=== PATIENT | male | born 1990 | race Caucasian/White ===

== ENCOUNTER 2017-02-06 03:08 | Emergency (ER) | payer OTHER ==
[2017-02-06 03:15] VITALS: TEMP 97.4
[2017-02-06] MEDS ORDERED: ONDANSETRON 4 MG/2 ML VIAL IVP STA (03:48)
[2017-02-06] MEDS ORDERED: HYDROmorphone 1 MG/ML 1 ML SYRINGE IVP STA (03:48)
[2017-02-06] MEDS ORDERED: SODIUM CHLORIDE 0.9% 1,000 ML IV STA (03:48)
[2017-02-06] MEDS: SODIUM CHLORIDE 0.9% 1,000 ML IV STA ×2 (03:59→08:39)
[2017-02-06 04:06] LABS: Basophils # (A) 0.1 k/uL (0-0.2); Basophils % (A) 1 %; CH 30.1; CHCM 34.9; Eosinophils # (A) 0.2 k/uL (0-0.7); Eosinophils % (A) 3 %; HCT 44.4 % (39.0-53.0); HDW 2.75; HGB 15.6 gm/dL (13.0-17.5); Luc # (Auto) 0.25; Luc % (Auto) 4; Lymphocytes # (A) 1.9 k/uL (1.0-4.8); Lymphocytes % (A) 31 %; MCH 30.4 pg (25.0-35.0); MCHC 35.1 g/dL (31.0-37.0); MCV 86.6 fL (80.0-100.0); Mean Platelet Volume 8.4; Monocytes # (A) 0.4 k/uL (0-1.0); Monocytes % (A) 7 %; Neutrophils # (A) 3.3 k/uL (1.3-7.7); Neutrophils % (A) 54 %; RBC 5.13 m/uL (4.30-5.90); RDW 13.4 % (11.5-15.5); WBC 6.1 k/uL (3.8-10.6); WBC (Perox) 5.77
[2017-02-06 04:17] LABS: ALT 61 U/L (21-72); AST 29 U/L (17-59); Alkaline Phosphatase 65 U/L (38-126); Amylase 74 U/L (30-110); Anion Gap 12 mmol/L; Blood Urea Nitrogen 13 mg/dL (9-20); Calcium 9.6 mg/dL (8.4-10.2); Carbon Dioxide 28 mmol/L (22-30); Chloride 102 mmol/L (98-107); Glucose 110 mg/dL (74-99); Non-African American GFR(MDRD) >60 (>60 ml/min/1.73 sqM); Potassium 4.4 mmol/L (3.5-5.1); Sodium 142 mmol/L (137-145); Total Bilirubin 0.7 mg/dL (0.2-1.3); Total Protein 8.2 g/dL (6.3-8.2)
[2017-02-06 04:19] LABS: Appearance,Urine Clear (Clear); Bilirubin,Urine Negative (Negative); Glucose,Urine (UA) Negative (Negative); Ketones,Urine Negative (Negative); Leukocyte Esterase,Urine Negative (Negative); Mucus,Urine Few /hpf; Nitrite,Urine Negative (Negative); PH, Urine 5.5 (5.0-8.0); Particle Count 4074; Protein,Urine Trace (Negative); RBC,Urine >182 /hpf (0-5); Specific Gravity,Urine 1.018 (1.001-1.035); UA Billing (MACRO vs. MICRO) MICRO; Urobilinogen,Urine <2.0 mg/dL (<2.0); WBC,Urine 3 /hpf (0-5)
--- NOTE | 2017-02-06 04:28 | XR ---
EXAM: XR Abdomen, 2 View. CLINICAL HISTORY: Reason: abdominal pain TECHNIQUE: Frontal supine view of the abdomen/pelvis. COMPARISON: CT abdomen pelvis dated 08/04/2015 FINDINGS: Gastrointestinal tract: Unremarkable. No dilation. Bones/joints: Unremarkable. IMPRESSION: Normal abdominal x-ray.
[2017-02-06] MEDS ORDERED: HYDROmorphone 1 MG/ML 1 ML SYRINGE IVP PRN (06:21)
--- NOTE | 2017-02-06 06:31 | ED ---
Abdominal Pain HPI - General Chief Complaint: Abdominal Pain Stated Complaint: Flank pain/Possible kidney stone Time Seen by Provider: 02/06/17 03:18 Source: patient Mode of arrival: ambulatory Limitations: no limitations - History of Present Illness Initial Comments: And has a history of kidney stones, is complaining about the right-sided flank pain for the last 24 hours he denies any fever no chills he had a nausea no vomiting and denies any trauma to the back at all. Denies any headaches no neck stiffness no abdominal pain except the right flank pain no frequency urgency dysuria no signs of TIA or CVA - Related Data Previous Rx's Medication Instructions Recorded HYDROmorphone [Dilaudid] 2 mg PO Q4H PRN #15 tab 02/06/17 Ibuprofen [Motrin] 800 mg PO TID #45 tab 02/06/17 Tamsulosin [Flomax] 0.4 mg PO DAILY #15 cap 02/06/17 Allergies Allergy/AdvReac Type Severity Reaction Status Date / Time No Known Allergies Allergy Verified 02/06/17 08:04 Review of Systems ROS Statement: Those systems with pertinent positive or pertinent negative responses have been documented in the HPI. ROS Other: All systems not noted in ROS Statement are negative. Past Medical History Additional Past Medical History / Comment(s): kidney stones History of Any Multi-Drug Resistant Organisms: None Reported Past Surgical History: No Surgical Hx Reported Past Psychological History: No Psychological Hx Reported Smoking Status: Current every day smoker Past Alcohol Use History: None Reported Past Drug Use History: None Reported General Exam - General Exam Comments Initial Comments: General: The patient is awake and alert, in no distress at this point Skin: Skin is warm and dry and no rashes or lesions are noted. Eye: Pupils are equal, round and reactive to light, extra-ocular movements are intact; there is normal conjunctiva bilaterally. Ears, nose, mouth and throat: There are moist mucous membranes and no oral lesions. Neck: The neck is supple, there is no tenderness or JVD. Cardiovascular: There is a regular rate and rhythm. No murmur, rub or gallop is appreciated. Respiratory: To auscultation bilateral, no wheezing no rhonchi no distress respiratory early noticed Gastrointestinal: Abdomen is nontender the right upper quadrant over the right lower quadrant area noticed some tenderness in the right flank area Back: There is no tenderness to palpation in the midline. There is no obvious deformity. Musculoskeletal: Normal ROM, no tenderness, There is no pedal edema. There is no calf tenderness or swelling. No cords were appreciated. Neurological: CN II-XII intact, Cranial nerves III through XII are intact. There are no obvious motor or sensory deficits. Coordination appears grossly intact. Speech is normal. Psychiatric: Cooperative, appropriate mood & affect, normal judgment. Limitations: no limitations Course Vital Signs 02/06/17 02/06/17 02/06/17 03:12 07:16 08:42 Temperature 97.4 F L Pulse Rate 94 79 85 Respiratory 18 14 15 Rate Blood Pressure 138/79 135/72 136/60 O2 Sat by Pulse 97 100 95 Oximetry Patient is reassessed at 625, his CBC is normal creatinine is normal, compressive metabolic panel is normal UA shows large amount of blood in there and his pain is returning though he got to 1 mg of Dilaudid considering pain is still there I will order a CT abdomen to rule out any hydronephrosis or hydroureter , He was assessed several times he was given now Dilaudid IV that would help his pain 10 pain will return him he had a couple of liters of fluids, is labs were reviewed and discussed with him his CBC, creatinine, compressive metabolic panel all within normal range CT renal colic showed 1 mm calculus at the right UVJ with sit causes minimal hydroureter nephrosis, considering the size of the stone was likely audible past he be sent home on Dilaudid 2 mg 1 by mouth every 8 when necessary with some [id number] Motrin 4-600 mg by mouth 3 times a day when necessary Flomax 0.4 mg 1 tablet by mouth daily and he be referred to Dr. Cortez for follow-up Medical Decision Making - Lab Data Result diagrams: 02/06/17 03:29 02/06/17 03:29 Lab Results 02/06/17 02/06/17 02/06/17 Range/Units 03:29 03:29 03:29 WBC 6.1 (3.8-10.6) k/uL RBC 5.13 (4.30-5.90) m/uL Hgb 15.6 (13.0-17.5) gm/dL Hct 44.4 (39.0-53.0) % MCV 86.6 (80.0-100.0) fL MCH 30.4 (25.0-35.0) pg MCHC 35.1 (31.0-37.0) g/dL RDW 13.4 (11.5-15.5) % Plt Count 231 (150-450) k/uL Neutrophils % 54 % Lymphocytes % 31 % Monocytes % 7 % Eosinophils % 3 % Basophils % 1 % Neutrophils # 3.3 (1.3-7.7) k/uL Lymphocytes # 1.9 (1.0-4.8) k/uL Monocytes # 0.4 (0-1.0) k/uL Eosinophils # 0.2 (0-0.7) k/uL Basophils # 0.1 (0-0.2) k/uL Sodium 142 (137-145) mmol/L Potassium 4.4 (3.5-5.1) mmol/L Chloride 102 (98-107) mmol/L Carbon Dioxide 28 (22-30) mmol/L Anion Gap 12 mmol/L BUN 13 (9-20) mg/dL Creatinine 0.90 (0.66-1.25) mg/dL Est GFR (MDRD) Af Amer >60 (>60 ml/min/1.73 sqM) Est GFR (MDRD) Non-Af >60 (>60 ml/min/1.73 sqM) Glucose 110 H (74-99) mg/dL Calcium 9.6 (8.4-10.2) mg/dL Total Bilirubin 0.7 (0.2-1.3) mg/dL AST 29 (17-59) U/L ALT 61 (21-72) U/L Alkaline Phosphatase 65 (38-126) U/L Total Protein 8.2 (6.3-8.2) g/dL Albumin 4.8 (3.5-5.0) g/dL Amylase 74 (30-110) U/L Lipase 103 (23-300) U/L Urine Color Yellow Urine Appearance Clear (Clear) Urine pH 5.5 (5.0-8.0) Ur Specific [place] 1.018 (1.001-1.035) Urine Protein Trace H (Negative) Urine Glucose (UA) Negative (Negative) Urine Ketones Negative (Negative) Urine Blood Moderate H (Negative) Urine Nitrite Negative (Negative) Urine Bilirubin Negative (Negative) Urine Urobilinogen <2.0 (<2.0) mg/dL Ur Leukocyte Esterase Negative (Negative) Urine RBC >182 H (0-5) /hpf Urine WBC 3 (0-5) /hpf Urine Mucus Few H (None) /hpf Disposition Clinical Impression: Right flank pain, Hematuria, Ureterolithiasis Disposition: HOME SELF-CARE Instructions: Ureteral Stones (ED) Prescriptions: HYDROmorphone [Dilaudid] 2 mg PO Q4H PRN #15 tab PRN Reason: Pain Ibuprofen [Motrin] 800 mg PO TID #45 tab Tamsulosin [Flomax] 0.4 mg PO DAILY #15 cap Referrals: None,Stated [Primary Care Provider] - 1-2 days
--- NOTE | 2017-02-06 06:55 | CT ---
EXAM: CT Abdomen and Pelvis Without Intravenous Contrast. CLINICAL HISTORY: Pain TECHNIQUE: Axial computed tomography images of the abdomen and pelvis without intravenous contrast. CTDI is 0.25, to 1.7 mGy and DLP is 11/19/02 mGy-cm This CT exam was performed using one or more of the following dose reduction techniques: automated exposure control, adjustment of the mA and/or kV according to patient size, and/or use of iterative reconstruction technique. COMPARISON: CT abdomen and pelvis dated 08/04/2015 FINDINGS: Lower thorax: No acute findings. ABDOMEN: Liver: Unremarkable. Gallbladder and bile ducts: Unremarkable. Pancreas: Unremarkable. Spleen: Unremarkable. Adrenals: Unremarkable. Kidneys and ureters: 1 mm calculus seen at the right UVJ (3-153), which causes minimal hydroureteronephrosis. Stomach and bowel: Unremarkable. Appendix: No findings to suggest acute appendicitis. PELVIS: Bladder: Unremarkable. Reproductive: Unremarkable as visualized. ABDOMEN and PELVIS: Intraperitoneal space: Unremarkable. Bones/joints: No acute fracture. No dislocation. Soft tissues: Small fat-containing umbilical hernia. Vasculature: Unremarkable. Lymph nodes: Unremarkable. IMPRESSION: 1 mm calculus seen at the right UVJ (3-153), which causes minimal hydroureteronephrosis.
[2017-02-06] MEDS ORDERED: SODIUM CHLORIDE 0.9% 1,000 ML IV ONE (08:38)
[2017-02-06] MEDS ORDERED: KETOROLAC 30 MG/ML 1 ML VIAL IVP STA (08:38)
[2017-02-06 09:12] VITALS: BP 130/82; PULSE 79; RESP 16
== END 2017-02-06 09:17 | disposition home or self-care (01) ==
LOC: EC 03:08
DX: N20.1 Calculus of ureter (principal); F17.200 Nicotine dependence, unspecified, uncomplicated
CPT/HCPCS: 36415; 80053; 82150; 83690; 85025; 81001; 74000; 74176; 99284; 96374; 96375 ×2; 96376; 96361; J2405; J1885; J1170

== ENCOUNTER 2017-02-28 22:42 | Emergency (ER) | payer OTHER ==
[2017-02-28] MEDS ORDERED: SODIUM CHLORIDE 0.9% 1,000 ML IV ONE (22:59)
[2017-02-28] MEDS ORDERED: KETOROLAC 30 MG/ML 1 ML VIAL IVP STA (23:03)
[2017-02-28] MEDS ORDERED: HYDROmorphone 1 MG/ML 1 ML SYRINGE IVP STA (23:03)
[2017-02-28] MEDS ORDERED: ONDANSETRON 4 MG/2 ML VIAL IVP STA (23:03)
--- NOTE | 2017-02-28 23:03 | ED ---
Abdominal Pain HPI - General Chief Complaint: Abdominal Pain Stated Complaint: kidney stone Time Seen by Provider: 02/28/17 22:59 Source: patient, RN notes reviewed Mode of arrival: ambulatory Limitations: no limitations - History of Present Illness Initial Comments: Patient is a 26-year-old male presents to the emergency room for evaluation of left-sided flank pain. Patient states the pain began today. Patient states he has a history of kidney stones. Patient states this feels exactly like a kidney stone. Patient states he took Flomax and hydromorphone today with no relief of symptoms. Patient states the pain is getting worse. Patient is a very nauseated but denies any vomiting. Patient also states he is having trouble urinating. Patient denies any blood in the urine. Patient denies chest pain or shortness of breath. Patient denies headache or dizziness. Patient states he is having 10 out of 10 constant pain. Patient states movement does not make pain any worse. - Related Data Home Medications Medication Instructions Recorded Confirmed HYDROmorphone [Dilaudid] 2 mg PO Q4H PRN 02/28/17 02/28/17 Tamsulosin HCl [Flomax] 0.4 mg PO DAILY 02/28/17 02/28/17 Previous Rx's Medication Instructions Recorded HYDROcodone/APAP 5-325MG [[place] 1 tab PO Q6HR PRN #12 tab 03/01/17 5-325] Ondansetron Odt [Zofran Odt] 4 mg PO Q8HR PRN #12 tab 03/01/17 Allergies Allergy/AdvReac Type Severity Reaction Status Date / Time No Known Allergies Allergy Verified 02/28/17 23:03 Review of Systems ROS Statement: Those systems with pertinent positive or pertinent negative responses have been documented in the HPI. ROS Other: All systems not noted in ROS Statement are negative. Past Medical History Additional Past Medical History / Comment(s): kidney stones History of Any Multi-Drug Resistant Organisms: None Reported Past Surgical History: No Surgical Hx Reported Past Psychological History: No Psychological Hx Reported Smoking Status: Current every day smoker Past Alcohol Use History: None Reported Past Drug Use History: None Reported General Exam - General Exam Comments Initial Comments: Sitting in exam room, uncomfortable secondary to pain but no acute distress. Limitations: no limitations General appearance: alert, in no apparent distress Head exam: Present: atraumatic, normocephalic, normal inspection Eye exam: Present: normal appearance ENT exam: Present: normal exam Neck exam: Present: normal inspection Respiratory exam: Present: normal lung sounds bilaterally. Absent: respiratory distress Cardiovascular Exam: Present: regular rate, normal rhythm, normal heart sounds GI/Abdominal exam: Present: soft, normal bowel sounds. Absent: distended, tenderness, guarding, rebound, rigid Extremities exam: Present: normal inspection Back exam: Present: normal inspection, CVA tenderness (L). Absent: CVA tenderness (R) Neurological exam: Present: alert, oriented X3, CN II-XII intact, normal gait Psychiatric exam: Present: normal affect, normal mood Skin exam: Present: warm, dry, intact, normal color. Absent: rash Course Vital Signs 02/28/17 22:56 Temperature 98.2 F Pulse Rate 80 Respiratory 20 Rate Blood Pressure 151/88 O2 Sat by Pulse 98 Oximetry Medical Decision Making - Medical Decision Making Patient is a 18-year-old male presents emergency room for evaluation of left- sided flank pain. Patient does have a history of kidney stones. Patient states this feels similar to kidney stone. Urinalysis significant for trace hematuria. KUB x-ray shows no sniffing findings. Patient is most likely passing a stone. Will send patient home with pain medications and anti-nausea medications and advised to follow-up with a urologist. Patient states he's feeling much better after pain medications and fluids given and would like to be discharged home. Patient states he understands everything that was discussed with him. Return parameters discussed. Case discussed with Dr. Bianchi. - Lab Data Result diagrams: 02/28/17 23:20 02/28/17 23:20 Lab Results 02/28/17 02/28/17 02/28/17 Range/Units 23:20 23:20 23:20 WBC 7.8 (3.8-10.6) k/uL RBC 5.32 (4.30-5.90) m/uL Hgb 16.0 (13.0-17.5) gm/dL Hct 45.6 (39.0-53.0) % MCV 85.8 (80.0-100.0) fL MCH 30.1 (25.0-35.0) pg MCHC 35.0 (31.0-37.0) g/dL RDW 13.0 (11.5-15.5) % Plt Count 232 (150-450) k/uL Neutrophils % 70 % Lymphocytes % 18 % Monocytes % 6 % Eosinophils % 3 % Basophils % 1 % Neutrophils # 5.5 (1.3-7.7) k/uL Lymphocytes # 1.4 (1.0-4.8) k/uL Monocytes # 0.5 (0-1.0) k/uL Eosinophils # 0.2 (0-0.7) k/uL Basophils # 0.1 (0-0.2) k/uL Sodium 139 (137-145) mmol/L Potassium 4.2 (3.5-5.1) mmol/L Chloride 100 (98-107) mmol/L Carbon Dioxide 26 (22-30) mmol/L Anion Gap 13 mmol/L BUN 16 (9-20) mg/dL Creatinine 1.04 (0.66-1.25) mg/dL Est GFR (MDRD) Af Amer >60 (>60 ml/min/1.73 sqM) Est GFR (MDRD) Non-Af >60 (>60 ml/min/1.73 sqM) Glucose 126 H (74-99) mg/dL Calcium 9.9 (8.4-10.2) mg/dL Total Bilirubin 0.7 (0.2-1.3) mg/dL AST 25 (17-59) U/L ALT 49 (21-72) U/L Alkaline Phosphatase 71 (38-126) U/L Total Protein 8.6 H (6.3-8.2) g/dL Albumin 4.8 (3.5-5.0) g/dL Urine Color Yellow Urine Appearance Clear (Clear) Urine pH 5.5 (5.0-8.0) Ur Specific [place] 1.025 (1.001-1.035) Urine Protein Trace H (Negative) Urine Glucose (UA) Negative (Negative) Urine Ketones Negative (Negative) Urine Blood Trace H (Negative) Urine Nitrite Negative (Negative) Urine Bilirubin Negative (Negative) Urine Urobilinogen <2.0 (<2.0) mg/dL Ur Leukocyte Esterase Negative (Negative) Urine RBC 1 (0-5) /hpf Urine WBC 1 (0-5) /hpf Ur Squamous Epith Cells <1 (0-4) /hpf Urine Mucus Few H (None) /hpf - Radiology Data Radiology results: report reviewed, image reviewed Disposition Clinical Impression: Acute flank pain Disposition: HOME SELF-CARE Condition: Good Instructions: Kidney Stones (ED), Flank Pain (ED), How to Strain Your Urine (ED ) Additional Instructions: Drink plenty of water. Take medications as needed. Please follow-up with a urologist. If any new symptom arises or symptoms worsen, return to ER as soon as possible. Prescriptions: HYDROcodone/APAP 5-325MG [[place] 5-325] 1 tab PO Q6HR PRN #12 tab PRN Reason: Pain Ondansetron Odt [Zofran Odt] 4 mg PO Q8HR PRN #12 tab PRN Reason: Nausea Referrals: Nilesh Stewart MD [STAFF PHYSICIAN] - 1-2 days Time of Disposition: 00:25
[2017-02-28 23:40] LABS: Appearance,Urine Clear (Clear); Bilirubin,Urine Negative (Negative); Glucose,Urine (UA) Negative (Negative); Ketones,Urine Negative (Negative); Leukocyte Esterase,Urine Negative (Negative); Mucus,Urine Few /hpf; Nitrite,Urine Negative (Negative); PH, Urine 5.5 (5.0-8.0); Particle Count 4251; Protein,Urine Trace (Negative); RBC,Urine 1 /hpf (0-5); Specific Gravity,Urine 1.025 (1.001-1.035); Squamous Epithelial Cell,Urine <1 /hpf (0-4); UA Billing (MACRO vs. MICRO) MICRO; Urobilinogen,Urine <2.0 mg/dL (<2.0); WBC,Urine 1 /hpf (0-5)
[2017-02-28 23:46] LABS: ALT 49 U/L (21-72); AST 25 U/L (17-59); Alkaline Phosphatase 71 U/L (38-126); Anion Gap 13 mmol/L; Blood Urea Nitrogen 16 mg/dL (9-20); Calcium 9.9 mg/dL (8.4-10.2); Carbon Dioxide 26 mmol/L (22-30); Chloride 100 mmol/L (98-107); Glucose 126 mg/dL (74-99); Non-African American GFR(MDRD) >60 (>60 ml/min/1.73 sqM); Potassium 4.2 mmol/L (3.5-5.1); Sodium 139 mmol/L (137-145); Total Bilirubin 0.7 mg/dL (0.2-1.3); Total Protein 8.6 g/dL (6.3-8.2)
[2017-03-01 00:04] LABS: Basophils # (A) 0.1 k/uL (0-0.2); Basophils % (A) 1 %; CH 30.7; CHCM 35.9; Eosinophils # (A) 0.2 k/uL (0-0.7); Eosinophils % (A) 3 %; HCT 45.6 % (39.0-53.0); HDW 2.81; Luc # (Auto) 0.21; Luc % (Auto) 3; Lymphocytes # (A) 1.4 k/uL (1.0-4.8); Lymphocytes % (A) 18 %; MCH 30.1 pg (25.0-35.0); MCV 85.8 fL (80.0-100.0); Mean Platelet Volume 7.4; Monocytes # (A) 0.5 k/uL (0-1.0); Monocytes % (A) 6 %; Neutrophils # (A) 5.5 k/uL (1.3-7.7); Neutrophils % (A) 70 %; RBC 5.32 m/uL (4.30-5.90); WBC 7.8 k/uL (3.8-10.6); WBC (Perox) 7.49
--- NOTE | 2017-03-01 00:20 | XR ---
EXAM: XR Abdomen Complete, 2 or More Views. CLINICAL HISTORY: Reason: Pain TECHNIQUE: Frontal view of the abdomen/pelvis with upright view of the abdomen. COMPARISON: Radiograph and CT of 02/06/17. FINDINGS: Free air: None. Gastrointestinal tract: Unremarkable. No dilation. Bones: No acute fracture. IMPRESSION: Unremarkable abdomen and pelvis.
[2017-03-01 00:45] VITALS: BP 131/83; PULSE 89; RESP 18; TEMP 97.6
== END 2017-03-01 00:45 | disposition home or self-care (01) ==
LOC: EC 22:42
DX: R10.9 Unspecified abdominal pain (principal); F17.200 Nicotine dependence, unspecified, uncomplicated; Z87.442 Personal history of urinary calculi; Z79.899 Other long term (current) drug therapy
CPT/HCPCS: 99284; 96374; 96375 ×2; 96361; 36415; 80053; 85025; 81001; 74000; J2405; J1885; J1170

== ENCOUNTER → 2017-08-01 | Outpatient (CLI) | payer OTHER ==
[2017-08-01 10:09] LABS: Blood Urea Nitrogen 11 mg/dL (9-20); Cholesterol 155 mg/dL (<200); Glucose 100 mg/dL (74-99); HDL Cholesterol 37 mg/dL (40-60); Lithium 0.3 mmol/L; Non-African American GFR(MDRD) >60 (>60 ml/min/1.73 sqM)
== END | disposition home or self-care (01) ==
LOC: LABWHC1 09:11
PROVIDERS: ATTEND Psychiatry & Neurology Psychiatry
DX: Z51.81 Encounter for therapeutic drug level monitoring (principal); Z79.899 Other long term (current) drug therapy
CPT/HCPCS: 36415; 80061; 80178; 82565; 82947; 83036; 84439; 84443; 84520

== ENCOUNTER 2018-04-30 13:15 | Emergency (ER) | payer OTHER ==
[2018-04-30 13:31] VITALS: RESP 18
[2018-04-30 14:08] LABS: Basophils % (A) 0 %; Eosinophils # (A) 0.4 k/uL (0-0.7); Eosinophils % (A) 5 %; Lymphocytes # (A) 1.4 k/uL (1.0-4.8); Lymphocytes % (A) 17 %; MCH 30.7 pg (25.0-35.0); MCHC 35.8 g/dL (31.0-37.0); MCV 85.8 fL (80.0-100.0); Mean Platelet Volume 7.8; Monocytes # (A) 0.4 k/uL (0-1.0); Monocytes % (A) 5 %; Neutrophils % (A) 72 %; Platelet Count 178 k/uL (150-450); RDW 13.6 % (11.5-15.5); WBC 8.3 k/uL (3.8-10.6)
--- NOTE | 2018-04-30 14:16 | XR ---
EXAMINATION TYPE: XR foot complete RT DATE OF EXAM: 04/30/2018 CLINICAL HISTORY: Right foot pain with no known injury TECHNIQUE: Frontal, lateral, and oblique images of the right foot are obtained. COMPARISON: None FINDINGS: There is no acute fracture/dislocation evident in the right foot. The joint spaces in the right foot appear within normal limits. There is nonspecific soft tissue swelling of the dorsal and medial midfoot. With more focal soft tissue swelling medial to the right first metatarsal phalangeal joint. IMPRESSION: Right midfoot and forefoot mild soft tissue swelling with no acute fracture or dislocatio n in the right foot.
[2018-04-30 14:19] LABS: Anion Gap 12 mmol/L; Blood Urea Nitrogen 15 mg/dL (9-20); C Reactive Protein 25.1 mg/L (<10.0); Calcium 9.8 mg/dL (8.4-10.2); Carbon Dioxide 24 mmol/L (22-30); Chloride 106 mmol/L (98-107); Glucose 108 mg/dL (74-99); Sodium 142 mmol/L (137-145); Uric Acid 6.9 mg/dL (3.5-8.5)
[2018-04-30] MEDS ORDERED: DEXAMETHASONE SOD PHOSPHATE 10 MG/ML 1 ML VIAL IM STA (14:45)
[2018-04-30] MEDS ORDERED: HYDROcodone/APAP 5-325MG 1 EACH TAB PO STA (14:46)
--- NOTE | 2018-04-30 14:57 | ED ---
General Adult HPI - General Chief complaint: Extremity Injury, Lower Stated complaint: rt foot pain Time Seen by Provider: 04/30/18 13:28 Source: patient, RN notes reviewed Mode of arrival: wheelchair Limitations: no limitations - History of Present Illness Initial comments: 27-year-old male presents to the emergency department for a chief complaint of right great toe pain 2 days. Patient denies injury. Patient states it is painful to touch and walk on. Patient denies history of gout. Patient denies any other joints or areas of redness. Patient has not tried anything for pain. Patient has no other complaints at this time including shortness of breath, chest pain, abdominal pain, nausea or vomiting, headache, or visual changes. - Related Data Home Medications Medication Instructions Recorded Confirmed HYDROmorphone [Dilaudid] 2 mg PO Q4H PRN 02/28/17 02/28/17 Tamsulosin HCl [Flomax] 0.4 mg PO DAILY 02/28/17 02/28/17 Previous Rx's Medication Instructions Recorded HYDROcodone/APAP 5-325MG [[place] 1 tab PO Q6HR PRN #12 tab 03/01/17 5-325] Ondansetron Odt [Zofran Odt] 4 mg PO Q8HR PRN #12 tab 03/01/17 Cephalexin [Keflex] 500 mg PO Q12H 10 Days cap 04/30/18 Indomethacin [Indocin] 50 mg PO Q8H 5 Days capsule 04/30/18 Allergies Allergy/AdvReac Type Severity Reaction Status Date / Time No Known Allergies Allergy Verified 04/30/18 13:29 Review of Systems ROS Statement: Those systems with pertinent positive or pertinent negative responses have been documented in the HPI. ROS Other: All systems not noted in ROS Statement are negative. Past Medical History Additional Past Medical History / Comment(s): kidney stones History of Any Multi-Drug Resistant Organisms: None Reported Past Surgical History: No Surgical Hx Reported Past Psychological History: Bipolar, Depression Smoking Status: Current every day smoker Past Alcohol Use History: None Reported Past Drug Use History: None Reported General Exam Limitations: no limitations General appearance: alert, in no apparent distress Head exam: Present: atraumatic, normocephalic, normal inspection Eye exam: Present: normal appearance ENT exam: Present: normal exam, mucous membranes moist Neck exam: Present: normal inspection. Absent: tenderness, meningismus, lymphadenopathy Respiratory exam: Present: normal lung sounds bilaterally. Absent: respiratory distress, wheezes, rales, rhonchi, stridor Cardiovascular Exam: Present: regular rate, normal rhythm, normal heart sounds. Absent: systolic murmur, diastolic murmur, rubs, gallop, clicks Extremities exam: Present: tenderness (tenderness to right great toe especially MTP joint), normal capillary refill (Refill less than 2 seconds and pedal pulse 2+ in the left lower extremity), joint swelling (Patient does have swelling in the MTP joint of the right great toe. Mild swelling in the foot. No tenderness in the rest of the foot.), other (Sensation intact in the right lower extremity). Absent: full ROM (limited flexion and extension of left great toe.), calf tenderness (tenderness in the right lower extremity. No redness swelling or warmth in the calf. Negative Isaak.) Course Vital Signs 04/30/18 13:29 Temperature 98.0 F Pulse Rate 95 Respiratory 18 Rate Blood Pressure 134/85 O2 Sat by Pulse 99 Oximetry Medical Decision Making - Medical Decision Making 27-year-old male presents to the emergency determine for a chief complaint of right great toe pain 2 days. Patient denies injury. Patient denies history of gout but states he thinks that's what it is. On exam patient has a slightly erythematous right great toe. Tenderness to the MTP joint. Mild swelling throughout the foot. No tenderness in the calf or swelling in the calf. Negative Homans sign. X-ray of the foot shows right mid foot and forefoot mild soft tissue swelling with no acute fracture or dislocation. CBC and CMP within normal limits. CRP slightly elevated. Patient clinically appears to have gout. Dr. Little agrees with this. Patient was given Decadron and [place] in the emergency department. He was given colchicine in the emergency department as well. Patient will be given indomethacin at home as well as Keflex to cover any bacterial cause. He will follow up with primary care in 1-2 days. He will return to the emergency department if he has any worsening symptoms or develops fevers. - Lab Data Result diagrams: 04/30/18 13:50 04/30/18 13:50 Lab Results 04/30/18 04/30/18 Range/Units 13:50 13:50 WBC 8.3 (3.8-10.6) k/uL RBC 4.90 (4.30-5.90) m/uL Hgb 15.0 (13.0-17.5) gm/dL Hct 42.0 (39.0-53.0) % MCV 85.8 (80.0-100.0) fL MCH 30.7 (25.0-35.0) pg MCHC 35.8 (31.0-37.0) g/dL RDW 13.6 (11.5-15.5) % Plt Count 178 (150-450) k/uL Neutrophils % 72 % Lymphocytes % 17 % Monocytes % 5 % Eosinophils % 5 % Basophils % 0 % Neutrophils # 6.0 (1.3-7.7) k/uL Lymphocytes # 1.4 (1.0-4.8) k/uL Monocytes # 0.4 (0-1.0) k/uL Eosinophils # 0.4 (0-0.7) k/uL Basophils # 0.0 (0-0.2) k/uL Sodium 142 (137-145) mmol/L Potassium 4.0 (3.5-5.1) mmol/L Chloride 106 (98-107) mmol/L Carbon Dioxide 24 (22-30) mmol/L Anion Gap 12 mmol/L BUN 15 (9-20) mg/dL Creatinine 0.70 (0.66-1.25) mg/dL Est GFR (CKD-EPI)AfAm >90 (>60 ml/min/1.73 sqM) Est GFR (CKD-EPI)NonAf >90 (>60 ml/min/1.73 sqM) Glucose 108 H (74-99) mg/dL Uric Acid 6.9 (3.5-8.5) mg/dL Calcium 9.8 (8.4-10.2) mg/dL C-Reactive Protein 25.1 H (<10.0) mg/L Disposition Clinical Impression: Gout Disposition: HOME SELF-CARE Condition: Good Instructions: Low Purine Diet (ED), Gout (ED) Additional Instructions: Please take colchicine and keflex as directed. Please follow-up with primary care provider in one to 2 days. Please return to the emergency department if you have any worsening symptoms. Prescriptions: Cephalexin [Keflex] 500 mg PO Q12H 10 Days cap Indomethacin [Indocin] 50 mg PO Q8H 5 Days capsule Is patient prescribed a controlled substance at d/c from ED?: No Referrals: [facility] [Primary Care Provider] - 1-2 days Ricky Farfan MD [STAFF PHYSICIAN] - 1-2 days Time of Disposition: 14:48
[2018-04-30] MEDS ORDERED: COLCHICINE 0.6 MG EACH PO STA (14:58)
[2018-04-30 15:18] VITALS: BP 122/70; PULSE 86; TEMP 98
== END 2018-04-30 15:17 | disposition home or self-care (01) ==
LOC: EC 13:15
DX: M10.9 Gout, unspecified (principal); R79.82 Elevated C-reactive protein (CRP); F17.200 Nicotine dependence, unspecified, uncomplicated; Z79.899 Other long term (current) drug therapy
CPT/HCPCS: 36415; 80048; 84550; 85025; 86140; 87040; 73630; 99283; 96372; J1100

== ENCOUNTER → 2018-05-13 | Outpatient (CLI) | payer OTHER ==
[2018-05-13 12:05] LABS: Blood Urea Nitrogen 15 mg/dL (9-20); Lithium 0.5 mmol/L
[2018-05-13 12:22] LABS: T4, Free (Free Thyroxine) 0.77 ng/dL (0.78-2.19)
== END | disposition home or self-care (01) ==
LOC: LABWHC1 11:09
PROVIDERS: ATTEND Nurse Practitioner
DX: Z51.81 Encounter for therapeutic drug level monitoring (principal); Z79.899 Other long term (current) drug therapy
CPT/HCPCS: 36415; 80178; 82565; 84439; 84443; 84520

== ENCOUNTER 2019-01-29 12:04 | Emergency (ER) | payer OTHER ==
[2019-01-29] MEDS ORDERED: IBUPROFEN 600 MG TAB PO STA (13:03)
--- NOTE | 2019-01-29 13:06 | ED ---
Fever HPI - General Chief Complaint: Fever Stated Complaint: ELOINA Time Seen by Provider: 01/29/19 12:42 Source: patient, RN notes reviewed Mode of arrival: ambulatory Limitations: no limitations - History of Present Illness Initial Comments: This is a 28-year-old male presents emergency Department with chief complaint of cough, congestion, body last 4-5 days. Patient states initially started with a migraine headache for 3 days and diffuse pain. Patient had some intermittent ice, nausea and abdominal discomfort. Patient states she also coughs so hard that his chest has hurt at times. Patient also complained of intermittent blurry vision. Patient denies any [id number] medications at this time. Patient does not feel well. He states he, as felt weak, run down. Patient does not take any daily medications. Patient has normal drug ALLERGIES. - Related Data Previous Rx's Medication Instructions Recorded Azithromycin [Zithromax Z-pack] 0 mg PO DIRECTED #1 pack 01/29/19 predniSONE 50 mg PO DAILY #5 tab 01/29/19 Allergies Allergy/AdvReac Type Severity Reaction Status Date / Time No Known Allergies Allergy Verified 01/29/19 14:21 Review of Systems ROS Statement: Those systems with pertinent positive or pertinent negative responses have been documented in the HPI. ROS Other: All systems not noted in ROS Statement are negative. Past Medical History Additional Past Medical History / Comment(s): kidney stones History of Any Multi-Drug Resistant Organisms: None Reported Past Surgical History: No Surgical Hx Reported Past Psychological History: Bipolar, Depression Smoking Status: Current every day smoker Past Alcohol Use History: None Reported Past Drug Use History: Marijuana General Exam Limitations: no limitations General appearance: alert, in no apparent distress Head exam: Present: atraumatic, normocephalic, normal inspection Eye exam: Present: normal appearance, PERRL, EOMI. Absent: scleral icterus, conjunctival injection, periorbital swelling ENT exam: Present: normal exam, normal oropharynx, mucous membranes moist, TM's normal bilaterally, normal external ear exam Neck exam: Present: normal inspection, full ROM. Absent: tenderness, meningismus, lymphadenopathy Respiratory exam: Present: normal lung sounds bilaterally. Absent: respiratory distress, wheezes, rales, rhonchi, stridor Cardiovascular Exam: Present: normal rhythm, tachycardia, normal heart sounds. Absent: systolic murmur, diastolic murmur, rubs, gallop, clicks Neurological exam: Present: alert Skin exam: Present: warm, dry, intact, normal color. Absent: rash Course Vital Signs 01/29/19 12:14 Temperature 98.4 F Pulse Rate 117 H Respiratory 18 Rate Blood Pressure 126/85 O2 Sat by Pulse 96 Oximetry Medical Decision Making - Medical Decision Making 28-year-old male presented from it with complaints of URI symptoms, not feeling well, coughing fits. Patient symptoms more consistent with acute bronchitis, influenza negative, chest x-ray no evidence of pneumonia. Patient will be discharged advised take [id number] cough and cold medications and follow- up with PCP. Patient agrees with plan. - Lab Data Lab Results 01/29/19 01/29/19 Range/Units 13:31 13:35 POC Glucose (mg/dL) 114 H (75-99) mg/dL POC Glu Programmer ID Jimena López Influenza Type A RNA Not Detected (Not Detectd) Influenza Type B (PCR) Not Detected (Not Detectd) Disposition Clinical Impression: Bronchitis Disposition: HOME SELF-CARE Condition: Stable Instructions (If sedation given, give patient instructions): Acute Bronchitis (ED) Additional Instructions: Please return to the Emergency Department if symptoms worsen or any other concerns. Prescriptions: predniSONE 50 mg PO DAILY #5 tab Azithromycin [Zithromax Z-pack] 0 mg PO DIRECTED #1 pack Is patient prescribed a controlled substance at d/c from ED?: No Referrals: None,Stated [Primary Care Provider] - 1-2 days Time of Disposition: 14:34
--- NOTE | 2019-01-29 13:18 | XR ---
EXAMINATION TYPE: XR chest 2V DATE OF EXAM: 01/29/2019 COMPARISON: NONE HISTORY: Flulike symptoms. Cough and pain per order. TECHNIQUE: Frontal and lateral views of the chest are obtained. FINDINGS: Somewhat low lung volumes are present. There is no focal air space opacity, pleural effusi on, or pneumothorax seen. The cardiac silhouette size is enlarged. The osseous structures are inta ct. IMPRESSION: Cardiomegaly without acute pulmonary process.
[2019-01-29 13:39] LABS: Glucose,Whole Blood 114 mg/dL (75-99)
[2019-01-29 15:00] VITALS: BP 131/72; PULSE 101; RESP 20; TEMP 97.6
== END 2019-01-29 14:55 | disposition home or self-care (01) ==
LOC: EC 12:04
DX: J40 Bronchitis, not specified as acute or chronic (principal); H53.8 Other visual disturbances; F17.200 Nicotine dependence, unspecified, uncomplicated; Z88.8 Allergy status to other drugs, medicaments and biological substances
CPT/HCPCS: 36415; 71046; 87502; 99283

== ENCOUNTER 2019-02-27 16:39 | Emergency (ER) | payer OTHER ==
[2019-02-27] MEDS ORDERED: SODIUM CHLORIDE 0.9% 1,000 ML IV STA (16:46)
[2019-02-27] MEDS ORDERED: LORazepam 1 MG TAB PO STA (17:39)
[2019-02-27 17:44] LABS: Basophils # (A) 0.1 k/uL (0-0.2); Basophils % (A) 1 %; Eosinophils # (A) 0.4 k/uL (0-0.7); Eosinophils % (A) 4 %; HCT 43.6 % (39.0-53.0); HGB 14.3 gm/dL (13.0-17.5); Lymphocytes # (A) 2.2 k/uL (1.0-4.8); Lymphocytes % (A) 22 %; MCH 28.6 pg (25.0-35.0); MCHC 32.8 g/dL (31.0-37.0); MCV 87.4 fL (80.0-100.0); Mean Platelet Volume 7.4; Monocytes # (A) 0.5 k/uL (0-1.0); Monocytes % (A) 5 %; Neutrophils # (A) 6.7 k/uL (1.3-7.7); Neutrophils % (A) 68 %; Platelet Count 237 k/uL (150-450); RDW 13.8 % (11.5-15.5); WBC 9.9 k/uL (3.8-10.6)
[2019-02-27 17:58] LABS: ALT 87 U/L (21-72); AST 40 U/L (17-59); Albumin 4.6 g/dL (3.5-5.0); Alkaline Phosphatase 68 U/L (38-126); Anion Gap 6 mmol/L; Blood Urea Nitrogen 13 mg/dL (9-20); Calcium 9.9 mg/dL (8.4-10.2); Carbon Dioxide 26 mmol/L (22-30); Chloride 107 mmol/L (98-107); Glucose 93 mg/dL (74-99); Magnesium 1.8 mg/dL (1.6-2.3); Potassium 4.3 mmol/L (3.5-5.1); Sodium 139 mmol/L (137-145); Total Bilirubin 0.7 mg/dL (0.2-1.3); Total Protein 7.6 g/dL (6.3-8.2)
[2019-02-27 18:02] LABS: D-Dimer 0.25 mg/L FEU (<0.60); Partial Thromboplastin Time 24.1 sec (22.0-30.0); Prothrombin Time 10.4 sec (9.0-12.0)
--- NOTE | 2019-02-27 18:49 | XR ---
EXAMINATION TYPE: XR chest 2V DATE OF EXAM: 02/27/2019 COMPARISON: 01/29/2019 HISTORY: Chest pain TECHNIQUE: Frontal and lateral views of the chest are obtained. FINDINGS: Heart and mediastinum are normal. Lungs are clear. Diaphragm is normal. Bony thorax appear s normal. IMPRESSION: Normal chest. No change.
[2019-02-27] MEDS ORDERED: KETOROLAC 60 MG/2 ML VIAL IM STA (18:50)
--- NOTE | 2019-02-27 18:57 | ED ---
General Adult HPI - General Chief complaint: Chest Pain Stated complaint: Rib pain Time Seen by Provider: 02/27/19 16:46 Source: patient, RN notes reviewed, old records reviewed Mode of arrival: ambulatory Limitations: no limitations - History of Present Illness Initial comments: 28-year-old male patient with past medical history of bronchitis approximately 3 weeks ago presents to ED with approximately 3 weeks of right-sided rib pain. Patient reports that this pain is worse with movement, tender to palpation. Patient also reports that he does have a mild pleuritic component to this pain. Patient denies any chest pain in anterior sternum or anterior chest wall. Patient denies any chest pain at rest. Patient has any shortness of breath. Patient denies any headache in vision. Patient has abdominal pain, radiation of pain, diaphoresis, nausea vomiting or diarrhea. Systemic: Pt denies fatigue, myalgia, fever/chills, rash. Pt denies weakness, night sweats, weight loss. Neuro: Pt denies headache, visual disturbances, syncope or pre-syncope. HEENT: Pt denies ocular discharge or irritation, otalgia, rhinorrhea, pharyngitis or notable lymphadenopathy. Cardiopulmonary: Pt denies SOB, heart palpitations, dyspnea on exertion. Abdominal/GI: Pt denies abdominal pain, n/v/d. : Pt denies dysuria, burning w/ urination, frequency/urgency. Denies new onset urinary or bowel incontinence. MSK: Pt denies myalgia, loss of strength or function in extremities. Neuro: Pt denies new onset weakness, paresthesias. - Related Data Home Medications Medication Instructions Recorded Confirmed Ibuprofen [Motrin Ib] 400 mg PO Q6H PRN 02/27/19 02/27/19 Previous Rx's Medication Instructions Recorded Ibuprofen [Motrin] 600 mg PO Q6HR PRN #40 day 02/27/19 Allergies Allergy/AdvReac Type Severity Reaction Status Date / Time No Known Allergies Allergy Verified 02/27/19 17:14 Review of Systems ROS Statement: Those systems with pertinent positive or pertinent negative responses have been documented in the HPI. ROS Other: All systems not noted in ROS Statement are negative. Past Medical History Additional Past Medical History / Comment(s): kidney stones History of Any Multi-Drug Resistant Organisms: None Reported Past Surgical History: No Surgical Hx Reported Past Psychological History: Bipolar, Depression Smoking Status: Current every day smoker Past Alcohol Use History: None Reported Past Drug Use History: Marijuana General Exam - General Exam Comments Initial Comments: Constitutional: NAD, AOX3, Pt has pleasant affect. HEENT: NC/AT, trachea midline, neck supple, no lymphadenopathy. Posterior pharynx non erythematous, without exudates. External ears appear normal, without discharge. Mucous membranes moist. Eyes PERRLA, EOM intact. There is no scleral icterus. No pallor noted. Cardiopulmonary: RRR, no murmurs, rubs or gallops, no JVD noted. Lungs CTAB in anterior and posterior zaman. No peripheral edema. Abdominal exam: Abdomen soft and non-distended. Abdomen non-tender to palpation in all 4 quadrants. Bowel sounds active in LLQ. No hepatosplenomegaly. No ecchymosis Neuro: CN II-XII grossly intact. No nuchal rigidity. MSK: Right costal region at anterior axillary line mildly tender to palpation. No erythema, no ecchymoses, no edema. He states that this is the pain that he is experiencing. No posterior calf tenderness bilaterally, homans sign negative bilaterally. Posterior tibialis and radial pulse +2 bilaterally. Sensation intact in upper and lower extremities. Full active ROM in upper and lower extremities, 5/5 stregnth. Limitations: no limitations Course Vital Signs 02/27/19 02/27/19 02/27/19 16:40 18:44 18:48 Temperature 97.4 F L Pulse Rate 115 H 98 Respiratory 20 18 18 Rate Blood Pressure 128/75 137/72 O2 Sat by Pulse 97 Oximetry Medical Decision Making - Medical Decision Making 28-year-old male patient with past medical history of bronchitis approximately 3 weeks ago presents to ED with approximately 3 weeks of right-sided rib pain. Patient reports that this pain is worse with movement, tender to palpation. Patient also reports that he does have a mild pleuritic component to this pain. Patient denies any chest pain in anterior sternum or anterior chest wall. Patient denies any chest pain at rest. Patient has any shortness of breath. Patient denies any headache in vision. Patient has abdominal pain, radiation of pain, diaphoresis, nausea vomiting or diarrhea. Pt VSS, afebrile. Physical exam: Right costal region at anterior axillary line mildly tender to palpation. No erythema, no ecchymoses, no edema. He states that this is the pain that he is experiencing. Labs investigations revealed non-impressive CBC, CMP. Patient coagulation studies within normal limits. D-dimer negative. Troponin negative. EKG not concerning for acute ischemia. CXR did not display acute process. Repeat history taking states that he is very anxious. Administered toradol and ativan. Patient to return on abdomen. Patient is likely experiencing pleurisy secondary to recent bronchitis. Patient to be discharged with ibuprofen. Patient to follow up with primary care provider in 1-2 days. Patient returned ER physician worsens in anyway. Case discussed with Dr. Arriola. - Lab Data Result diagrams: 02/27/19 17:30 02/27/19 17:30 Lab Results 02/27/19 02/27/19 02/27/19 Range/Units 17:30 17:30 17:30 WBC 9.9 (3.8-10.6) k/uL RBC 5.00 (4.30-5.90) m/uL Hgb 14.3 (13.0-17.5) gm/dL Hct 43.6 (39.0-53.0) % MCV 87.4 (80.0-100.0) fL MCH 28.6 (25.0-35.0) pg MCHC 32.8 (31.0-37.0) g/dL RDW 13.8 (11.5-15.5) % Plt Count 237 (150-450) k/uL Neutrophils % 68 % Lymphocytes % 22 % Monocytes % 5 % Eosinophils % 4 % Basophils % 1 % Neutrophils # 6.7 (1.3-7.7) k/uL Lymphocytes # 2.2 (1.0-4.8) k/uL Monocytes # 0.5 (0-1.0) k/uL Eosinophils # 0.4 (0-0.7) k/uL Basophils # 0.1 (0-0.2) k/uL PT 10.4 (9.0-12.0) sec INR 1.0 (<1.2) APTT 24.1 (22.0-30.0) sec D-Dimer 0.25 (<0.60) mg/L FEU Sodium 139 (137-145) mmol/L Potassium 4.3 (3.5-5.1) mmol/L Chloride 107 (98-107) mmol/L Carbon Dioxide 26 (22-30) mmol/L Anion Gap 6 mmol/L BUN 13 (9-20) mg/dL Creatinine 0.90 (0.66-1.25) mg/dL Est GFR (CKD-EPI)AfAm >90 (>60 ml/min/1.73 sqM) Est GFR (CKD-EPI)NonAf >90 (>60 ml/min/1.73 sqM) Glucose 93 (74-99) mg/dL Calcium 9.9 (8.4-10.2) mg/dL Magnesium 1.8 (1.6-2.3) mg/dL Total Bilirubin 0.7 (0.2-1.3) mg/dL AST 40 (17-59) U/L ALT 87 H (21-72) U/L Alkaline Phosphatase 68 (38-126) U/L Troponin I (0.000-0.034) ng/mL Total Protein 7.6 (6.3-8.2) g/dL Albumin 4.6 (3.5-5.0) g/dL 02/27/19 Range/Units 17:30 WBC (3.8-10.6) k/uL RBC (4.30-5.90) m/uL Hgb (13.0-17.5) gm/dL Hct (39.0-53.0) % MCV (80.0-100.0) fL MCH (25.0-35.0) pg MCHC (31.0-37.0) g/dL RDW (11.5-15.5) % Plt Count (150-450) k/uL Neutrophils % % Lymphocytes % % Monocytes % % Eosinophils % % Basophils % % Neutrophils # (1.3-7.7) k/uL Lymphocytes # (1.0-4.8) k/uL Monocytes # (0-1.0) k/uL Eosinophils # (0-0.7) k/uL Basophils # (0-0.2) k/uL PT (9.0-12.0) sec INR (<1.2) APTT (22.0-30.0) sec D-Dimer (<0.60) mg/L FEU Sodium (137-145) mmol/L Potassium (3.5-5.1) mmol/L Chloride (98-107) mmol/L Carbon Dioxide (22-30) mmol/L Anion Gap mmol/L BUN (9-20) mg/dL Creatinine (0.66-1.25) mg/dL Est GFR (CKD-EPI)AfAm (>60 ml/min/1.73 sqM) Est GFR (CKD-EPI)NonAf (>60 ml/min/1.73 sqM) Glucose (74-99) mg/dL Calcium (8.4-10.2) mg/dL Magnesium (1.6-2.3) mg/dL Total Bilirubin (0.2-1.3) mg/dL AST (17-59) U/L ALT (21-72) U/L Alkaline Phosphatase (38-126) U/L Troponin I <0.012 (0.000-0.034) ng/mL Total Protein (6.3-8.2) g/dL Albumin (3.5-5.0) g/dL - EKG Data -: EKG Interpreted by Me EKG Comments: Ventricular rate 107,. NV interval 180, QRS 98, QT/QTC 328/437. Sinus tachycardia, no concern for acute ischemia. Disposition Clinical Impression: Pleurisy, Atypical chest pain Disposition: HOME SELF-CARE Condition: Stable Instructions (If sedation given, give patient instructions): Pleurisy (ED) Additional Instructions: Patient to adhere to previously discussed treatment plan and will take medication(s) as directed. Patient to follow up with PCP in 1-2 days. Patient to return to ED if symptoms do not improve. Please take ibuprofen as directed. Please follow up with PCP in 1-2 days. Please return to ER if condition worsens in anyway. Prescriptions: Ibuprofen [Motrin] 600 mg PO Q6HR PRN #40 day PRN Reason: Pain Is patient prescribed a controlled substance at d/c from ED?: No Referrals: [facility] [Primary Care Provider] - 1-2 days
[2019-02-27 19:50] VITALS: BP 138/76; PULSE 92; RESP 16; TEMP 97.8
== END 2019-02-27 19:40 | disposition home or self-care (01) ==
LOC: EC 16:39
DX: R09.1 Pleurisy (principal); F17.200 Nicotine dependence, unspecified, uncomplicated
CPT/HCPCS: 36415; 93005; 85379; 80053; 83735; 84484; 85025; 85610; 85730; 71046; 99284; 96360; 96372; J1885

== ENCOUNTER 2019-03-23 08:48 | Emergency (ER) | payer OTHER ==
[2019-03-23] MEDS ORDERED: KETOROLAC 60 MG/2 ML VIAL IM STA (09:17)
--- NOTE | 2019-03-23 09:34 | XR ---
EXAMINATION TYPE: XR chest 2V DATE OF EXAM: 03/23/2019 COMPARISON: 02/27/2019 HISTORY: 28-year-old male right-sided pain TECHNIQUE: PA and lateral views FINDINGS: Heart normal size. Aorta and pulmonary vasculature within normal limits. Mild peribronchial cuffing. No consolidation or pleural effusion. IMPRESSION: Mild peribronchial cuffing could reflect bronchitis or asthma. No infiltrate or pleural effusion.
--- NOTE | 2019-03-23 09:40 | ED ---
General Adult HPI - General Chief complaint: Chest Pain Stated complaint: Pleurisy Time Seen by Provider: 03/23/19 09:05 Source: patient, RN notes reviewed Mode of arrival: ambulatory Limitations: no limitations - History of Present Illness Initial comments: Patient's a 28-year-old male presented to the emergency room today with chief complaint of increased right-sided rib pain. Patient does admit that he seen here in the emergency room approximately 3 weeks ago diagnosed with pleurisy. He states he was on ibuprofen please finish this prescription. He does admit that he had some increased cough congestion this past week. He states that the cough congestion has improved but last night began having increased pain to the right side of ribs after coughing. Patient does admit that the pain is worse with certain movements. Patient denies any shortness of breath but states pain is worse when he takes deep inspiration. The patient denies any other complaints at this time. Patient denies any recent fever, chills, shortness of breath, chest pain, back pain, abdominal pain, nausea or vomiting, numbness or tingling, headaches or visual changes, or any other complaints - Related Data Previous Rx's Medication Instructions Recorded Ibuprofen [Motrin] 600 mg PO Q6HR PRN #40 day 03/23/19 predniSONE 50 mg PO DAILY #5 tab 03/23/19 Allergies Allergy/AdvReac Type Severity Reaction Status Date / Time No Known Allergies Allergy Verified 03/23/19 09:08 Review of Systems ROS Statement: Those systems with pertinent positive or pertinent negative responses have been documented in the HPI. ROS Other: All systems not noted in ROS Statement are negative. Past Medical History Additional Past Medical History / Comment(s): kidney stones History of Any Multi-Drug Resistant Organisms: None Reported Past Surgical History: No Surgical Hx Reported Past Psychological History: Bipolar, Depression Smoking Status: Current every day smoker Past Alcohol Use History: None Reported Past Drug Use History: Marijuana General Exam - General Exam Comments Initial Comments: General: The patient is awake and alert, in no distress, and does not appear acutely ill. Eye: There is normal conjunctiva bilaterally. No signs of icterus. Ears, nose, mouth and throat: There are moist mucous membranes and no oral lesions. Neck: The neck is supple, there is no tenderness or JVD. Cardiovascular: There is a regular rate and rhythm. No murmur, rub or gallop is appreciated. Pain reproduced to the right lateral ribs. Respiratory: Lungs are clear to auscultation, respirations are non-labored, breath sounds are equal. No wheezes, stridor, rales, or rhonchi. Musculoskeletal: Normal ROM, no tenderness. Neurological: A&O x 3. CN II-XII intact, There are no obvious motor or sensory deficits. Coordination appears grossly intact. Speech is normal. Skin: Skin is warm and dry and no rashes or lesions are noted. Psychiatric: Cooperative, appropriate mood & affect, normal judgment. Limitations: no limitations Course Vital Signs 03/23/19 08:52 Temperature 97.4 F L Pulse Rate 101 H Respiratory 22 Rate Blood Pressure 128/85 O2 Sat by Pulse 97 Oximetry Medical Decision Making - Medical Decision Making Patient reexamined at this time shows no signs of distress. Was given Toradol here in the emergency room doesn't to some improvement of his pain. Patient's chest x-rays negative for any acute abnormalities. Patient's labs been reviewed. Patient labs were unremarkable. D-dimer negative. Results were discussed with patient. Patient discharged on continued on anti-inflammatories and given a course of steroids for his symptoms. Advised to RETURN here to emergency room if any symptoms increase or worsen. - Lab Data Result diagrams: 03/23/19 09:40 03/23/19 09:40 Lab Results 03/23/19 03/23/19 03/23/19 Range/Units 09:40 09:40 09:40 WBC 5.9 (3.8-10.6) k/uL RBC 5.06 (4.30-5.90) m/uL Hgb 15.0 (13.0-17.5) gm/dL Hct 44.0 (39.0-53.0) % MCV 86.9 (80.0-100.0) fL MCH 29.6 (25.0-35.0) pg MCHC 34.1 (31.0-37.0) g/dL RDW 13.6 (11.5-15.5) % Plt Count 239 (150-450) k/uL Neutrophils % 53 % Lymphocytes % 32 % Monocytes % 5 % Eosinophils % 7 % Basophils % 1 % Neutrophils # 3.2 (1.3-7.7) k/uL Lymphocytes # 1.9 (1.0-4.8) k/uL Monocytes # 0.3 (0-1.0) k/uL Eosinophils # 0.4 (0-0.7) k/uL Basophils # 0.0 (0-0.2) k/uL D-Dimer 0.18 (<0.60) mg/L FEU Sodium 140 (137-145) mmol/L Potassium 4.4 (3.5-5.1) mmol/L Chloride 106 (98-107) mmol/L Carbon Dioxide 26 (22-30) mmol/L Anion Gap 8 mmol/L BUN 18 (9-20) mg/dL Creatinine 0.83 (0.66-1.25) mg/dL Est GFR (CKD-EPI)AfAm >90 (>60 ml/min/1.73 sqM) Est GFR (CKD-EPI)NonAf >90 (>60 ml/min/1.73 sqM) Glucose 112 H (74-99) mg/dL Calcium 9.5 (8.4-10.2) mg/dL Disposition Clinical Impression: Pleurisy Disposition: HOME SELF-CARE Condition: Good Instructions (If sedation given, give patient instructions): Costochondritis (ED) Additional Instructions: Please use medication as discussed. Please follow-up with family doctor in the next 2 days of symptoms have not improved. Please return to emergency room if the symptoms increase or worsen or for any other concerns. Prescriptions: Ibuprofen [Motrin] 600 mg PO Q6HR PRN #40 day PRN Reason: Pain predniSONE 50 mg PO DAILY #5 tab Is patient prescribed a controlled substance at d/c from ED?: No Referrals: [facility] [Primary Care Provider] - 1-2 days Time of Disposition: 10:56
[2019-03-23] MEDS ORDERED: SODIUM CHLORIDE 0.9% IRRIG 1,000 ML BTL IRRIGATION ONE (09:45)
[2019-03-23 10:26] LABS: Basophils % (A) 1 %; Eosinophils # (A) 0.4 k/uL (0-0.7); Eosinophils % (A) 7 %; Lymphocytes # (A) 1.9 k/uL (1.0-4.8); Lymphocytes % (A) 32 %; MCH 29.6 pg (25.0-35.0); MCHC 34.1 g/dL (31.0-37.0); MCV 86.9 fL (80.0-100.0); Mean Platelet Volume 8.2; Monocytes # (A) 0.3 k/uL (0-1.0); Monocytes % (A) 5 %; Neutrophils # (A) 3.2 k/uL (1.3-7.7); Neutrophils % (A) 53 %; Platelet Count 239 k/uL (150-450); RBC 5.06 m/uL (4.30-5.90); RDW 13.6 % (11.5-15.5); WBC 5.9 k/uL (3.8-10.6)
[2019-03-23 10:39] LABS: Anion Gap 8 mmol/L; Blood Urea Nitrogen 18 mg/dL (9-20); Calcium 9.5 mg/dL (8.4-10.2); Carbon Dioxide 26 mmol/L (22-30); Chloride 106 mmol/L (98-107); Glucose 112 mg/dL (74-99); Potassium 4.4 mmol/L (3.5-5.1); Sodium 140 mmol/L (137-145)
[2019-03-23 11:21] VITALS: BP 142/95; PULSE 68; RESP 16; TEMP 98.2
== END 2019-03-23 11:21 | disposition home or self-care (01) ==
LOC: EC 08:48
DX: R09.1 Pleurisy (principal); R07.81 Pleurodynia; R05 Cough; F17.200 Nicotine dependence, unspecified, uncomplicated; Z87.442 Personal history of urinary calculi
CPT/HCPCS: 36415; 93005; 85379; 80048; 85025; 71046; 99284; 96372; J1885

== ENCOUNTER 2019-06-16 18:19 | Emergency (ER) | payer OTHER ==
[2019-06-16 18:29] VITALS: TEMP 97.9
[2019-06-16] MEDS ORDERED: SODIUM CHLORIDE 0.9% 1,000 ML IV STA (19:41)
[2019-06-16 19:58] LABS: Basophils # (A) 0.1 k/uL (0-0.2); Basophils % (A) 1 %; Eosinophils # (A) 0.3 k/uL (0-0.7); Eosinophils % (A) 2 %; HCT 44.8 % (39.0-53.0); Lymphocytes # (A) 2.2 k/uL (1.0-4.8); Lymphocytes % (A) 19 %; MCH 29.2 pg (25.0-35.0); MCHC 33.4 g/dL (31.0-37.0); MCV 87.4 fL (80.0-100.0); Mean Platelet Volume 7.8; Monocytes # (A) 0.7 k/uL (0-1.0); Monocytes % (A) 6 %; Neutrophils # (A) 8.6 k/uL (1.3-7.7); Neutrophils % (A) 71 %; Platelet Count 246 k/uL (150-450); RBC 5.13 m/uL (4.30-5.90); RDW 15.2 % (11.5-15.5); WBC 12.1 k/uL (3.8-10.6)
[2019-06-16 20:08] LABS: Albumin 4.6 g/dL (3.5-5.0); Calcium 9.8 mg/dL (8.4-10.2); Potassium 3.9 mmol/L (3.5-5.1); Total Protein 7.6 g/dL (6.3-8.2)
[2019-06-16 20:17] LABS: Glucose,Whole Blood 100 mg/dL (75-99)
--- NOTE | 2019-06-16 20:23 | XR ---
EXAMINATION: XR chest 2V DATE AND TIME: 06/16/2019 8:11 PM CLINICAL INDICATION: [facility]; cough TECHNIQUE: Departmental protocol COMPARISON: 03/23/2019 FINDINGS: The overlying soft tissues are prominent. There is nonspecific added opacity superimposed over the tip of the scapula, measuring approximately 2.5 cm, superimposed over the right lower lung zone laterally. This finding is not definitely seen on the lateral view. The lungs are otherwise clear and well expanded. The pleural spaces are negative. The cardiac silhouette is not enlarged. The remainder of the mediastinal silhouette is unremarkable. The skeletal structures and soft tissues are negative for acute findings. IMPRESSION: No definite acute radiographic process. However, repeat frontal radiograph with the upper extremities high up over the patient's head recommended in order to remove the scapulae from the [id number].
[2019-06-16 20:51] LABS: Appearance,Urine Cloudy (Clear); Bilirubin,Urine Negative (Negative); Blood,Urine Negative (Negative); Color,Urine Yellow; Glucose,Urine (UA) Negative (Negative); Hyaline Casts,Urine 101 /lpf (0-2); Ketones,Urine 1+ (Negative); Leukocyte Esterase,Urine Trace (Negative); Mucus,Urine Many /hpf; Nitrite,Urine Negative (Negative); PH, Urine 6.5 (5.0-8.0); Protein,Urine 2+ (Negative); RBC,Urine 15 /hpf (0-5); Specific Gravity,Urine 1.034 (1.001-1.035); WBC,Urine 13 /hpf (0-5)
--- NOTE | 2019-06-16 20:53 | ED ---
General Adult HPI - General Chief complaint: Dizziness Stated complaint: Heat exhaustion Time Seen by Provider: 06/16/19 18:41 Source: patient Mode of arrival: ambulatory Limitations: no limitations - History of Present Illness Initial comments: The patient is a 28-year-old male with no past medical history who presents to the emergency room with reported dizziness. The patient states that he left Friday to go hiking. He has been carrying a 50 pound bag on his back. He states that today be began feeling dehydrated and weak. He was able to get to the river where he drank some water. He began having tunnel vision and thought he was going to pass out. States he felt very shaky. The patient's mother reports that he is normally not this physically active and may have "overdone it". The patient admits to slight shortness of breath. Denies any chest pain. He admits to tingling in his bilateral hands. Denies any unilateral numbness or weakness. No known trauma. Denies any headaches or visual changes. No abdominal pain nausea or vomiting. No report of diarrhea, constipation or hematochezia. Denies any changes in his urination to include dysuria, hematuria or difficulty voiding. There are no other alleviating, precipitating or m odifying factors - Related Data Home Medications Medication Instructions Recorded Confirmed No Known Home Medications 06/16/19 06/16/19 Allergies Allergy/AdvReac Type Severity Reaction Status Date / Time No Known Allergies Allergy Verified 06/16/19 18:49 Review of Systems ROS Statement: Those systems with pertinent positive or pertinent negative responses have been documented in the HPI. ROS Other: All systems not noted in ROS Statement are negative. Past Medical History Additional Past Medical History / Comment(s): kidney stones History of Any Multi-Drug Resistant Organisms: None Reported Past Surgical History: No Surgical Hx Reported Past Psychological History: Bipolar, Depression Smoking Status: Current every day smoker Past Alcohol Use History: None Reported Past Drug Use History: Marijuana General Exam Limitations: no limitations General appearance: alert, in no apparent distress Head exam: Present: atraumatic, normocephalic, normal inspection Eye exam: Present: normal appearance, PERRL, EOMI. Absent: scleral icterus, conjunctival injection, periorbital swelling ENT exam: Present: normal exam, mucous membranes moist Neck exam: Present: normal inspection. Absent: tenderness, meningismus, lymphadenopathy Respiratory exam: Present: normal lung sounds bilaterally. Absent: respiratory distress, wheezes, rales, rhonchi, stridor Cardiovascular Exam: Present: normal rhythm, tachycardia, normal heart sounds. Absent: systolic murmur, diastolic murmur, rubs, gallop, clicks GI/Abdominal exam: Present: soft, normal bowel sounds. Absent: distended, tenderness, guarding, rebound, rigid Extremities exam: Present: normal inspection, full ROM, normal capillary refill. Absent: tenderness, pedal edema, joint swelling, calf tenderness Back exam: Present: normal inspection Neurological exam: Present: alert, oriented X3, CN II-XII intact Psychiatric exam: Present: normal affect, normal mood Skin exam: Present: warm, dry, intact, normal color. Absent: rash Course Vital Signs 06/16/19 06/16/19 06/16/19 18:26 19:12 20:10 Temperature 97.9 F Pulse Rate 109 H Respiratory 18 18 16 Rate Blood Pressure 165/122 132/83 125/81 O2 Sat by Pulse 96 97 97 Oximetry 06/16/19 21:10 Temperature Pulse Rate 87 Respiratory 17 Rate Blood Pressure 122/79 O2 Sat by Pulse 97 Oximetry EKG Findings - EKG Comments: EKG Findings:: EKG demonstrates a normal sinus rhythm with a ventricular rate of 91. TN interval 184. QRS 104. QTC 442. There are no acute ST segment elevations or depressions concerning for ischemic changes Medical Decision Making - Medical Decision Making Upon arrival, the patient was placed in room 27. He was hooked up to continuous pulse ox and cardiac monitoring. A 12-lead EKG was performed on the patient which demonstrated a sinus rhythm. Peripheral IV was established. The patient was given 2 L boluses of 0.9% normal saline. I did conduct laboratory studies. The patient was sent over for a chest x-ray due to his reported presyncopal sensation. Upon review of the results, the patient is reevaluated and states he feels much improved. I did discuss diagnosis, differential and treatment options. The patient is tolerating by mouth intake at this time. The patient will be discharged home and needs to follow-up with his primary care physician within 2-4 days. I did instruct him that he will have to have his kidney function and urine rechecked. I did inform him that he did have some red blood cells and white blood cells in his urine. The patient denies any concern for sexually transmitted infections. He denies any dysuria, hematuria or difficulty voiding. Return parameters were discussed. The patient was ambulated without difficulty. He was then discharged in stable condition - Differential Diagnosis presyncope, heat exhaustion, acute dehydration - Lab Data Result diagrams: 06/16/19 19:50 06/16/19 19:50 Lab Results 06/16/19 06/16/19 06/16/19 Range/Units 19:50 19:50 19:50 WBC 12.1 H (3.8-10.6) k/uL RBC 5.13 (4.30-5.90) m/uL Hgb 15.0 (13.0-17.5) gm/dL Hct 44.8 (39.0-53.0) % MCV 87.4 (80.0-100.0) fL MCH 29.2 (25.0-35.0) pg MCHC 33.4 (31.0-37.0) g/dL RDW 15.2 (11.5-15.5) % Plt Count 246 (150-450) k/uL Neutrophils % 71 % Lymphocytes % 19 % Monocytes % 6 % Eosinophils % 2 % Basophils % 1 % Neutrophils # 8.6 H (1.3-7.7) k/uL Lymphocytes # 2.2 (1.0-4.8) k/uL Monocytes # 0.7 (0-1.0) k/uL Eosinophils # 0.3 (0-0.7) k/uL Basophils # 0.1 (0-0.2) k/uL Sodium 144 (137-145) mmol/L Potassium 3.9 (3.5-5.1) mmol/L Chloride 108 H (98-107) mmol/L Carbon Dioxide 25 (22-30) mmol/L Anion Gap 11 mmol/L BUN 19 (9-20) mg/dL Creatinine 1.30 H (0.66-1.25) mg/dL Est GFR (CKD-EPI)AfAm 85 (>60 ml/min/1.73 sqM) Est GFR (CKD-EPI)NonAf 73 (>60 ml/min/1.73 sqM) Glucose 89 (74-99) mg/dL POC Glucose (mg/dL) (75-99) mg/dL POC Glu Firer Low Pressure ID Plasma Lactic Acid Santhosh 1.0 (0.7-2.0) mmol/L Calcium 9.8 (8.4-10.2) mg/dL Total Bilirubin 1.0 (0.2-1.3) mg/dL AST 36 (17-59) U/L ALT 38 (21-72) U/L Alkaline Phosphatase 75 (38-126) U/L Creatine Kinase 464 H (55-170) U/L Total Protein 7.6 (6.3-8.2) g/dL Albumin 4.6 (3.5-5.0) g/dL TSH 2.380 (0.465-4.680) mIU/L Urine Color Urine Appearance (Clear) Urine pH (5.0-8.0) Ur Specific [place] (1.001-1.035) Urine Protein (Negative) Urine Glucose (UA) (Negative) Urine Ketones (Negative) Urine Blood (Negative) Urine Nitrite (Negative) Urine Bilirubin (Negative) Urine Urobilinogen (<2.0) mg/dL Ur Leukocyte Esterase (Negative) Urine RBC (0-5) /hpf Urine WBC (0-5) /hpf Hyaline Casts (0-2) /lpf Urine Mucus (None) /hpf 06/16/19 06/16/19 Range/Units 20:14 20:33 WBC (3.8-10.6) k/uL RBC (4.30-5.90) m/uL Hgb (13.0-17.5) gm/dL Hct (39.0-53.0) % MCV (80.0-100.0) fL MCH (25.0-35.0) pg MCHC (31.0-37.0) g/dL RDW (11.5-15.5) % Plt Count (150-450) k/uL Neutrophils % % Lymphocytes % % Monocytes % % Eosinophils % % Basophils % % Neutrophils # (1.3-7.7) k/uL Lymphocytes # (1.0-4.8) k/uL Monocytes # (0-1.0) k/uL Eosinophils # (0-0.7) k/uL Basophils # (0-0.2) k/uL Sodium (137-145) mmol/L Potassium (3.5-5.1) mmol/L Chloride (98-107) mmol/L Carbon Dioxide (22-30) mmol/L Anion Gap mmol/L BUN (9-20) mg/dL Creatinine (0.66-1.25) mg/dL Est GFR (CKD-EPI)AfAm (>60 ml/min/1.73 sqM) Est GFR (CKD-EPI)NonAf (>60 ml/min/1.73 sqM) Glucose (74-99) mg/dL POC Glucose (mg/dL) 100 H (75-99) mg/dL POC Glu Firer Low Pressure Genny Tapia Plasma Lactic Acid Santhosh (0.7-2.0) mmol/L Calcium (8.4-10.2) mg/dL Total Bilirubin (0.2-1.3) mg/dL AST (17-59) U/L ALT (21-72) U/L Alkaline Phosphatase (38-126) U/L Creatine Kinase (55-170) U/L Total Protein (6.3-8.2) g/dL Albumin (3.5-5.0) g/dL TSH (0.465-4.680) mIU/L Urine Color Yellow Urine Appearance Cloudy (Clear) Urine pH 6.5 (5.0-8.0) Ur Specific [place] 1.034 (1.001-1.035) Urine Protein 2+ H (Negative) Urine Glucose (UA) Negative (Negative) Urine Ketones 1+ H (Negative) Urine Blood Negative (Negative) Urine Nitrite Negative (Negative) Urine Bilirubin Negative (Negative) Urine Urobilinogen 3.0 (<2.0) mg/dL Ur Leukocyte Esterase Trace H (Negative) Urine RBC 15 H (0-5) /hpf Urine WBC 13 H (0-5) /hpf Hyaline Casts 101 H (0-2) /lpf Urine Mucus Many H (None) /hpf Disposition Clinical Impression: Dehydration, Heat exhaustion, Pre-syncope Disposition: HOME SELF-CARE Condition: Stable Instructions (If sedation given, give patient instructions): Dehydration (ED) Additional Instructions: Please follow-up with your doctor within 2-4 days. You need to have your kidney function and urinalysis rechecked. Return to the emergency room and should you have any new or worsening symptoms Is patient prescribed a controlled substance at d/c from ED?: No Referrals: [facility] [Primary Care Provider] - 1-2 days Time of Disposition: 21:31
[2019-06-16 21:37] VITALS: BP 122/79; PULSE 87; RESP 17
== END 2019-06-16 21:46 | disposition home or self-care (01) ==
LOC: EC 18:19
DX: E86.0 Dehydration (principal); T67.5XXA Heat exhaustion, unspecified, initial encounter; R55 Syncope and collapse; F17.200 Nicotine dependence, unspecified, uncomplicated
CPT/HCPCS: 36415; 71046; 80053; 81001; 82550; 83605; 84443; 85025; 93005; 96360; 99284

== ENCOUNTER 2020-02-05 19:20 | Emergency (ER) | payer OTHER ==
[2020-02-05 19:28] VITALS: RESP 16; TEMP 97
--- NOTE | 2020-02-05 20:08 | CT ---
EXAMINATION TYPE: CT brain cspine wo con DATE OF EXAM: 02/05/2020 COMPARISON: None HISTORY: Syncope and fall. Head and neck pain. CT DLP: 1833.8 mGycm Automated exposure control for dose reduction was used. Ventricles and sulci appear normal. There is no mass effect nor midline shift. There is no sign of in tracranial hemorrhage. The calvarium is intact. There is mild straightening of the cervical spine. Disc spaces are normal. Posterior elements are int act. Facet joints are intact. The skull base is intact. IMPRESSION: Negative CT scan of the brain. Negative CT scan cervical spine.
--- NOTE | 2020-02-05 20:14 | ED ---
General Adult HPI - General Chief complaint: Fall Stated complaint: Fall Time Seen by Provider: 02/05/20 19:24 Source: patient, EMS, RN notes reviewed Mode of arrival: EMS - History of Present Illness Initial comments: 29-year-old male with a past medical history of kidney stones, pleurisy presents to the emergency department for a chief complaint of syncopal episode. Patient states that he tried be "1 Chip Challenge" where you eat a very spicy chip. Patient states he started to get heartburn and diarrhea. Patient states that he was having a bowel movement and he started to get lightheaded and his vision went black. States he went to stand up to call for help and passed out. Patient did hit the left back side of his head. He denies any neck pain. Patient states he is feeling back to his baseline however he does have slight headache. No blood thinners on board.Patient has no other complaints at this time including shortness of breath, chest pain, abdominal pain, nausea or vomiting, headache, or visual changes. - Related Data Home Medications Medication Instructions Recorded Confirmed No Known Home Medications 06/16/19 06/16/19 Allergies Allergy/AdvReac Type Severity Reaction Status Date / Time No Known Allergies Allergy Verified 06/16/19 18:49 Review of Systems ROS Statement: Those systems with pertinent positive or pertinent negative responses have been documented in the HPI. ROS Other: All systems not noted in ROS Statement are negative. Past Medical History Additional Past Medical History / Comment(s): kidney stones, pleurisy History of Any Multi-Drug Resistant Organisms: None Reported Past Surgical History: No Surgical Hx Reported Past Psychological History: Bipolar, Depression Smoking Status: Current every day smoker Past Alcohol Use History: Occasional Past Drug Use History: Marijuana General Exam General appearance: alert, in no apparent distress Head exam: Present: atraumatic, normocephalic, normal inspection Eye exam: Present: normal appearance, PERRL, EOMI. Absent: scleral icterus, conjunctival injection, periorbital swelling, periorbital tenderness, other (Negative raccoon sign) ENT exam: Present: normal exam, mucous membranes moist, TM's normal bilaterally (No hemotympanum). Absent: other (Negative Prado sign) Neck exam: Present: normal inspection, full ROM. Absent: tenderness (No cervical spine tenderness), meningismus, lymphadenopathy Respiratory exam: Present: normal lung sounds bilaterally. Absent: respiratory distress, wheezes, rales, rhonchi, stridor Cardiovascular Exam: Present: regular rate, normal rhythm, normal heart sounds. Absent: bradycardia, tachycardia, irregular rhythm GI/Abdominal exam: Present: soft, normal bowel sounds. Absent: distended, tenderness, guarding, rebound, rigid Neurological exam: Present: alert, oriented X3, CN II-XII intact, other (GCS 15) Course Vital Signs 02/05/20 19:22 Temperature 97 F L Pulse Rate 101 H Respiratory 16 Rate Blood Pressure 136/81 O2 Sat by Pulse 96 Oximetry EKG Findings - EKG Comments: EKG Findings:: Normal sinus rhythm, ventricular rate 99, VA interval 172, QTC 428 Medical Decision Making - Medical Decision Making Patient initially presented in c-collar. This was cleared using Nexus criteria. Patient does have a small hematoma on the left posterior scalp. No other physical exam findings evident. Patient is well-appearing. EKG shows a normal sinus rhythm, unremarkable. CT of the brain and C-spine are negative. Patient reevaluated. Feeling well at this time. He likely had a vasovagal episode. He will return if he has any worsening symptoms. Disposition Clinical Impression: Head injury, Vasovagal syncope Disposition: HOME SELF-CARE Condition: Good Instructions (If sedation given, give patient instructions): Syncope (ED), Head Injury (ED) Additional Instructions: Please follow-up with primary care in 1-2 days. Return to the emergency department if you have any worsening symptoms. Is patient prescribed a controlled substance at d/c from ED?: No Referrals: [facility] [Primary Care Provider] - 1-2 days Time of Disposition: 20:16
[2020-02-05 20:29] VITALS: BP 116/91; PULSE 93
== END 2020-02-05 20:33 | disposition home or self-care (01) ==
LOC: EC 19:20
DX: S00.03XA Contusion of scalp, initial encounter (principal); R55 Syncope and collapse; F17.200 Nicotine dependence, unspecified, uncomplicated; W01.10XA Fall on same level from slipping, tripping and stumbling with subsequent striking against unspecified object, initial encounter; Y93.89 Activity, other specified; Y92.002 Bathroom of unspecified non-institutional (private) residence as the place of occurrence of the external cause
CPT/HCPCS: 70450; 72125; 93005; 99284

== ENCOUNTER 2020-04-15 19:37 | Emergency (ER) | payer OTHER ==
[2020-04-15] MEDS ORDERED: KETOROLAC 30 MG/ML 1 ML VIAL IVP STA (20:14)
[2020-04-15] MEDS ORDERED: SODIUM CHLORIDE 0.9% 1,000 ML IV STA (20:14)
--- NOTE | 2020-04-15 20:18 | ED ---
Abdominal Pain HPI - General Source: patient Mode of arrival: ambulatory Limitations: no limitations <Rosa Maria Sosa - Last Filed: 04/16/20 00:32> <Porsche Monet - Last Filed: 04/19/20 11:53> - General Chief Complaint: Abdominal Pain Stated Complaint: Abdominal pain Time Seen by Provider: 04/15/20 19:58 - History of Present Illness Initial Comments: Patient is a 29-year-old male presenting to the emergency Department with complaints of abdominal pain has been increasing over one week. Patient states he tried to take Pepcid a couple days without relief. Patient states he does have history kidney stones. Patient states the pain is epigastric as well as on his left side. Describes it as pressure with intermittent bouts of sharpness. He denies any fever, chills. He states he has been having nausea and vomiting for the past few days in the morning. He states he had regular bowel movement this morning. He states he was having a hard time urinating today, no hematuria. He denies history of abdominal surgeries. He denies any chest pain. He has no further complaints. (Rosa Maria Sosa) - Related Data Home Medications Medication Instructions Recorded Confirmed Diclofenac Sodium [Voltaren] 75 mg PO ONCE 04/17/20 04/17/20 Polyethylene Glycol 3350 [Miralax] 17 gm PO DAILY PRN 04/17/20 04/17/20 Simethicone [Gas-X] 125 mg PO ACHS PRN 04/17/20 04/17/20 Allergies Allergy/AdvReac Type Severity Reaction Status Date / Time No Known Allergies Allergy Verified 04/17/20 11:35 Review of Systems ROS Other: All systems not noted in ROS Statement are negative. <Rosa Maria Sosa - Last Filed: 04/16/20 00:32> ROS Other: All systems not noted in ROS Statement are negative. <Porsche Monet - Last Filed: 04/19/20 11:53> ROS Statement: Those systems with pertinent positive or pertinent negative responses have been documented in the HPI. Past Medical History Additional Past Medical History / Comment(s): kidney stones, pleurisy History of Any Multi-Drug Resistant Organisms: None Reported Past Surgical History: No Surgical Hx Reported Past Psychological History: Bipolar, Depression Smoking Status: Current every day smoker Past Alcohol Use History: Occasional Past Drug Use History: Marijuana <Rosa Maria Sosa - Last Filed: 04/16/20 00:32> General Exam Limitations: no limitations <Maranda Sosanifer Stanley - Last Filed: 04/16/20 00:32> - General Exam Comments Initial Comments: GENERAL: Well-appearing, well-nourished and in no acute distress, but appears uncomfortable. HEAD: Atraumatic, normocephalic. EYES: Pupils equal round and reactive to light, extraocular movements intact, sclera anicteric, conjunctiva are normal. ENT: TMs normal, nares patent, oropharynx clear without exudates. Moist mucous membranes. NECK: Normal range of motion, supple without lymphadenopathy or JVD. LUNGS: Breath sounds clear to auscultation bilaterally and equal. No wheezes rales or rhonchi. HEART: Regular rate and rhythm without murmurs, rubs or gallops. ABDOMEN: Tender to palpation epigastric, left upper and left lower quadrant. Soft, normoactive bowel sounds. No rebound. No masses appreciated. : Deferred EXTREMITIES: Normal range of motion, no pitting or edema. No clubbing or cyanosis. NEUROLOGICAL: Cranial nerves II through XII grossly intact. Normal speech, normal gait. PSYCH: Normal mood, normal affect. SKIN: Warm, Dry, normal turgor, no rashes or lesions noted. (Rosa Maria Sosa) Course Vital Signs 04/15/20 04/15/20 19:50 22:40 Temperature 97.9 F 97.7 F Pulse Rate 100 81 Respiratory 20 16 Rate Blood Pressure 134/68 121/80 O2 Sat by Pulse 98 95 Oximetry Medical Decision Making - Lab Data Result diagrams: 04/15/20 20:41 04/15/20 20:41 <Rosa Maria Sosa - Last Filed: 04/16/20 00:32> - Lab Data Result diagrams: 04/15/20 20:41 04/15/20 20:41 <Porsche Monet - Last Filed: 04/19/20 11:53> - Medical Decision Making Patient 29-year-old male presenting with abdominal pain has been intermittent and increasing over the past week. Positive nausea and vomiting. Vitals are stable, afebrile. Lab work is unremarkable, lactic acid is normal. Lipase is normal. Urine shows no signs of infection. Computed tomography scan of the abdomen shows no acute abnormalities. Patient was given Toradol and fluids. He reports improvement in his symptoms. I discussed with patient his symptoms may be due to constipation and gas. I recommended MiraLAX as well as Gas-X for his symptoms. Patient is agreement with this plan of care. I will give patient GI consult. Return parameters were discussed with the patient and he verbalized understanding. Case discussed with Dr. Monet. (Rosa Maria Sosa) I was available for consultation in the emergency department. The history and physical exam were done by the midlevel provider. I was consulted for this patients care. I reviewed the case with the midlevel provider and based on their presentation of the patient, I agree with the assessment, medical decision making and plan of care as documented. Chart was dictated using [employer] dictation software. Attempts were made to correct any dictation errors however some typographical errors may persist. Patient was seen during a national state of emergency due to the Covid-19 pandemic. (Porsche Monet) - Lab Data Lab Results 04/15/20 04/15/20 04/15/20 Range/Units 20:41 20:41 20:41 WBC 10.2 (3.8-10.6) k/uL RBC 5.00 (4.30-5.90) m/uL Hgb 15.2 (13.0-17.5) gm/dL Hct 43.6 (39.0-53.0) % MCV 87.1 (80.0-100.0) fL MCH 30.3 (25.0-35.0) pg MCHC 34.8 (31.0-37.0) g/dL RDW 13.3 (11.5-15.5) % Plt Count 249 (150-450) k/uL Neutrophils % 63 % Lymphocytes % 26 % Monocytes % 5 % Eosinophils % 4 % Basophils % 1 % Neutrophils # 6.4 (1.3-7.7) k/uL Lymphocytes # 2.6 (1.0-4.8) k/uL Monocytes # 0.5 (0-1.0) k/uL Eosinophils # 0.5 (0-0.7) k/uL Basophils # 0.1 (0-0.2) k/uL PT 10.3 (9.0-12.0) sec INR 1.0 (<1.2) APTT 24.0 (22.0-30.0) sec Sodium 137 (137-145) mmol/L Potassium 4.4 (3.5-5.1) mmol/L Chloride 104 (98-107) mmol/L Carbon Dioxide 25 (22-30) mmol/L Anion Gap 8 mmol/L BUN 17 (9-20) mg/dL Creatinine 0.82 (0.66-1.25) mg/dL Est GFR (CKD-EPI)AfAm >90 (>60 ml/min/1.73 sqM) Est GFR (CKD-EPI)NonAf >90 (>60 ml/min/1.73 sqM) Glucose 112 H (74-99) mg/dL Plasma Lactic Acid Santhosh (0.7-2.0) mmol/L Calcium 9.6 (8.4-10.2) mg/dL Total Bilirubin 0.5 (0.2-1.3) mg/dL AST 37 (17-59) U/L ALT 50 H (4-49) U/L Alkaline Phosphatase 68 (38-126) U/L Total Protein 7.6 (6.3-8.2) g/dL Albumin 4.5 (3.5-5.0) g/dL Amylase 73 (30-110) U/L Lipase 135 (23-300) U/L Urine Color Urine Appearance (Clear) Urine pH (5.0-8.0) Ur Specific [place] (1.001-1.035) Urine Protein (Negative) Urine Glucose (UA) (Negative) Urine Ketones (Negative) Urine Blood (Negative) Urine Nitrite (Negative) Urine Bilirubin (Negative) Urine Urobilinogen (<2.0) mg/dL Ur Leukocyte Esterase (Negative) 04/15/20 04/15/20 Range/Units 20:41 21:15 WBC (3.8-10.6) k/uL RBC (4.30-5.90) m/uL Hgb (13.0-17.5) gm/dL Hct (39.0-53.0) % MCV (80.0-100.0) fL MCH (25.0-35.0) pg MCHC (31.0-37.0) g/dL RDW (11.5-15.5) % Plt Count (150-450) k/uL Neutrophils % % Lymphocytes % % Monocytes % % Eosinophils % % Basophils % % Neutrophils # (1.3-7.7) k/uL Lymphocytes # (1.0-4.8) k/uL Monocytes # (0-1.0) k/uL Eosinophils # (0-0.7) k/uL Basophils # (0-0.2) k/uL PT (9.0-12.0) sec INR (<1.2) APTT (22.0-30.0) sec Sodium (137-145) mmol/L Potassium (3.5-5.1) mmol/L Chloride (98-107) mmol/L Carbon Dioxide (22-30) mmol/L Anion Gap mmol/L BUN (9-20) mg/dL Creatinine (0.66-1.25) mg/dL Est GFR (CKD-EPI)AfAm (>60 ml/min/1.73 sqM) Est GFR (CKD-EPI)NonAf (>60 ml/min/1.73 sqM) Glucose (74-99) mg/dL Plasma Lactic Acid Santhosh 1.2 (0.7-2.0) mmol/L Calcium (8.4-10.2) mg/dL Total Bilirubin (0.2-1.3) mg/dL AST (17-59) U/L ALT (4-49) U/L Alkaline Phosphatase (38-126) U/L Total Protein (6.3-8.2) g/dL Albumin (3.5-5.0) g/dL Amylase (30-110) U/L Lipase (23-300) U/L Urine Color Yellow Urine Appearance Clear (Clear) Urine pH 6.5 (5.0-8.0) Ur Specific [place] 1.043 H (1.001-1.035) Urine Protein Negative (Negative) Urine Glucose (UA) Negative (Negative) Urine Ketones Negative (Negative) Urine Blood Negative (Negative) Urine Nitrite Negative (Negative) Urine Bilirubin Negative (Negative) Urine Urobilinogen 2.0 (<2.0) mg/dL Ur Leukocyte Esterase Negative (Negative) Disposition Is patient prescribed a controlled substance at d/c from ED?: No <Rosa Maria Sosa - Last Filed: 05/31/20 00:32> <Porsche Monet - Last Filed: 04/19/20 11:53> Clinical Impression: Abdominal pain, Constipation Disposition: HOME SELF-CARE Condition: Stable Instructions (If sedation given, give patient instructions): Abdominal Pain (ED) Additional Instructions: Please return to the Emergency Department if symptoms worsen or any other concerns. Trial of Miralex for constipation as well as Gas-X Follow up with GI as discussed. Referrals: [facility] [Primary Care Provider] - 1-2 days Burt Dennis MD [STAFF PHYSICIAN] - 1-2 days
[2020-04-15 21:02] LABS: Basophils # (A) 0.1 k/uL (0-0.2); Basophils % (A) 1 %; Eosinophils # (A) 0.5 k/uL (0-0.7); Eosinophils % (A) 4 %; HCT 43.6 % (39.0-53.0); HGB 15.2 gm/dL (13.0-17.5); Lymphocytes # (A) 2.6 k/uL (1.0-4.8); Lymphocytes % (A) 26 %; MCH 30.3 pg (25.0-35.0); MCHC 34.8 g/dL (31.0-37.0); MCV 87.1 fL (80.0-100.0); Mean Platelet Volume 8.3; Monocytes # (A) 0.5 k/uL (0-1.0); Monocytes % (A) 5 %; Neutrophils # (A) 6.4 k/uL (1.3-7.7); Neutrophils % (A) 63 %; Platelet Count 249 k/uL (150-450); RDW 13.3 % (11.5-15.5); WBC 10.2 k/uL (3.8-10.6)
[2020-04-15 21:09] LABS: Prothrombin Time 10.3 sec (9.0-12.0)
[2020-04-15 21:14] LABS: ALT 50 U/L (4-49); AST 37 U/L (17-59); African American GFR (CKD) >90 (>60 ml/min/1.73 sqM); Albumin 4.5 g/dL (3.5-5.0); Alkaline Phosphatase 68 U/L (38-126); Amylase 73 U/L (30-110); Anion Gap 8 mmol/L; Blood Urea Nitrogen 17 mg/dL (9-20); Calcium 9.6 mg/dL (8.4-10.2); Carbon Dioxide 25 mmol/L (22-30); Chloride 104 mmol/L (98-107); Glucose 112 mg/dL (74-99); Non-African American GFR(CKD) >90 (>60 ml/min/1.73 sqM); Potassium 4.4 mmol/L (3.5-5.1); Sodium 137 mmol/L (137-145); Total Bilirubin 0.5 mg/dL (0.2-1.3); Total Protein 7.6 g/dL (6.3-8.2)
--- NOTE | 2020-04-15 21:31 | CT ---
EXAMINATION TYPE: CT abdomen pelvis w con DATE OF EXAM: 04/15/2020 COMPARISON: 02/06/2017 HISTORY: Left upper quadrant pain. CT DLP: 2060.1 mGycm Automated exposure control for dose reduction was used. CONTRAST: Performed with IV Contrast, patient injected with 100 mL of Isovue 300. Lung bases are clear. There is no pleural effusion. Heart size is normal. Liver spleen pancreas gallbladder appear normal. Bile ducts are not dilated. Stomach appears normal. There is no adrenal mass. Kidneys show satisfactory contrast opacification. There is no hydronephrosi s. Delayed images appear to show normal symmetric renal excretion. Ureters are not dilated. There is no retroperitoneal adenopathy. Appendix appears normal. Bladder distends smoothly. There is no inguin al hernia. There is no free fluid in the pelvis. There is no sign of pelvic mass. There is no mesenteric edema. There is no ascites or free air. There is no sign of a bowel obstruction. There is small umbilical hernia that contains fat. Lumbar vertebra have fairly normal spacing and alignment. Bony pelvis is intact. There is no compress ion fracture. Hip joint spaces are fairly normal. IMPRESSION: Negative CT scan of the abdomen and pelvis. Normal appendix. There is clearing of the minimal right s daniel hydronephrosis compared to old exam. I do not see a cause for left upper quadrant pain.
[2020-04-15 21:57] LABS: Appearance,Urine Clear (Clear); Bilirubin,Urine Negative (Negative); Blood,Urine Negative (Negative); Color,Urine Yellow; Glucose,Urine (UA) Negative (Negative); Ketones,Urine Negative (Negative); Leukocyte Esterase,Urine Negative (Negative); Nitrite,Urine Negative (Negative); PH, Urine 6.5 (5.0-8.0); Protein,Urine Negative (Negative); Specific Gravity,Urine 1.043 (1.001-1.035)
[2020-04-15 22:41] VITALS: BP 121/80; PULSE 81; RESP 16; TEMP 97.7
== END 2020-04-15 22:40 | disposition home or self-care (01) ==
LOC: EC 19:37
DX: K59.00 Constipation, unspecified (principal); R11.2 Nausea with vomiting, unspecified; F17.200 Nicotine dependence, unspecified, uncomplicated; Z79.899 Other long term (current) drug therapy; Z87.442 Personal history of urinary calculi
CPT/HCPCS: 36415; 80053; 82150; 83605; 83690; 85025; 85610; 85730; 81003; 74177; 99284; 96374; 96361; J1885; Q9967

== ENCOUNTER 2020-04-17 07:46 | Emergency (ER) | payer OTHER ==
[2020-04-17 07:58] VITALS: TEMP 98
[2020-04-17] MEDS ORDERED: ASPIRIN 81 MG PO STA (07:59)
[2020-04-17] MEDS ORDERED: LORazepam 1 MG TAB PO STA (08:00)
[2020-04-17] MEDS ORDERED: SODIUM CHLORIDE 0.9% 1,000 ML IV ONE (08:00)
[2020-04-17 08:12] LABS: Basophils # (A) 0.1 k/uL (0-0.2); Basophils % (A) 1 %; Eosinophils # (A) 0.4 k/uL (0-0.7); Eosinophils % (A) 5 %; HCT 45.7 % (39.0-53.0); HGB 15.2 gm/dL (13.0-17.5); Lymphocytes # (A) 1.7 k/uL (1.0-4.8); Lymphocytes % (A) 24 %; MCH 28.7 pg (25.0-35.0); MCHC 33.2 g/dL (31.0-37.0); MCV 86.5 fL (80.0-100.0); Mean Platelet Volume 8.2; Monocytes # (A) 0.4 k/uL (0-1.0); Monocytes % (A) 6 %; Neutrophils # (A) 4.5 k/uL (1.3-7.7); Neutrophils % (A) 63 %; Platelet Count 225 k/uL (150-450); RBC 5.29 m/uL (4.30-5.90); WBC 7.1 k/uL (3.8-10.6)
[2020-04-17 08:20] LABS: INR 0.9 (<1.2); Partial Thromboplastin Time 24.1 sec (22.0-30.0); Prothrombin Time 9.9 sec (9.0-12.0)
[2020-04-17 08:27] LABS: ALT 50 U/L (4-49); AST 32 U/L (17-59); African American GFR (CKD) >90 (>60 ml/min/1.73 sqM); Albumin 4.6 g/dL (3.5-5.0); Alkaline Phosphatase 75 U/L (38-126); Anion Gap 11 mmol/L; Blood Urea Nitrogen 15 mg/dL (9-20); Carbon Dioxide 23 mmol/L (22-30); Chloride 106 mmol/L (98-107); Glucose 114 mg/dL (74-99); Magnesium 1.9 mg/dL (1.6-2.3); Non-African American GFR(CKD) >90 (>60 ml/min/1.73 sqM); Potassium 4.1 mmol/L (3.5-5.1); Sodium 140 mmol/L (137-145); Total Bilirubin 0.5 mg/dL (0.2-1.3); Total Protein 7.8 g/dL (6.3-8.2)
[2020-04-17 08:34] VITALS: RESP 32
--- NOTE | 2020-04-17 08:55 | ED ---
General Adult HPI - General Chief complaint: Chest Pain Stated complaint: anxiety Time Seen by Provider: 04/17/20 07:47 Source: patient, RN notes reviewed, old records reviewed Mode of arrival: EMS Limitations: no limitations - History of Present Illness Initial comments: 29-year-old male patient presents to ED for chief complaint of chest pain radiating to his back. Patient parents that he woke up approximately 1.5 hours prior to presentation and began having pain which she describes as substernal pressure and then also having pain which she described as going down his spine from the thoracic to lumbar spine region. Patient denies any recent falls or trauma. Patient denies any prior cardiac history. Denies any shortness of breath. Denies using methamphetamine or cocaine. Patient also states having some pain in his right flank region as well. Denies any other complaints at this time. Systemic: Pt denies fatigue, fever/chills, rash. Pt denies weakness, night sweats, weight loss. Neuro: Pt denies headache, visual disturbances, syncope or pre-syncope. HEENT: Pt denies ocular discharge or irritation, otalgia, rhinorrhea, pharyngitis or notable lymphadenopathy. Cardiopulmonary: Pt denies SOB, heart palpitations, dyspnea on exertion. Abdominal/GI: Pt denies n/v/d. : Pt denies dysuria, burning w/ urination, frequency/urgency. Denies new onset urinary or bowel incontinence. MSK: Pt denies myalgia, loss of strength or function in extremities. Neuro: Pt denies new onset weakness, paresthesias. - Related Data Home Medications Medication Instructions Recorded Confirmed Diclofenac Sodium [Voltaren] 75 mg PO ONCE 04/17/20 04/17/20 Polyethylene Glycol 3350 [Miralax] 17 gm PO DAILY PRN 04/17/20 04/17/20 Simethicone [Gas-X] 125 mg PO ACHS PRN 04/17/20 04/17/20 Allergies Allergy/AdvReac Type Severity Reaction Status Date / Time No Known Allergies Allergy Verified 04/17/20 11:35 Review of Systems ROS Statement: Those systems with pertinent positive or pertinent negative responses have been documented in the HPI. ROS Other: All systems not noted in ROS Statement are negative. Past Medical History Additional Past Medical History / Comment(s): kidney stones, pleurisy History of Any Multi-Drug Resistant Organisms: None Reported Past Surgical History: No Surgical Hx Reported Past Psychological History: Bipolar, Depression Smoking Status: Current every day smoker Past Alcohol Use History: Occasional Past Drug Use History: Marijuana General Exam - General Exam Comments Initial Comments: Constitutional: NAD, AOX3, Pt has pleasant affect. HEENT: NC/AT, trachea midline, neck supple, no lymphadenopathy. Posterior pharynx non erythematous, without exudates. External ears appear normal, without discharge. Mucous membranes moist. Eyes PERRLA, EOM intact. There is no scleral icterus. No pallor noted. Cardiopulmonary: RRR, no murmurs, rubs or gallops, no JVD noted. Lungs CTAB in anterior and posterior zaman. No peripheral edema. Abdominal exam: Abdomen soft and non-distended. Abdomen non-tender to palpation in all 4 quadrants. Bowel sounds active in LLQ. No hepatosplenomegaly. No ecchy mosis. Right flank mild tenderness to palpation. Neuro: CN II-XII grossly intact. No nuchal rigidity. No raccon eyes, no abraham sign, no hemotympanum. No cervical spinal tenderness. MSK: No posterior calf tenderness bilaterally, homans sign negative bilaterally. Posterior tibialis and radial pulse +2 bilaterally. Sensation intact in upper and lower extremities. Full active ROM in upper and lower extremities, 5/5 stregnth. Limitations: no limitations Course Vital Signs 04/17/20 04/17/20 04/17/20 07:48 08:00 08:24 Temperature 98 F Pulse Rate 77 67 Pulse Rate [ 75 Hand Spring Repairer ] Respiratory 18 13 32 H Rate Blood Pressure 140/78 140/78 O2 Sat by Pulse 99 100 Oximetry 04/17/20 08:30 Temperature Pulse Rate Pulse Rate [ Hand Spring Repairer ] Respiratory Rate Blood Pressure 132/86 O2 Sat by Pulse Oximetry Medical Decision Making - Medical Decision Making 29-year-old male patient presents to ED for chief complaint of chest pain radiating to his back. Patient parents that he woke up approximately 1.5 hours prior to presentation and began having pain which she describes as substernal pressure and then also having pain which she described as going down his spine from the thoracic to lumbar spine region. Patient denies any recent falls or trauma. Patient denies any prior cardiac history. Denies any shortness of breath. Denies using methamphetamine or cocaine. Patient also states having some pain in his right flank region as well. Denies any other complaints at this time. Patient will signs are stable, afebrile. Physical exam did display some mild tenderness in the right flank region. Lymph investigations are noncompressive. Troponin is negative. CT aorta with contrast was performed, no aortic aneurysm dissection cannot exclude mild uncomplicated colitis. CT findings consistent with underlying pulmonary hypertension. Patient had an additional episode of chest pain while in emergency Department this was transient nature and resolved. Repeat EKG is performed and is nonischemic. Patient admitted for serial troponins and cardiology evaluation. Case discussed with Dr. Wheeler. Accepting physician Dr. Abdi. - Lab Data Result diagrams: 04/17/20 08:05 04/17/20 08:05 Lab Results 04/17/20 04/17/20 04/17/20 Range/Units 08:05 08:05 08:05 WBC 7.1 (3.8-10.6) k/uL RBC 5.29 (4.30-5.90) m/uL Hgb 15.2 (13.0-17.5) gm/dL Hct 45.7 (39.0-53.0) % MCV 86.5 (80.0-100.0) fL MCH 28.7 (25.0-35.0) pg MCHC 33.2 (31.0-37.0) g/dL RDW 13.0 (11.5-15.5) % Plt Count 225 (150-450) k/uL Neutrophils % 63 % Lymphocytes % 24 % Monocytes % 6 % Eosinophils % 5 % Basophils % 1 % Neutrophils # 4.5 (1.3-7.7) k/uL Lymphocytes # 1.7 (1.0-4.8) k/uL Monocytes # 0.4 (0-1.0) k/uL Eosinophils # 0.4 (0-0.7) k/uL Basophils # 0.1 (0-0.2) k/uL PT 9.9 (9.0-12.0) sec INR 0.9 (<1.2) APTT 24.1 (22.0-30.0) sec Sodium 140 (137-145) mmol/L Potassium 4.1 (3.5-5.1) mmol/L Chloride 106 (98-107) mmol/L Carbon Dioxide 23 (22-30) mmol/L Anion Gap 11 mmol/L BUN 15 (9-20) mg/dL Creatinine 0.78 (0.66-1.25) mg/dL Est GFR (CKD-EPI)AfAm >90 (>60 ml/min/1.73 sqM) Est GFR (CKD-EPI)NonAf >90 (>60 ml/min/1.73 sqM) Glucose 114 H (74-99) mg/dL Calcium 10.0 (8.4-10.2) mg/dL Magnesium 1.9 (1.6-2.3) mg/dL Total Bilirubin 0.5 (0.2-1.3) mg/dL AST 32 (17-59) U/L ALT 50 H (4-49) U/L Alkaline Phosphatase 75 (38-126) U/L Troponin I (0.000-0.034) ng/mL Total Protein 7.8 (6.3-8.2) g/dL Albumin 4.6 (3.5-5.0) g/dL Urine Color Urine Appearance (Clear) Urine pH (5.0-8.0) Ur Specific [place] (1.001-1.035) Urine Protein (Negative) Urine Glucose (UA) (Negative) Urine Ketones (Negative) Urine Blood (Negative) Urine Nitrite (Negative) Urine Bilirubin (Negative) Urine Urobilinogen (<2.0) mg/dL Ur Leukocyte Esterase (Negative) Urine Opiates Screen (NotDetected) Ur Oxycodone Screen (NotDetected) Urine Methadone Screen (NotDetected) Ur Propoxyphene Screen (NotDetected) Ur Barbiturates Screen (NotDetected) U Tricyclic Antidepress (NotDetected) Ur Phencyclidine Scrn (NotDetected) Ur Amphetamines Screen (NotDetected) U Methamphetamines Scrn (NotDetected) U Benzodiazepines Scrn (NotDetected) Urine Cocaine Screen (NotDetected) U Marijuana (THC) Screen (NotDetected) 04/17/20 04/17/20 Range/Units 08:05 09:02 WBC (3.8-10.6) k/uL RBC (4.30-5.90) m/uL Hgb (13.0-17.5) gm/dL Hct (39.0-53.0) % MCV (80.0-100.0) fL MCH (25.0-35.0) pg MCHC (31.0-37.0) g/dL RDW (11.5-15.5) % Plt Count (150-450) k/uL Neutrophils % % Lymphocytes % % Monocytes % % Eosinophils % % Basophils % % Neutrophils # (1.3-7.7) k/uL Lymphocytes # (1.0-4.8) k/uL Monocytes # (0-1.0) k/uL Eosinophils # (0-0.7) k/uL Basophils # (0-0.2) k/uL PT (9.0-12.0) sec INR (<1.2) APTT (22.0-30.0) sec Sodium (137-145) mmol/L Potassium (3.5-5.1) mmol/L Chloride (98-107) mmol/L Carbon Dioxide (22-30) mmol/L Anion Gap mmol/L BUN (9-20) mg/dL Creatinine (0.66-1.25) mg/dL Est GFR (CKD-EPI)AfAm (>60 ml/min/1.73 sqM) Est GFR (CKD-EPI)NonAf (>60 ml/min/1.73 sqM) Glucose (74-99) mg/dL Calcium (8.4-10.2) mg/dL Magnesium (1.6-2.3) mg/dL Total Bilirubin (0.2-1.3) mg/dL AST (17-59) U/L ALT (4-49) U/L Alkaline Phosphatase (38-126) U/L Troponin I <0.012 (0.000-0.034) ng/mL Total Protein (6.3-8.2) g/dL Albumin (3.5-5.0) g/dL Urine Color Light Yellow Urine Appearance Clear (Clear) Urine pH 8.0 (5.0-8.0) Ur Specific [place] 1.033 (1.001-1.035) Urine Protein Negative (Negative) Urine Glucose (UA) Negative (Negative) Urine Ketones Negative (Negative) Urine Blood Negative (Negative) Urine Nitrite Negative (Negative) Urine Bilirubin Negative (Negative) Urine Urobilinogen <2.0 (<2.0) mg/dL Ur Leukocyte Esterase Negative (Negative) Urine Opiates Screen Not Detected (NotDetected) Ur Oxycodone Screen Not Detected (NotDetected) Urine Methadone Screen Not Detected (NotDetected) Ur Propoxyphene Screen Not Detected (NotDetected) Ur Barbiturates Screen Not Detected (NotDetected) U Tricyclic Antidepress Not Detected (NotDetected) Ur Phencyclidine Scrn Not Detected (NotDetected) Ur Amphetamines Screen Not Detected (NotDetected) U Methamphetamines Scrn Not Detected (NotDetected) U Benzodiazepines Scrn Not Detected (NotDetected) Urine Cocaine Screen Not Detected (NotDetected) U Marijuana (THC) Screen Detected H (NotDetected) - EKG Data -: EKG Interpreted by Me (and Dr. Wheeler ) EKG Comments: 1) ventricular rate 68,. Full 180, QRS 14, QT/QTC 376/399. Normal chance rhythm, incomplete right bundle-branch block. EKG. No concern for acute ischemia. 2) ventricular rate 74,. Full 174, QRS 98, QT/QTC 372/412. Normal sensory and sensory. Normal EKG. No concern for acute ischemia. Disposition Clinical Impression: Flank pain, Chest pain Disposition: ADMITTED IP TO THIS HOSP Condition: Serious Is patient prescribed a controlled substance at d/c from ED?: No Referrals: [facility] [Primary Care Provider] - 1-2 days
[2020-04-17 09:10] VITALS: BP 132/86; PULSE 67
[2020-04-17 09:18] LABS: Appearance,Urine Clear (Clear); Bilirubin,Urine Negative (Negative); Blood,Urine Negative (Negative); Color,Urine Light Yellow; Glucose,Urine (UA) Negative (Negative); Ketones,Urine Negative (Negative); Leukocyte Esterase,Urine Negative (Negative); Nitrite,Urine Negative (Negative); Protein,Urine Negative (Negative); Specific Gravity,Urine 1.033 (1.001-1.035); Urobilinogen,Urine <2.0 mg/dL (<2.0)
[2020-04-17 09:31] LABS: Amphetamine Screen,Urine Not Detected (NotDetected); Barbiturate Screen,Urine Not Detected (NotDetected); Benzodiazepines Screen,Urine Not Detected (NotDetected); Cocaine Screen,Urine Not Detected (NotDetected); Methadone Screen, Urine Not Detected (NotDetected); Opiate Screen,Urine Not Detected (NotDetected); Oxycodone Screen, Urine Not Detected (NotDetected); Phencyclidine Screen,Urine Not Detected (NotDetected); Tricyclic Antidepressant,Urine Not Detected (NotDetected); Urn Cannabinoid Scrn Detected (NotDetected)
--- NOTE | 2020-04-17 10:14 | CT ---
EXAMINATION TYPE: CT angio thor/abd pel aorta DATE OF EXAM: 04/17/2020 COMPARISON: CT abdomen and pelvis April 15, 2020. HISTORY: Chest and abdominal pain radiating into back pain. CT DLP: 3201 mGycm. Automated Exposure Control for Dose Reduction was Utilized. CONTRAST: CT scan of the thorax, abdomen and pelvis is performed without oral but with IV Contrast, patient inj ected with 100 mL of Isovue 370. Aneurysm protocol with 3-D reconstructed images created on an [employer] workstation and reviewed FINDINGS: VASCULAR: Satisfactory enhancement of the central pulmonary arteries. Main pulmonary artery measures 3.3 cm in diameter axial image 32. CT findings consistent with underlying pulmonary hypertension. Adj acent ascending aorta measures up to 3.4 cm in diameter. Normal 3 vessel origins from arch. No signif icant plaque or stenosis. Patent celiac artery and SMA along with bilateral single renal arteries and MARA without significant plaque or stenosis. Patent common along with internal and external iliac art eries without significant plaque or stenosis. Patent superficial, and deep femoral arteries and bilat eral groin region without significant plaque or stenosis. No linear hypodensity to suggest dissection . LUNGS: The lungs are grossly clear, there is no concerning parenchymal mass or nodule identified. T here is no pleural effusion or pneumothorax seen. The tracheobronchial tree is patent. MEDIASTINUM: There are no greater than 1 cm hilar or mediastinal lymph nodes. No cardiomegaly or pe ricardial effusion is seen. OTHER: Small degree of subareolar gynecomastia noted bilaterally. LIVER/GB: Liver is diffusely low dense consistent with marked fatty infiltration. PANCREAS: No significant abnormality is seen. SPLEEN: No significant abnormality is seen. ADRENALS: No significant abnormality is seen. KIDNEYS: No significant abnormality is seen. BOWEL: Suboptimal evaluation of bowel without enteric contrast. No suspicious small or large bowel di latation. Mild/moderate wall thickening right colon from cecum through the transverse colon at level of splenic flexure. Mild wall thickening involving the proximal sigmoid colon. No significant surroun ding fat stranding noted. GENITAL ORGANS: No gross abnormality seen. LYMPH NODES: No greater than 1cm abdominal or pelvic lymph nodes are appreciated. OSSEOUS STRUCTURES: Spine somewhat straightened on sagittal images. No large disc herniation noted. OTHER: Small fat-containing right inguinal hernia. Small fat-containing umbilical hernia. IMPRESSION: 1. No aortic aneurysm or dissection. Cannot exclude mild uncomplicated acute colitis though favor pro duct of poor distention. No possible new or acute finding is otherwise identified.
[2020-04-17] MEDS ORDERED: MORPHINE SULFATE 4 MG/ML SYRINGE IV STA (11:18)
[2020-04-17] MEDS ORDERED: NITROGLYCERIN SL TABS 0.4 MG TAB SUBLINGUAL PRN (11:55)
[2020-04-17] MEDS ORDERED: traMADol 50 MG TAB PO STA (13:06)
[2020-04-17] MEDS ORDERED: traMADol 50 MG TAB PO PRN (14:11)
[2020-04-17] MEDS ORDERED: PANTOPRAZOLE 40 MG/10 ML VIAL IVP SCH (14:15)
--- NOTE | 2020-04-17 14:17 | P.HPIM ---
History of Present Illness 29-year-old male came in with compensative chest pain is sharp in nature radiating to the back patient is also comparing of multiple areas of pain all of which are was 10/10 in severity patient was recently seen in the hospital with similar pain and patient was treated for back pain and was discharged. Patient does have chronic low back pain patient denied any weakness in legs known denied any tingling numbness patient is complaining of lower back pain and left flank pain patient doesn't have any tenderness in those areas. Patient denied any shortness of breath associated with that patient had any recent fall or trauma. Patient denied any diaphoresis. Patient had a CAT scan of the thorax which showed some colitis on the right side of the colon. Patient has urine drug screen that is positive for marijuana. He has requested me to admit the patient for acute concurrent syndromes with a consult to cardiology. Patient denied any fever chills dysuria cough. Patient chest pain is nonpleuritic patient is complaining of acid reflux with retrosternal burning sensation, patient says he takes Advil for back pain. When I was evaluating the patient patient was given morphine for pain with which patient was complaining of squeezing sensation he felt like his heart is being squeezed. Review of Systems REVIEW OF SYSTEMS: CONSTITUTIONAL: No fever, no malaise, no fatigue. HEENT: No recent visual problems or hearing problems. Denied any sore throat. CARDIOVASCULAR: No orthopnea, PND, no palpitations, no syncope. PULMONARY: No shortness of breath, no cough, no hemoptysis. GASTROINTESTINAL: No diarrhea, no nausea, no vomiting, no abdominal pain. NEUROLOGICAL: No headaches, no weakness, no numbness. HEMATOLOGICAL: Denies any bleeding or petechiae. GENITOURINARY: Denies any burning micturition, frequency, or urgency. MUSCULOSKELETAL/RHEUMATOLOGICAL: Denies any joint pain, swelling, or any muscle pain. Back pain as mentioned above ENDOCRINE: Denies any polyuria or polydipsia. The rest of the 14-point review of systems is negative. Past Medical History Additional Past Medical History / Comment(s): kidney stones, pleurisy History of Any Multi-Drug Resistant Organisms: None Reported Past Surgical History: No Surgical Hx Reported Past Psychological History: Bipolar, Depression Smoking Status: Current every day smoker Past Alcohol Use History: Occasional Past Drug Use History: Marijuana Medications and Allergies Home Medications Medication Instructions Recorded Confirmed Type Diclofenac Sodium [Voltaren] 75 mg PO ONCE 04/17/20 04/17/20 History Polyethylene Glycol 3350 [Miralax] 17 gm PO DAILY PRN 04/17/20 04/17/20 History Simethicone [Gas-X] 125 mg PO ACHS PRN 04/17/20 04/17/20 History Allergies Allergy/AdvReac Type Severity Reaction Status Date / Time No Known Allergies Allergy Verified 04/17/20 11:35 Physical Exam Vitals: Vital Signs Temp Pulse Pulse Resp BP Pulse Ox 04/17/20 08:30 132/86 04/17/20 08:24 75 32 H 04/17/20 08:00 67 13 140/78 100 04/17/20 07:48 98 F 77 18 140/78 99 Intake and Output 04/16/20 04/17/20 04/17/20 22:59 06:59 14:59 Other: Weight 129.274 kg PHYSICAL EXAMINATION: GENERAL: The patient is alert and oriented x3, not in any acute distress. Well developed, well nourished. Obese HEENT: Pupils are round and equally reacting to light. EOMI. No scleral icterus. No conjunctival pallor. Normocephalic, atraumatic. No pharyngeal erythema. No thyromegaly. CARDIOVASCULAR: S1 and S2 present. No murmurs, rubs, or gallops. PULMONARY: Chest is clear to auscultation, no wheezing or crackles. ABDOMEN: Soft, nontender, nondistended, normoactive bowel sounds. No palpable organomegaly. MUSCULOSKELETAL: No joint swelling or deformity. EXTREMITIES: No cyanosis, clubbing, or pedal edema. NEUROLOGICAL: Gross neurological examination did not reveal any focal deficits. SKIN: No rashes. Results CBC & Chem 7: 04/17/20 08:05 04/17/20 08:05 Labs: Abnormal Lab Results - Last 24 Hours (Table) 04/17/20 04/17/20 Range/Units 08:05 09:02 Glucose 114 H (74-99) mg/dL ALT 50 H (4-49) U/L U Marijuana (THC) Screen Detected H (NotDetected) Assessment and Plan Plan: -Chest pain we will rule out acute coronary syndromes, cardiology was consulted from ER. patient may have gastroesophageal reflux disease patient was started on Protonix -Low back pain with left flank pain: We'll order computed tomography scan of the lumbar spine. As patient did not tolerate morphine and patient has acid reflux symptoms use tramadol instead of opiates or nonsteroidal anti-inflammatory medications like Toradol -Obesity -Marijuana use, nicotine use: Counseling was provided -Depression
[2020-04-17] MEDS ORDERED: AMPICILLIN-SULBACTAM 3 GM in SODIUM CHLORIDE 0.9% 100 ML IVPB SCH (16:00)
--- NOTE | 2020-04-17 17:00 | CT ---
EXAMINATION TYPE: CT lumbar spine w con DATE OF EXAM: 04/17/2020 COMPARISON: Same day CTA study. HISTORY: Low back pain. Automated exposure control for dose reduction was used. CONTRAST: CT scan of the lumbar is performed with IV Contrast, patient injected with 100 mL of Isovue 370. Enhanced CT of the lumbar spine was performed. Bone and soft tissue window settings are submitted as well as coronal and sagittal reconstructions. There are 5 lumbar-type vertebra. Lumbar spine shows satisfactory alignment without evidence of acute fracture or dislocation. Vertebral body heights and disc space heights are fairly well-maintained. N o significant disc herniations are seen on sagittal or axial images. Paraspinal muscle bulk is preser lindsey. Incidental accessory right renal artery noted. IMPRESSION: As above.
[2020-04-18] MEDS ORDERED: ASPIRIN 325 MG TAB PO SCH (09:00)
--- NOTE | 2020-04-18 11:50 | P.DS ---
Providers Consults: 04/17/20 11:55 Consult Physician Urgent Consulting Provider: Dario Bonilla Consult Reason/Comments: chest pain, pulmonary htn Do you want consulting provider notified?: Yes Primary care physician: [facility] Course: Patient appears to have been discharged from ER, was admitted to my service yesterday. Patient Condition at Discharge: Serious Plan - Discharge Summary New Discharge Prescriptions: No Action Polyethylene Glycol 3350 [Miralax] 17 gm PO DAILY PRN PRN Reason: Constipation Simethicone [Gas-X] 125 mg PO ACHS PRN PRN Reason: bloating or gas Diclofenac Sodium [Voltaren] 75 mg PO ONCE Discharge Medication List Diclofenac Sodium [Voltaren] 75 mg PO ONCE 04/17/20 [History] Polyethylene Glycol 3350 [Miralax] 17 gm PO DAILY PRN 04/17/20 [History] Simethicone [Gas-X] 125 mg PO ACHS PRN 04/17/20 [History] Follow up Appointment(s)/Referral(s): [facility] [Primary Care Provider] - 1-2 days Discharge Disposition: ADMITTED IP TO THIS HOSP
== END 2020-04-17 15:47 | disposition other institution (70) ==
LOC: EC 07:46 → 1SOBS 14:51 → UNDOADMOB 14:51 → EC 15:47
DX: R07.2 Precordial pain (principal); R10.9 Unspecified abdominal pain; M54.6 Pain in thoracic spine; M54.5 Low back pain; F41.9 Anxiety disorder, unspecified; F17.200 Nicotine dependence, unspecified, uncomplicated; Z79.1 Long term (current) use of non-steroidal anti-inflammatories (NSAID)
CPT/HCPCS: 99285; 96374; 96361 ×3; 36415; 93005; 80053; 83735; 84484; 85025; 85610; 85730; 81003; 80306; 72132; 71275; 74174; U0003; J2270; Q9967

== ENCOUNTER 2020-09-17 11:36 | Emergency (ER) | payer OTHER ==
[2020-09-17 11:43] VITALS: RESP 18
[2020-09-17] MEDS ORDERED: SODIUM CHLORIDE 0.9% 1,000 ML IV STA (12:08)
[2020-09-17] MEDS ORDERED: ONDANSETRON 4 MG/2 ML VIAL IVP STA (12:08)
[2020-09-17] MEDS ORDERED: KETOROLAC 15 MG/ML 1 ML VIAL IVP STA (12:08)
[2020-09-17 12:29] LABS: Basophils # (A) 0.1 k/uL (0-0.2); Basophils % (A) 1 %; Eosinophils # (A) 0.5 k/uL (0-0.7); Eosinophils % (A) 6 %; HCT 47.7 % (39.0-53.0); Lymphocytes # (A) 2.2 k/uL (1.0-4.8); Lymphocytes % (A) 29 %; MCH 30.1 pg (25.0-35.0); MCHC 33.5 g/dL (31.0-37.0); MCV 89.8 fL (80.0-100.0); Mean Platelet Volume 7.8; Monocytes # (A) 0.5 k/uL (0-1.0); Monocytes % (A) 6 %; Neutrophils # (A) 4.3 k/uL (1.3-7.7); Neutrophils % (A) 56 %; Platelet Count 249 k/uL (150-450); RBC 5.31 m/uL (4.30-5.90); RDW 12.4 % (11.5-15.5); WBC 7.7 k/uL (3.8-10.6)
[2020-09-17 12:30] LABS: Appearance,Urine Clear (Clear); Bilirubin,Urine Negative (Negative); Blood,Urine Negative (Negative); Color,Urine Light Yellow; Glucose,Urine (UA) Negative (Negative); Ketones,Urine Negative (Negative); Leukocyte Esterase,Urine Negative (Negative); Nitrite,Urine Negative (Negative); PH, Urine 7.5 (5.0-8.0); Protein,Urine Negative (Negative); Specific Gravity,Urine 1.004 (1.001-1.035); Urobilinogen,Urine <2.0 mg/dL (<2.0)
--- NOTE | 2020-09-17 12:32 | ED ---
Abdominal Pain HPI - General Chief Complaint: Abdominal Pain Stated Complaint: abdominal pain Time Seen by Provider: 09/17/20 11:49 Source: patient Mode of arrival: ambulatory Limitations: no limitations - History of Present Illness Initial Comments: Patient is a 30-year-old male presenting to the emergency Department with complaints of right-sided abdominal pain that started last night. Patient states the pain started on the right side of his belly button and has moved to the lower suprapubic, right lower quadrant. Patient is also having pain ref erred to the right side of his abdomen into his right flank. He states he does have a history of kidney stones, he denies any hematuria. He denies any abdominal surgeries but doesn't history of IBS. He states he has a mixture of constipation, diarrhea. He states he did take some laxatives over the last few days and is now having looser stools. Denies fever, chills. Does admit to some nausea, no vomiting. He denies any chest pain, shortness of breath. Patient has no further complaints at this time. Upon arrival to the ER, vital signs are stable. - Related Data Home Medications Medication Instructions Recorded Confirmed Amitriptyline HCl 10 mg PO HS 09/17/20 09/17/20 Dicyclomine HCl 20 mg PO QID 09/17/20 09/17/20 Allergies Allergy/AdvReac Type Severity Reaction Status Date / Time No Known Allergies Allergy Verified 09/17/20 13:10 Review of Systems ROS Statement: Those systems with pertinent positive or pertinent negative responses have been documented in the HPI. ROS Other: All systems not noted in ROS Statement are negative. Past Medical History Additional Past Medical History / Comment(s): kidney stones, pleurisy, umbilical hernia History of Any Multi-Drug Resistant Organisms: None Reported Past Surgical History: No Surgical Hx Reported Past Psychological History: Anxiety, Bipolar, Depression Smoking Status: Current every day smoker Past Alcohol Use History: Occasional Past Drug Use History: Marijuana General Exam - General Exam Comments Initial Comments: GENERAL: Patient is well-developed and well-nourished. Patient is nontoxic and in no acute distress, does look uncomfortable. HEAD: Atraumatic, normocephalic. EYES: Pupils equal round and reactive to light, extraocular movements intact, sclera anicteric, conjunctiva are normal. Eyelids were unremarkable. ENT: TMs normal, nares patent, oropharynx clear without exudates. Moist mucous membranes. NECK: Normal range of motion, supple without lymphadenopathy or JVD. LUNGS: Unlabored respirations. Breath sounds clear to auscultation bilaterally and equal. No wheezes rales or rhonchi. HEART: Regular rate and rhythm without murmurs, rubs or gallops. ABDOMEN: Tender to palpation in the suprapubic, right lower quadrant, right side of the abdomen, mild guarding. Soft, normoactive bowel sounds. No masses appreciated. : Deferred MUSCULOSKELETAL: Normal extremities with adequate strength and normal range of motion, no pitting or edema. No clubbing or cyanosis. NEUROLOGICAL: Patient is alert and oriented x 3. Motor and sensory are also intact. Cranial nerves II through XII grossly intact. Symmetrical smile. Normal speech, normal gait. PSYCH: Normal mood, normal affect. SKIN: Warm, Dry, normal turgor, no rashes or lesions noted. Limitations: no limitations Course Vital Signs 09/17/20 09/17/20 11:41 14:24 Temperature 97.7 F 97.2 F L Pulse Rate 76 70 Respiratory 18 18 Rate Blood Pressure 150/87 110/72 O2 Sat by Pulse 100 99 Oximetry Medical Decision Making - Medical Decision Making Patient is a 30-year-old male here for right lower quadrant, right abdomen pain since last night. He does have a history of kidney stones and IBS, denies hematuria. Patient's vitals are stable. Patient's labs are unremarkable, lactic acid is normal, urine shows no evidence of infection or hematuria. Patient's computed tomography scan shows a normal appendix, no other acute process. Patient was given fluids and Toradol reports improvement of symptoms. I discussed these findings with the patient. His symptoms are most likely related to his IBS. He is stable for discharge. Patient is in agreement with this plan of care. He will follow-up with his GI doctor. Return parameters were discussed with the patient he verbalizes understanding. Case discussed with Dr. Arriola - Lab Data Result diagrams: 09/17/20 12:19 09/17/20 12:19 Lab Results 09/17/20 09/17/20 09/17/20 Range/Units 12:19 12:19 12:19 WBC 7.7 (3.8-10.6) k/uL RBC 5.31 (4.30-5.90) m/uL Hgb 16.0 (13.0-17.5) gm/dL Hct 47.7 (39.0-53.0) % MCV 89.8 (80.0-100.0) fL MCH 30.1 (25.0-35.0) pg MCHC 33.5 (31.0-37.0) g/dL RDW 12.4 (11.5-15.5) % Plt Count 249 (150-450) k/uL Neutrophils % 56 % Lymphocytes % 29 % Monocytes % 6 % Eosinophils % 6 % Basophils % 1 % Neutrophils # 4.3 (1.3-7.7) k/uL Lymphocytes # 2.2 (1.0-4.8) k/uL Monocytes # 0.5 (0-1.0) k/uL Eosinophils # 0.5 (0-0.7) k/uL Basophils # 0.1 (0-0.2) k/uL Sodium 139 (137-145) mmol/L Potassium 4.2 (3.5-5.1) mmol/L Chloride 101 (98-107) mmol/L Carbon Dioxide 27 (22-30) mmol/L Anion Gap 11 mmol/L BUN 13 (9-20) mg/dL Creatinine 0.78 (0.66-1.25) mg/dL Est GFR (CKD-EPI)AfAm >90 (>60 ml/min/1.73 sqM) Est GFR (CKD-EPI)NonAf >90 (>60 ml/min/1.73 sqM) Glucose 100 H (74-99) mg/dL Plasma Lactic Acid Santhosh (0.7-2.0) mmol/L Calcium 10.0 (8.4-10.2) mg/dL Total Bilirubin 0.6 (0.2-1.3) mg/dL AST 26 (17-59) U/L ALT 27 (4-49) U/L Alkaline Phosphatase 70 (38-126) U/L Total Protein 8.1 (6.3-8.2) g/dL Albumin 4.9 (3.5-5.0) g/dL Amylase 75 (30-110) U/L Lipase 115 (23-300) U/L Urine Color Light Yellow Urine Appearance Clear (Clear) Urine pH 7.5 (5.0-8.0) Ur Specific [place] 1.004 (1.001-1.035) Urine Protein Negative (Negative) Urine Glucose (UA) Negative (Negative) Urine Ketones Negative (Negative) Urine Blood Negative (Negative) Urine Nitrite Negative (Negative) Urine Bilirubin Negative (Negative) Urine Urobilinogen <2.0 (<2.0) mg/dL Ur Leukocyte Esterase Negative (Negative) 09/17/20 Range/Units 12:19 WBC (3.8-10.6) k/uL RBC (4.30-5.90) m/uL Hgb (13.0-17.5) gm/dL Hct (39.0-53.0) % MCV (80.0-100.0) fL MCH (25.0-35.0) pg MCHC (31.0-37.0) g/dL RDW (11.5-15.5) % Plt Count (150-450) k/uL Neutrophils % % Lymphocytes % % Monocytes % % Eosinophils % % Basophils % % Neutrophils # (1.3-7.7) k/uL Lymphocytes # (1.0-4.8) k/uL Monocytes # (0-1.0) k/uL Eosinophils # (0-0.7) k/uL Basophils # (0-0.2) k/uL Sodium (137-145) mmol/L Potassium (3.5-5.1) mmol/L Chloride (98-107) mmol/L Carbon Dioxide (22-30) mmol/L Anion Gap mmol/L BUN (9-20) mg/dL Creatinine (0.66-1.25) mg/dL Est GFR (CKD-EPI)AfAm (>60 ml/min/1.73 sqM) Est GFR (CKD-EPI)NonAf (>60 ml/min/1.73 sqM) Glucose (74-99) mg/dL Plasma Lactic Acid Santhosh 1.6 (0.7-2.0) mmol/L Calcium (8.4-10.2) mg/dL Total Bilirubin (0.2-1.3) mg/dL AST (17-59) U/L ALT (4-49) U/L Alkaline Phosphatase (38-126) U/L Total Protein (6.3-8.2) g/dL Albumin (3.5-5.0) g/dL Amylase (30-110) U/L Lipase (23-300) U/L Urine Color Urine Appearance (Clear) Urine pH (5.0-8.0) Ur Specific [place] (1.001-1.035) Urine Protein (Negative) Urine Glucose (UA) (Negative) Urine Ketones (Negative) Urine Blood (Negative) Urine Nitrite (Negative) Urine Bilirubin (Negative) Urine Urobilinogen (<2.0) mg/dL Ur Leukocyte Esterase (Negative) Disposition Clinical Impression: Abdominal pain Disposition: HOME SELF-CARE Condition: Stable Instructions (If sedation given, give patient instructions): Abdominal Pain (ED) Additional Instructions: Please return to the Emergency Department if symptoms worsen or any other concerns. Follow up with GI doctor. Is patient prescribed a controlled substance at d/c from ED?: No Referrals: Buddy Alvarez MD [Primary Care Provider] - 1-2 days
[2020-09-17 12:39] LABS: ALT 27 U/L (4-49); AST 26 U/L (17-59); African American GFR (CKD) >90 (>60 ml/min/1.73 sqM); Albumin 4.9 g/dL (3.5-5.0); Alkaline Phosphatase 70 U/L (38-126); Amylase 75 U/L (30-110); Anion Gap 11 mmol/L; Blood Urea Nitrogen 13 mg/dL (9-20); Carbon Dioxide 27 mmol/L (22-30); Chloride 101 mmol/L (98-107); Glucose 100 mg/dL (74-99); Lipase 115 U/L (23-300); Non-African American GFR(CKD) >90 (>60 ml/min/1.73 sqM); Potassium 4.2 mmol/L (3.5-5.1); Sodium 139 mmol/L (137-145); Total Bilirubin 0.6 mg/dL (0.2-1.3); Total Protein 8.1 g/dL (6.3-8.2)
--- NOTE | 2020-09-17 13:38 | CT ---
EXAMINATION TYPE: CT abdomen pelvis w con DATE OF EXAM: 09/17/2020 COMPARISON: 08/10/2020 INDICATION: Midline and right lower quadrant pain, hx. IBS DLP: 1530.5 mGycm, Automated exposure control for dose reduction was used. CONTRAST: 100 mL of Isovue 300. Study performed without Oral Contrast TECHNIQUE: Axial images were obtained from above the diaphragm to the pubic rami in the axial plane a t 5 mm thick sections. Reconstructed images are reviewed on the computer in the coronal plane. FINDINGS: Limited CT sections are obtained the lung bases. The lung bases are clear. CT ABDOMEN: Liver: Normal Spleen: Normal Pancreas: Normal Adrenal glands: The adrenal glands are normal. Gallbladder: Normal Kidneys: No masses are evident. No hydronephrosis is present. No cysts are present. No renal stone s are identified. Aorta: Normal Inferior vena cava: Normal. CT PELVIS: Loops of bowel within the abdomen and pelvis are normal. Study is without oral contrast limiting bowel evaluation. No suspicious thickened bowel wall is evident Appendix: Normal as visualized. Urinary bladder: Normal. Genitourinary structures: Prostate is normal Osseous structures: No suspicious lytic or sclerotic lesions. IMPRESSIONS: 1. No suspicious acute abdominal changes
[2020-09-17 14:25] VITALS: BP 110/72; PULSE 70; TEMP 97.2
== END 2020-09-17 14:25 | disposition home or self-care (01) ==
LOC: EC 11:36
DX: R10.31 Right lower quadrant pain (principal); K58.9 Irritable bowel syndrome, unspecified; F41.9 Anxiety disorder, unspecified; F32.9 Major depressive disorder, single episode, unspecified; F17.200 Nicotine dependence, unspecified, uncomplicated; Z79.899 Other long term (current) drug therapy; Z87.442 Personal history of urinary calculi
CPT/HCPCS: 36415; 80053; 82150; 83605; 83690; 85025; 81003; 74177; 99284; 96374; 96375; 96361; J2405; J1885; Q9967

== ENCOUNTER → 2020-09-25 | Outpatient (CLI) | payer OTHER ==
[2020-09-25 16:37] LABS: Gliadin AB IgA, Deaminated NEGATIVE (NEGATIVE); Gliadin AB IgA, Unit <0.2 U/mL; Gliadin AB IgG, Deaminated NEGATIVE (NEGATIVE)
== END | disposition home or self-care (01) ==
LOC: LABWHC1 09:18
PROVIDERS: ATTEND Nurse Practitioner
DX: R19.4 Change in bowel habit (principal)
CPT/HCPCS: 36415; 83516

== ENCOUNTER 2020-10-23 18:51 | Emergency (ER) | payer OTHER ==
[2020-10-23 18:55] VITALS: RESP 18
[2020-10-23] MEDS ORDERED: ACETAMINOPHEN TAB 500 MG TAB PO STA (19:12)
[2020-10-23] MEDS ORDERED: SODIUM CHLORIDE 0.9% 1,000 ML IV STA (19:12)
[2020-10-23] MEDS ORDERED: IBUPROFEN 600 MG TAB PO STA (19:13)
--- NOTE | 2020-10-23 19:15 | ED ---
General Adult HPI - General Chief complaint: Recheck/Abnormal Lab/Rx Stated complaint: COVID Exposure,Dizziness Time Seen by Provider: 10/23/20 19:04 Source: patient, RN notes reviewed Mode of arrival: wheelchair Limitations: no limitations - History of Present Illness Initial comments: Patient is a pleasant 30-year-old male presenting to the emergency department several complaints. Onset of symptoms was 2 days ago. Symptoms have progressively worsened. Patient does have chills and fatigue and myalgias. Patient does have sore throat. Patient has headaches. Patient has nausea and decreased appetite. No vomiting or diarrhea. No abdominal pain. Patient does have dry cough. Patient feels lightheaded. Patient was tested for virus earlier today but results have not been reported yet - Related Data Home Medications Medication Instructions Recorded Confirmed Dicyclomine HCl 20 mg PO QID 09/17/20 10/23/20 Acetaminophen Tab [Tylenol Tab] 500 mg PO Q6H PRN 10/23/20 10/23/20 Ibuprofen [Motrin Ib] 600 mg PO Q8H PRN 10/23/20 10/23/20 Allergies Allergy/AdvReac Type Severity Reaction Status Date / Time No Known Allergies Allergy Verified 10/23/20 20:36 Review of Systems ROS Statement: Those systems with pertinent positive or pertinent negative responses have been documented in the HPI. ROS Other: All systems not noted in ROS Statement are negative. Constitutional: Reports: fever, chills, weakness Eyes: Denies: eye pain ENT: Denies: ear pain Respiratory: Reports: cough Cardiovascular: Denies: chest pain Endocrine: Reports: fatigue Gastrointestinal: Reports: nausea. Denies: abdominal pain Genitourinary: Denies: dysuria Musculoskeletal: Denies: back pain Skin: Denies: rash Neurological: Reports: headache Past Medical History Additional Past Medical History / Comment(s): kidney stones, pleurisy, umbilical hernia History of Any Multi-Drug Resistant Organisms: None Reported Past Surgical History: No Surgical Hx Reported Past Psychological History: Anxiety, Bipolar, Depression Smoking Status: Current every day smoker Past Alcohol Use History: Occasional Past Drug Use History: Marijuana General Exam Limitations: no limitations General appearance: alert, in no apparent distress Head exam: Present: normocephalic Eye exam: Present: normal appearance ENT exam: Present: other (Pharyngeal erythema) Neck exam: Present: lymphadenopathy. Absent: tenderness, meningismus Respiratory exam: Present: normal lung sounds bilaterally Cardiovascular Exam: Present: regular rate, normal rhythm GI/Abdominal exam: Present: soft. Absent: tenderness Extremities exam: Present: normal inspection. Absent: pedal edema, calf tenderness Neurological exam: Present: alert. Absent: motor sensory deficit Psychiatric exam: Present: normal affect, normal mood Skin exam: Present: normal color Course Vital Signs 10/23/20 18:54 Temperature 98.4 F Pulse Rate 97 Respiratory 18 Rate Blood Pressure 142/89 O2 Sat by Pulse 100 Oximetry Medical Decision Making - Medical Decision Making Patient reevaluated and is feeling somewhat better. Patient updated on results and need for follow-up. - Lab Data Lab Results 10/23/20 Range/Units 19:30 Group A Strep Rapid Negative (Negative) - Radiology Data Radiology results: image reviewed (Chest x-ray shows no acute process) Disposition Clinical Impression: Viral syndrome Disposition: HOME SELF-CARE Condition: Stable Instructions (If sedation given, give patient instructions): Fever in Adults (ED) Additional Instructions: Please follow-up with primary care physician in the next day or 2 for recheck. Please self quarantine unless rotavirus results come back negative. Return for uncontrolled fever, not telling oral intake, difficulty breathing, worsening symptoms or other concerns. [id number] Tylenol and Motrin as needed. [id number] vitamin D, vitamin C, and zinc until symptoms have resolved. Is patient prescribed a controlled substance at d/c from ED?: No Referrals: Buddy Alvarez MD [Primary Care Provider] - 1-2 days Time of Disposition: 20:42
--- NOTE | 2020-10-23 19:59 | XR ---
EXAMINATION TYPE: XR chest 2V DATE OF EXAM: 10/23/2020 COMPARISON: 06/16/2019 HISTORY: Syncope. Cough TECHNIQUE: FINDINGS: Heart and mediastinum are normal. Lungs are clear. Diaphragm is normal. There are no hilar masses. Bony thorax is intact. There is old healed fracture right posterior eighth rib. IMPRESSION: No active cardiopulmonary disease. No adverse change.
[2020-10-23 20:56] VITALS: BP 124/77; PULSE 73; TEMP 99
== END 2020-10-23 20:57 | disposition home or self-care (01) ==
LOC: EC 18:51
DX: B34.9 Viral infection, unspecified (principal); F17.200 Nicotine dependence, unspecified, uncomplicated; Z79.899 Other long term (current) drug therapy
CPT/HCPCS: 71046; 87081; 87430; 96360; 99284

== ENCOUNTER → 2020-10-23 | Outpatient (CLI) | payer OTHER | END | disposition home or self-care (01) | LOC: LABWHC1 10:44 | PROVIDERS: ATTEND Nurse Practitioner Family | DX: Z20.828 Contact with and (suspected) exposure to other viral communicable diseases (principal) | CPT/HCPCS: U0003; C9803 ==

== ENCOUNTER 2020-10-27 23:31 | Emergency (ER) | payer OTHER ==
[2020-10-27 23:50] VITALS: RESP 16
--- NOTE | 2020-10-27 23:56 | ED ---
Chest Pain HPI - General Chief Complaint: Chest Pain Stated Complaint: chest pain Time Seen by Provider: 10/27/20 23:56 Source: patient Mode of arrival: wheelchair Limitations: no limitations - History of Present Illness Initial Comments: 30-year-old male with history of anxiety presenting to the emergency department chief complaint of chest pain. Patient states chest pain started about one hour ago and is located in the midsternal region and is reproducible palpation. He also reports some associated back pain with it. States he has similar type pain several months ago and was in emergency Department with full cardiac evaluation that was unremarkable. Patient states there is no associated shortness of breath, diaphoretic episodes, light headedness, dizziness or one-sided weakness or paresthesias. States that he is feeling anxious but is not being medically treated for it, however he does see a psychiatrist. Denies any nausea vomiting headaches visual changes. He is a smoker. - Related Data Home Medications Medication Instructions Recorded Confirmed Dicyclomine HCl 20 mg PO QID 09/17/20 10/23/20 Acetaminophen Tab [Tylenol Tab] 500 mg PO Q6H PRN 10/23/20 10/23/20 Ibuprofen [Motrin Ib] 600 mg PO Q8H PRN 10/23/20 10/23/20 Allergies Allergy/AdvReac Type Severity Reaction Status Date / Time No Known Allergies Allergy Verified 10/27/20 23:49 Review of Systems ROS Statement: Those systems with pertinent positive or pertinent negative responses have been documented in the HPI. ROS Other: All systems not noted in ROS Statement are negative. Past Medical History Additional Past Medical History / Comment(s): kidney stones, pleurisy, umbilical hernia History of Any Multi-Drug Resistant Organisms: None Reported Past Surgical History: No Surgical Hx Reported Past Psychological History: Anxiety, Bipolar, Depression Smoking Status: Current every day smoker Past Alcohol Use History: None Reported Past Drug Use History: Marijuana General Exam Limitations: no limitations General appearance: alert, in no apparent distress, anxious, obese Head exam: Present: atraumatic, normocephalic, normal inspection Eye exam: Present: normal appearance, PERRL, EOMI Pupils: Present: normal accommodation ENT exam: Present: normal exam, normal oropharynx, mucous membranes moist, TM's normal bilaterally, normal external ear exam Neck exam: Present: normal inspection, full ROM. Absent: tenderness Respiratory exam: Present: normal lung sounds bilaterally, chest wall tenderness (Midsternal reproducible chest pain). Absent: respiratory distress, wheezes, rales Cardiovascular Exam: Present: regular rate, normal rhythm, normal heart sounds. Absent: systolic murmur, diastolic murmur Extremities exam: Present: normal inspection, full ROM, normal capillary refill. Absent: tenderness, pedal edema, joint swelling, calf tenderness Back exam: Present: normal inspection, full ROM. Absent: tenderness, CVA tenderness (R), CVA tenderness (L) Neurological exam: Present: alert, oriented X3 Psychiatric exam: Present: normal affect, anxious Skin exam: Present: warm, dry, intact, normal color Course Vital Signs 10/27/20 10/27/20 10/28/20 23:47 23:52 01:00 Temperature 99.0 F Pulse Rate 84 92 Pulse Rate [ 94 [employer] ] Respiratory 16 16 Rate Blood Pressure 136/95 126/82 O2 Sat by Pulse 100 96 Oximetry 10/28/20 02:08 Temperature 98.0 F Pulse Rate 69 Pulse Rate [ Fre[employer]her ] Respiratory 16 Rate Blood Pressure 112/95 O2 Sat by Pulse 96 Oximetry Chest Pain MDM - MDM 30-year-old male with history of anxiety presenting to the emergency department with a chief complaint of chest pain. On physical examination, patient is very anxious. He also has reproducible midsternal chest pain with palpation. This appears to be atypical chest pain and likely costochondritis. I gave the patient anxiolytics and Toradol. On reevaluation patient reports the symptoms have resolved and he feels much better. He never had any chest pain. No focal neural deficits. X-ray of the chest is unremarkable. EKG showing an incomplete right bundle branch block. Patient advised to follow-up with a primary care physician. Strict return primary with oral discussed the patient was standing agreeable. Case discussed physician. Disposition Clinical Impression: Atypical chest pain Disposition: HOME SELF-CARE Condition: Stable Instructions (If sedation given, give patient instructions): Chest Pain (ED), Costochondritis (ED) Additional Instructions: Follow-up with the primary care physician. Return to emergency department if s ymptoms worsen. Is patient prescribed a controlled substance at d/c from ED?: No Referrals: Buddy Alvarez MD [Primary Care Provider] - 1-2 days Time of Disposition: 01:57
--- NOTE | 2020-10-28 00:13 | XR ---
EXAMINATION TYPE: XR chest 2V DATE OF EXAM: 10/28/2020 COMPARISON: 10/23/2020 HISTORY: Chest pain TECHNIQUE: FINDINGS: Heart and mediastinum are normal. Lungs are clear. Diaphragm is normal. There is old right- sided healed rib fracture. Bony thorax is intact. IMPRESSION: No active cardiopulmonary disease. Normal heart. No change.
[2020-10-28] MEDS ORDERED: KETOROLAC 15 MG/ML 1 ML VIAL IM STA (00:39)
[2020-10-28] MEDS ORDERED: ALPRAZolam 0.5 MG TAB PO STA (00:39)
[2020-10-28] MEDS ORDERED: LORazepam 2 MG/ML INJ IV STA (00:54)
[2020-10-28] MEDS ORDERED: KETOROLAC 15 MG/ML 1 ML VIAL IVP STA (00:54)
[2020-10-28 02:09] VITALS: BP 112/95; PULSE 69; TEMP 98
== END 2020-10-28 02:22 | disposition home or self-care (01) ==
LOC: EC 23:31
DX: R07.89 Other chest pain (principal); F17.200 Nicotine dependence, unspecified, uncomplicated; F41.9 Anxiety disorder, unspecified; R07.2 Precordial pain; I45.10 Unspecified right bundle-branch block; M54.9 Dorsalgia, unspecified
CPT/HCPCS: 93005; 71046; 99285; 96374; 96375; J2060; J1885

== ENCOUNTER 2020-12-14 04:25 | Emergency (ER) | payer OTHER ==
[2020-12-14] MEDS ORDERED: KETOROLAC 15 MG/ML 1 ML VIAL IVP STA (04:41)
[2020-12-14] MEDS ORDERED: SODIUM CHLORIDE 0.9% 1,000 ML IV STA (04:41)
[2020-12-14] MEDS ORDERED: HYDROmorphone 1 MG/ML 1 ML SYRINGE IVP STA (04:42)
[2020-12-14 05:08] LABS: Basophils # (A) 0.1 k/uL (0-0.2); Basophils % (A) 2 %; Eosinophils # (A) 0.7 k/uL (0-0.7); Eosinophils % (A) 8 %; HCT 45.9 % (39.0-53.0); HGB 16.5 gm/dL (13.0-17.5); Lymphocytes # (A) 2.5 k/uL (1.0-4.8); Lymphocytes % (A) 31 %; MCH 30.9 pg (25.0-35.0); Mean Platelet Volume 7.2; Monocytes # (A) 0.6 k/uL (0-1.0); Monocytes % (A) 7 %; Neutrophils # (A) 4.1 k/uL (1.3-7.7); Neutrophils % (A) 51 %; Platelet Count 270 k/uL (150-450); RBC 5.34 m/uL (4.30-5.90); RDW 12.3 % (11.5-15.5); WBC 8.2 k/uL (3.8-10.6)
[2020-12-14 05:20] LABS: ALT 27 U/L (4-49); AST 23 U/L (17-59); African American GFR (CKD) >90 (>60 ml/min/1.73 sqM); Albumin 4.7 g/dL (3.5-5.0); Alkaline Phosphatase 73 U/L (38-126); Amylase 112 U/L (30-110); Anion Gap 10 mmol/L; Blood Urea Nitrogen 13 mg/dL (9-20); Calcium 9.9 mg/dL (8.4-10.2); Carbon Dioxide 30 mmol/L (22-30); Chloride 101 mmol/L (98-107); Glucose 115 mg/dL (74-99); Lipase 448 U/L (23-300); Non-African American GFR(CKD) >90 (>60 ml/min/1.73 sqM); Potassium 4.6 mmol/L (3.5-5.1); Sodium 141 mmol/L (137-145); Total Bilirubin 0.5 mg/dL (0.2-1.3); Total Protein 8.1 g/dL (6.3-8.2)
--- NOTE | 2020-12-14 05:33 | CT ---
EXAM: CT Abdomen and Pelvis Without Intravenous Contrast CLINICAL HISTORY: Left flank pain. History of kidney stones. TECHNIQUE: Axial computed tomography images of the abdomen and pelvis without intravenous contrast. CTDI is 14.57 mGy and DLP is 876 mGy-cm. This CT exam was performed using one or more of the following dose reduction techniques: automated exposure control, adjustment of the mA and/or kV according to patient size, and/or use of iterative reconstruction technique. COMPARISON: 09/17/2020. FINDINGS: Lung bases: Unremarkable. No mass. No consolidation. ABDOMEN: Liver: Hepatomegaly, measuring up to 20.6 cm in greatest craniocaudad dimension, as seen on the prior study. Gallbladder and bile ducts: Unremarkable. No calcified stones. No ductal dilation. Pancreas: Unremarkable. No ductal dilation. Spleen: Unremarkable. No splenomegaly. Adrenals: Unremarkable. No mass. Kidneys and ureters: A 4 mm stone is seen in the dependent aspect of the urinary bladder with minimal left-sided hydronephrosis, likely representing a recently passed left ureteral stone. Stomach and bowel: Unremarkable. No obstruction. No mucosal thickening. PELVIS: Appendix: No findings to suggest acute appendicitis. Bladder: Unremarkable. No stones. Reproductive: Unremarkable as visualized. ABDOMEN and PELVIS: Intraperitoneal space: Unremarkable. No free air. No significant fluid collection. Bones/joints: No acute fracture. No dislocation. Soft tissues: Small fat-containing right inguinal hernia. Tiny fat- containing left inguinal hernia. Small fat-containing umbilical hernia. Vasculature: Unremarkable. No abdominal aortic aneurysm. Lymph nodes: Unremarkable. No enlarged lymph nodes. IMPRESSION: 1. A 4 mm stone in the dependent aspect of the urinary bladder with minimal left-sided hydronephrosis, likely representing a recently passed left ureteral stone. 2. Hepatomegaly.
--- NOTE | 2020-12-14 05:34 | ED ---
Abdominal Pain HPI - General Chief Complaint: Abdominal Pain Stated Complaint: poss kidney stone Time Seen by Provider: 12/14/20 04:27 Source: patient, RN notes reviewed, old records reviewed Mode of arrival: ambulatory Limitations: no limitations - History of Present Illness Initial Comments: This is a 28-year-old male DF for evaluation patient Dese for severe left flank pain never has had similar pain before, pain is persistent. He is nauseous seco ndary to severe pain. No fevers no trauma no injury no other complaints. Patient is able to urinate with no blood in the urine. Pain started sudden onset 30 minutes prior to arrival MD Complaint: abdominal pain, flank pain (Left-sided) -: minutes(s) (30) Location: LLQ, suprapubic, L flank Radiation: L flank Migration to: suprapubic Severity: severe Severity scale (1-10): 10 Quality: sharp Consistency: constant Improves With: nothing Worsens With: nothing Context: other (none) Associated Symptoms: nausea Treatments Prior to Arrival: NSAIDs - Related Data Home Medications Medication Instructions Recorded Confirmed Dicyclomine HCl 20 mg PO QID 09/17/20 10/23/20 Acetaminophen Tab [Tylenol Tab] 500 mg PO Q6H PRN 10/23/20 10/23/20 Ibuprofen [Motrin Ib] 600 mg PO Q8H PRN 10/23/20 10/23/20 Allergies Allergy/AdvReac Type Severity Reaction Status Date / Time morphine Allergy Chest Pain Verified 12/14/20 04:37 Review of Systems ROS Statement: Those systems with pertinent positive or pertinent negative responses have been documented in the HPI. ROS Other: All systems not noted in ROS Statement are negative. Past Medical History Additional Past Medical History / Comment(s): kidney stones, pleurisy, umbilical hernia History of Any Multi-Drug Resistant Organisms: None Reported Past Surgical History: No Surgical Hx Reported Past Psychological History: Anxiety, Bipolar, Depression Smoking Status: Current every day smoker Past Alcohol Use History: None Reported Past Drug Use History: Marijuana General Exam Limitations: no limitations General appearance: alert, in no apparent distress, anxious Head exam: Present: atraumatic, normocephalic, normal inspection Eye exam: Present: normal appearance, PERRL, EOMI. Absent: scleral icterus, conjunctival injection, periorbital swelling ENT exam: Present: normal exam, mucous membranes moist Neck exam: Present: normal inspection. Absent: tenderness, meningismus, lymphadenopathy Respiratory exam: Present: normal lung sounds bilaterally. Absent: respiratory distress, wheezes, rales, rhonchi, stridor Cardiovascular Exam: Present: regular rate, normal rhythm, normal heart sounds. Absent: systolic murmur, diastolic murmur, rubs, gallop, clicks GI/Abdominal exam: Present: soft, normal bowel sounds. Absent: distended, tenderness, guarding, rebound, rigid Extremities exam: Present: normal inspection, full ROM, normal capillary refill. Absent: tenderness, pedal edema, joint swelling, calf tenderness Back exam: Present: normal inspection Neurological exam: Present: alert, oriented X3, CN II-XII intact Psychiatric exam: Present: normal affect, normal mood Skin exam: Present: warm, dry, intact, normal color. Absent: rash Course Vital Signs 12/14/20 12/14/20 04:33 06:06 Temperature 98 F 97.9 F Pulse Rate 70 75 Respiratory 20 18 Rate Blood Pressure 137/83 126/79 O2 Sat by Pulse 100 98 Oximetry - Reevaluation(s) Reevaluation #1: Medical record is reviewed Patient symptoms are improved here in the emergency department Patient informed results questions are answered Patient feels comfortable for discharge home Medical Decision Making - Medical Decision Making 30 male to the ER presents for significant flank pain. Patient is positive kidney stone given pain control here in the urine can be discharged home - Lab Data Result diagrams: 12/14/20 04:58 12/14/20 04:58 Lab Results 12/14/20 12/14/20 12/14/20 Range/Units 04:58 04:58 04:58 WBC 8.2 (3.8-10.6) k/uL RBC 5.34 (4.30-5.90) m/uL Hgb 16.5 (13.0-17.5) gm/dL Hct 45.9 (39.0-53.0) % MCV 86.0 (80.0-100.0) fL MCH 30.9 (25.0-35.0) pg MCHC 36.0 (31.0-37.0) g/dL RDW 12.3 (11.5-15.5) % Plt Count 270 (150-450) k/uL MPV 7.2 Neutrophils % 51 % Lymphocytes % 31 % Monocytes % 7 % Eosinophils % 8 % Basophils % 2 % Neutrophils # 4.1 (1.3-7.7) k/uL Lymphocytes # 2.5 (1.0-4.8) k/uL Monocytes # 0.6 (0-1.0) k/uL Eosinophils # 0.7 (0-0.7) k/uL Basophils # 0.1 (0-0.2) k/uL Sodium 141 (137-145) mmol/L Potassium 4.6 (3.5-5.1) mmol/L Chloride 101 (98-107) mmol/L Carbon Dioxide 30 (22-30) mmol/L Anion Gap 10 mmol/L BUN 13 (9-20) mg/dL Creatinine 0.91 (0.66-1.25) mg/dL Est GFR (CKD-EPI)AfAm >90 (>60 ml/min/1.73 sqM) Est GFR (CKD-EPI)NonAf >90 (>60 ml/min/1.73 sqM) Glucose 115 H (74-99) mg/dL Calcium 9.9 (8.4-10.2) mg/dL Total Bilirubin 0.5 (0.2-1.3) mg/dL AST 23 (17-59) U/L ALT 27 (4-49) U/L Alkaline Phosphatase 73 (38-126) U/L Total Protein 8.1 (6.3-8.2) g/dL Albumin 4.7 (3.5-5.0) g/dL Amylase 112 H (30-110) U/L Lipase 448 H (23-300) U/L Urine Color Light Yellow Urine Appearance Clear (Clear) Urine pH 6.0 (5.0-8.0) Ur Specific [place] 1.009 (1.001-1.035) Urine Protein Negative (Negative) Urine Glucose (UA) Negative (Negative) Urine Ketones Negative (Negative) Urine Blood Moderate H (Negative) Urine Nitrite Negative (Negative) Urine Bilirubin Negative (Negative) Urine Urobilinogen <2.0 (<2.0) mg/dL Ur Leukocyte Esterase Negative (Negative) Urine RBC 21 H (0-5) /hpf Urine WBC <1 (0-5) /hpf Urine Mucus Rare H (None) /hpf - Radiology Data Radiology results: report reviewed (CT abdomen and pelvis is positive for kidney stone), image reviewed Disposition Clinical Impression: Kidney stone on left side Disposition: HOME SELF-CARE Condition: Good Instructions (If sedation given, give patient instructions): Kidney Stones (ED) Is patient prescribed a controlled substance at d/c from ED?: No Referrals: Buddy Alvarez MD [Primary Care Provider] - 1-2 days
[2020-12-14] MEDS ORDERED: TAMSULOSIN 0.4 MG CAP.ER.24H PO STA (05:45)
[2020-12-14] MEDS ORDERED: IBUPROFEN 800 MG TAB PO STA (05:45)
[2020-12-14] MEDS ORDERED: ACET/COD 300 MG/30 MG STARTER PACK 6 TAB BTL PO STA (05:45)
[2020-12-14 06:07] VITALS: BP 126/79; PULSE 75; RESP 18; TEMP 97.9
[2020-12-14 06:13] LABS: Appearance,Urine Clear (Clear); Bilirubin,Urine Negative (Negative); Blood,Urine Moderate (Negative); Color,Urine Light Yellow; Glucose,Urine (UA) Negative (Negative); Ketones,Urine Negative (Negative); Leukocyte Esterase,Urine Negative (Negative); Mucus,Urine Rare /hpf; Nitrite,Urine Negative (Negative); Protein,Urine Negative (Negative); RBC,Urine 21 /hpf (0-5); Specific Gravity,Urine 1.009 (1.001-1.035); Urobilinogen,Urine <2.0 mg/dL (<2.0); WBC,Urine <1 /hpf (0-5)
== END 2020-12-14 06:05 | disposition home or self-care (01) ==
LOC: EC 04:25
DX: N20.0 Calculus of kidney (principal); R10.32 Left lower quadrant pain; F17.200 Nicotine dependence, unspecified, uncomplicated; Z79.899 Other long term (current) drug therapy; Z88.5 Allergy status to narcotic agent; Z79.1 Long term (current) use of non-steroidal anti-inflammatories (NSAID); Z87.442 Personal history of urinary calculi
CPT/HCPCS: 99285 ×2; 96374 ×2; 96375 ×2; 96361 ×2; 36415; 80053; 82150; 83690; 85025; 81001; 74176; J1170; J1885

== ENCOUNTER → 2021-01-10 | Outpatient (CLI) | payer OTHER ==
--- NOTE | 2021-01-10 14:20 | XR ---
EXAMINATION TYPE: XR KUB DATE OF EXAM: 01/10/2021 COMPARISON: NONE HISTORY: Pain TECHNIQUE: One view abdominal series FINDINGS: The osseous structures are intact. The bowel gas pattern is nonspecific. No suspicious calcification s. IMPRESSION: 1. Nonspecific abdomen.
== END | disposition home or self-care (01) ==
LOC: RADXRMAIN 13:47
PROVIDERS: ATTEND Family Medicine
DX: N20.0 Calculus of kidney (principal)
CPT/HCPCS: 74018

== ENCOUNTER → 2021-01-17 | Outpatient (CLI) | payer OTHER ==
--- NOTE | 2021-01-17 22:51 | CT ---
EXAMINATION TYPE: CT abdomen pelvis wo con DATE OF EXAM: 01/17/2021 COMPARISON: 12/14/2020 INDICATION: right flank pain, hx of stones DLP: 1131.9 mGycm, Automated exposure control for dose reduction was used. CONTRAST: 0 mL of Isovue 300. Study performed without Oral Contrast TECHNIQUE: Axial images were obtained from above the diaphragm to the pubic rami in the axial plane a t 5 mm thick sections. Reconstructed images are reviewed on the computer in the coronal plane. FINDINGS: Limited CT sections are obtained the lung bases. The lung bases are clear. CT ABDOMEN: Liver: Normal Spleen: Normal Pancreas: Normal Adrenal glands: The adrenal glands are normal. Gallbladder: Normal Kidneys: No masses are evident. No hydronephrosis is present. No cysts are present. No renal stone s are evident. No ureteral dilatation is evident. Aorta: Normal Inferior vena cava: Normal. CT PELVIS: Loops of bowel within the abdomen and pelvis are normal. The study is performed without oral cont rast limiting evaluation. Appendix: Normal as visualized. Urinary bladder: Normal. Genitourinary structures: Prostate is normal. Osseous structures: No suspicious lytic or sclerotic lesions. IMPRESSIONS: 1. Normal noncontrast CT abdomen and pelvis.
== END ==
LOC: RADCTMAIN 17:21
PROVIDERS: ATTEND Family Medicine
DX: R10.9 Unspecified abdominal pain (principal)
CPT/HCPCS: 74176

== ENCOUNTER → 2021-01-19 | Outpatient (CLI) | payer OTHER ==
--- NOTE | 2021-01-19 15:43 | US ---
EXAMINATION TYPE: US scrotum with doppler. Grayscale and color Doppler Duplex imaging performed of blanca bass scrotum. DATE OF EXAM: 01/19/2021 COMPARISON: NONE CLINICAL HISTORY: N50.812 left testicular pain. EXAM MEASUREMENTS: TESTICLES: Right Testicle: 5.8 x 2.5 x 3.3 cm Left Testicle: 4.3 x 2.4 x 3.7 cm EPIDIDYMIS HEAD: Right Epididymis: 1.1 x 0.8 cm Left Epididymis: 1.0 x 0.5 cm Doppler performed to assess for testicular vascularity; good bilateral color flow and waveforms are s een. There is no evidence of testicular torsion. Presence of hydroceles: not appreciated. Presence of varicoceles: tubular structures noted posterior to right testicle, unable to prove incre ased flow with valsalva. IMPRESSION: 1. No testicular torsion. 2. There may be some vascular structures posterior to the right testicle. Consider follow-up.
== END | disposition home or self-care (01) ==
LOC: RADUSWWP 14:57
PROVIDERS: ATTEND Family Medicine
DX: N50.812 Left testicular pain (principal)
CPT/HCPCS: 76870; 93975

== ENCOUNTER → 2021-11-30 | Outpatient (CLI) | payer OTHER ==
--- NOTE | 2021-11-30 18:05 | XR ---
EXAMINATION TYPE: XR abdomen complete w decub DATE OF EXAM: 11/30/2021 COMPARISON: 01/10/2021 HISTORY: 31-year-old male R10.32 LEFT LOWER QUAD PAIN TECHNIQUE: Supine, upright, and left side down lateral decubitus views of the abdomen are obtained. FINDINGS: Lung bases are clear. No evidence for free intraperitoneal air. No dilated small bowel or air-fluid levels. Scattered air is present within the colon. No significant stool burden. No suspicious calcifications are seen. Small air-fluid levels in the right side of the colon. IMPRESSION: No evidence for free air or bowel obstruction. No significant stool burden. There are small air-fluid levels in the right side of the colon suggesting liquid stool that could relate to ileus or enteriti s.
== END | disposition home or self-care (01) ==
LOC: RADXRMAIN 08:47
PROVIDERS: ATTEND Nurse Practitioner Family
DX: R10.32 Left lower quadrant pain (principal)
CPT/HCPCS: 74021

== ENCOUNTER → 2022-04-11 | Outpatient (CLI) | payer OTHER ==
[2022-04-11 23:02] LABS: Basophils # (A) 0.09 X 10*3/uL (0.00-0.10); Basophils % (A) 1.2 %; Eosinophils # (A) 0.44 X 10*3/uL (0.04-0.35); HCT 47.4 % (39.6-50.0); HGB 15.2 g/dL (13.0-17.0); Immature Grans, Automated 0.3 %; Lymphocytes # (A) 1.94 X 10*3/uL (0.90-5.00); Lymphocytes % (A) 26.6 %; MCH 29.1 pg (27.0-32.0); MCHC 32.1 g/dL (32.0-37.0); MCV 90.6 fL (80.0-97.0); Mean Platelet Volume 11.6 fL (9.5-12.2); Monocytes % (A) 6.8 %; NRBC Per 100 WBC 0 /100 WBCS (0.0-0.0); Neutrophils # (A) 4.31 X 10*3/uL (1.80-7.70); Neutrophils % (A) 59.1 %; Platelet Count 219 X 10*3/uL (140-440); RBC 5.23 X 10*6/uL (4.40-5.60)
[2022-04-11 23:51] LABS: ALT 35 U/L (10-49); AST 20 U/L (14-35); African American GFR (CKD) 118.5 (60.0-200.0); Albumin 4.8 g/dL (3.8-4.9); Albumin/Globulin Ratio 1.82 (1.60-3.17); Alkaline Phosphatase 59 U/L (41-126); BUN/Creat Ratio 10.29 Ratio (12.00-20.00); Calcium 10.3 mg/dL (8.7-10.3); Carbon Dioxide 27.4 mmol/L (20.0-27.5); Chloride 101 mmol/L (96-109); Chol/HDL Ratio 6.16 Ratio; Globulin 2.6 g/dL (1.6-3.3); Glucose 109 mg/dL (70-110); LDL Cholesterol,Calculated 89.7 mg/dL (0.0-131.0); Non-African American GFR(CKD) 102.3 (60.0-200.0); Potassium 4.3 mmol/L (3.5-5.5); Sodium 139 mmol/L (135-145); Total Protein 7.4 g/dL (6.2-8.2)
== END | disposition home or self-care (01) ==
LOC: LABWHC1 08:39
PROVIDERS: ATTEND Nurse Practitioner Psychiatric/Mental Health
DX: F31.5 Bipolar disorder, current episode depressed, severe, with psychotic features (principal); Z79.899 Other long term (current) drug therapy
CPT/HCPCS: 36415; 80053; 80061; 80178; 83036; 84439; 84443; 85025

== ENCOUNTER → 2022-12-20 | Outpatient (CLI) | payer OTHER | END | disposition home or self-care (01) | LOC: LABWHC1 08:28 | PROVIDERS: ATTEND Psychiatry & Neurology Psychiatry | DX: Z79.899 Other long term (current) drug therapy (principal) | CPT/HCPCS: 36415; 80178 ==

== ENCOUNTER 2023-06-13 13:44 | Emergency (ER) | payer OTHER ==
[2023-06-13] MEDS ORDERED: KETOROLAC 15 MG/ML 1 ML VIAL IM STA (15:10)
--- NOTE | 2023-06-13 15:17 | ED ---
Recheck HPI - General Chief Complaint: Recheck/Abnormal Lab/Rx Stated Complaint: Hemmoriod Pain Time Seen by Provider: 06/13/23 14:47 Source: patient, RN notes reviewed Mode of arrival: ambulatory Limitations: no limitations - History of Present Illness Initial Comments: Patient is a 32-year-old male presenting to the emergency room with complaints of rectal pain which she reports are due to hemorrhoids that he states are not bleeding. He reports using external topical hemorrhoid cream without any relief. He has not done any sitz baths. He denies any abdominal pain, nausea, vomiting, fevers or chills. He has a past medical history significant for kidney stones, pleurisy and umbilical hernia. - Related Data Home Medications Medication Instructions Recorded Confirmed Dicyclomine HCl 20 mg PO QID 09/17/20 10/23/20 Acetaminophen Tab [Tylenol Tab] 500 mg PO Q6H PRN 10/23/20 10/23/20 Ibuprofen [Motrin Ib] 600 mg PO Q8H PRN 10/23/20 10/23/20 Previous Rx's Medication Instructions Recorded Hydrocortisone Suppository 25 mg RECTAL BID 5 Days #10 06/13/23 [Anusol-Hc] suppositor Allergies Allergy/AdvReac Type Severity Reaction Status Date / Time morphine Allergy Chest Pain Verified 06/13/23 14:43 Review of Systems ROS Statement: Those systems with pertinent positive or pertinent negative responses have been documented in the HPI. ROS Other: All systems not noted in ROS Statement are negative. Past Medical History Additional Past Medical History / Comment(s): kidney stones, pleurisy, umbilical hernia History of Any Multi-Drug Resistant Organisms: None Reported Past Surgical History: No Surgical Hx Reported Past Psychological History: Anxiety, Bipolar, Depression Smoking Status: Current every day smoker Past Alcohol Use History: None Reported Past Drug Use History: None Reported, Marijuana General Exam Limitations: no limitations General appearance: alert, in no apparent distress Head exam: Present: atraumatic, normocephalic, normal inspection Eye exam: Present: normal appearance, PERRL, EOMI. Absent: scleral icterus, conjunctival injection, periorbital swelling ENT exam: Present: normal exam, mucous membranes moist Neck exam: Present: normal inspection, full ROM Respiratory exam: Absent: respiratory distress, accessory muscle use Cardiovascular Exam: Present: regular rate GI/Abdominal exam: Present: soft. Absent: distended, tenderness, guarding, rebound, rigid Rectal exam: Present: normal rectal tone, hemorrhoids (internal without bleeding), tenderness. Absent: bloody stool, fecal impaction, mass Extremities exam: Present: normal inspection. Absent: pedal edema, joint swelling Back exam: Present: normal inspection Neurological exam: Present: alert, oriented X3, CN II-XII intact Psychiatric exam: Present: normal affect, normal mood Skin exam: Present: warm, dry, intact, normal color. Absent: rash Course Vital Signs 06/13/23 06/13/23 14:44 16:12 Temperature 98.3 F 97.9 F Pulse Rate 80 76 Respiratory 18 16 Rate Blood Pressure 139/88 118/83 O2 Sat by Pulse 96 97 Oximetry Medical Decision Making - Medical Decision Making Was pt. sent in by a medical professional or institution (, PA, PRODUCTION CONTROLLER, urgent care, hospital, or retirement...) When possible be specific @ -No Did you speak to anyone other than the patient for history (EMS, parent, family, police, friend...)? What history was obtained from this source @ -No Did you review nursing and triage notes (agree or disagree)? Why? @ -I reviewed and agree with nursing and triage notes Were old charts reviewed (outside hosp., previous admission, EMS record, old EKG, old radiological studies, urgent care reports/EKG's, retirement records)? Report findings @ -No old charts were reviewed Differential Diagnosis (chest pain, altered mental status, abdominal pain women, abdominal pain men, vaginal bleeding, weakness, fever, dyspnea, syncope, headache, dizziness, GI bleed, back pain, seizure, CVA, palpatations, mental health, musculoskeletal)? @ -Differential rectal pain: Anal fissure, hemorrhoids, perianal abscess, rectal abscess, fecal impaction, this is not meant to be an all-inclusive list EKG interpreted by me (3pts min.). @ -None done X-rays interpreted by me (1pt min.). @ -None done CT interpreted by me (1pt min.). @ -None done U/S interpreted by me (1pt. min.). @ -None done What testing was considered but not performed or refused? (CT, X-rays, U/S, labs)? Why? @ -None What meds were considered but not given or refused? Why? @ -None Did you discuss the management of the patient with other professionals (professionals i.e. , PA, PRODUCTION CONTROLLER, lab, RT, psych nurse, social work associate, polymer chemist, teacher, giving officer, nurse case management)? Give summary @ -No Was smoking cessation discussed for >3mins.? @ -No Was critical care preformed (if so, how long)? @ -No Were there social determinants of health that impacted care today? How? (Homelessness, low income, unemployed, alcoholism, drug addiction, tr ansportation, low edu. Level, literacy, decrease access to med. care, alf, rehab)? @ -No Was there de-escalation of care discussed even if they declined (Discuss DNR or withdrawal of care, Hospice)? DNR status @ -No What co-morbidities impacted this encounter? (DM, HTN, Smoking, COPD, CAD, Cancer, CVA, ARF, Chemo, Hep., AIDS, mental health diagnosis, sleep apnea, morbid obesity)? @ -None Was patient admitted / discharged? Hospital course, mention meds given and route, prescriptions, significant lab abnormalities, going to OR and other pertinent info. @ -32-year-old male presenting to the emergency room with complaints of rectal pain which she reports are due to hemorrhoids that he states are not bleeding. He reports using external topical hemorrhoid cream without any relief. Exam reveals moderately inflamed internal hemorrhoids with no evidence of external hemorrhoids or anal fissure. Significant pain noted will give Toradol IM for pain and monitor. No indication for any diagnostic imaging or laboratory studies. Pain improved with Toradol. Advised topical primary cream not likely effective due to location of hemorrhoids. Education regarding internal hemorrhoids discussed. Encouraged avoidance of constipation with stool softener, use of anusol suppositories to treat internal hemorrhoids and use of sitz baths if needed. Questions and concerns answered. Return parameters to the emergency room discussed. Will discharge home in stable condition with prescription for hydrocortisone suppositories advising sitz baths and follow-up with primary care provider for internal hemorrhoids. Undiagnosed new problem with uncertain prognosis? @ -No Drug Therapy requiring intensive monitoring for toxicity (Heparin, Nitro, Insulin, Cardizem)? @ -No Were any procedures done? @ -No Diagnosis/symptom? @ -Internal hemorrhoids Acute, or Chronic, or Acute on Chronic? @ -Acute on chronic Uncomplicated (without systemic symptoms) or Complicated (systemic symptoms)? @ -Uncomplicated Side effects of treatment? @ -No Exacerbation, Progression, or Severe Exacerbation? @ -Exacerbation Poses a threat to life or bodily function? How? (Chest pain, [place], [place], pneumonia, PE, COPD, DKA, ARF, appy, cholecystitis, CVA, Diverticulitis, Homicidal, Suicidal, threat to staff... and all critical care pts) @ -No Case discussed with Dr. Evans Disposition Clinical Impression: Hemorrhoids, internal Disposition: HOME SELF-CARE Condition: Stable Instructions (If sedation given, give patient instructions): Hemorrhoids (DC) Additional Instructions: Utilize Anusol suppositories as prescribed. May also continue to apply topical external hydrocortisone cream as needed. Continue stool softeners. Weight loss and high-fiber diet encouraged. Sitz bath may help reduce some of your rectal pain. Please follow-up with your primary care provider. Please return to the Emergency Department if symptoms worsen or any other concerns. Prescriptions: Hydrocortisone Suppository [Anusol-Hc] 25 mg RECTAL BID 5 Days #10 suppositor Is patient prescribed a controlled substance at d/c from ED?: No Referrals: Buddy Alvarez MD [Primary Care Provider] - 1-2 days Time of Disposition: 15:16
[2023-06-13 16:14] VITALS: BP 118/83; PULSE 76; RESP 16; TEMP 97.9
== END 2023-06-13 16:14 | disposition home or self-care (01) ==
LOC: EC 13:44
DX: K64.8 Other hemorrhoids (principal); F12.90 Cannabis use, unspecified, uncomplicated; F17.200 Nicotine dependence, unspecified, uncomplicated; Z88.5 Allergy status to narcotic agent; Z86.59 Personal history of other mental and behavioral disorders
CPT/HCPCS: 99283; 96372; J1885

== ENCOUNTER → 2023-09-17 | Outpatient (CLI) | payer OTHER ==
[2023-09-17 11:00] LABS: Basophils # (A) 0.07 X 10*3/uL (0.00-0.10); Basophils % (A) 1.1 %; Eosinophils # (A) 0.45 X 10*3/uL (0.04-0.35); Eosinophils % (A) 7.2 %; HCT 43.2 % (39.6-50.0); HGB 15.2 d/dL (13.0-17.0); Lymphocytes # (A) 1.53 X 10*3/uL (0.90-5.00); Lymphocytes % (A) 24.6 %; MCH 30.5 pg (27.0-32.0); MCHC 35.2 d/dL (32.0-37.0); MCV 86.7 FL (80.0-97.0); Mean Platelet Volume 11.5 FL (9.5-12.2); Monocytes # (A) 0.45 X 10*3/uL (0.20-1.00); Monocytes % (A) 7.2 %; NRBC Per 100 WBC 0 X 10*3/uL (0.00-0.01); Neutrophils # (A) 3.71 X 10*3/uL (1.80-7.70); Neutrophils % (A) 59.7 %; Platelet Count 240 X 10*3/uL (140-440); RBC 4.98 X 10*6/uL (4.40-5.60); RDW 12.1 % (11.5-14.5); WBC 6.22 X 10*3/uL (4.50-10.00)
[2023-09-17 16:25] LABS: ALT 18 U/L (10-49); AST 14 U/L (14-35); Albumin 4.8 d/dL (3.8-4.9); Albumin/Globulin Ratio 1.85 Ratio (1.60-3.17); Alkaline Phosphatase 61 U/L (41-126); Blood Urea Nitrogen 7.2 mg/dL (9.0-27.0); Calcium 10.1 mg/dL (8.7-10.3); Chloride 103 mmol/L (96-109); Chol/HDL Ratio 5.17 Ratio; Globulin 2.6 d/dL (1.6-3.3); Glucose 104 mg/dL (70-110); LDL Cholesterol,Calculated 88.1 mg/dL (0.0-131.0); Potassium 4.3 mmol/L (3.5-5.5); Sodium 139 mmol/L (135-145); Total Bilirubin 0.3 mg/dL (0.3-1.2); Total Protein 7.4 d/dL (6.2-8.2)
== END | disposition home or self-care (01) ==
LOC: LABWHC1 08:22
PROVIDERS: ATTEND Psychiatry & Neurology Psychiatry
DX: E78.5 Hyperlipidemia, unspecified (principal); Z79.899 Other long term (current) drug therapy
CPT/HCPCS: 36415; 80053; 80061; 80178; 84439; 84443; 85025

== ENCOUNTER 2024-06-26 13:26 | Inpatient (IN) | payer MEDICAID, OTHER ==
[2024-06-26] MEDS ORDERED: ACETAMINOPHEN TAB 500 MG TAB ONE (14:01)
[2024-06-26] MEDS ORDERED: LORazepam 1 MG TAB ONE (15:15)
[2024-06-27] MEDS ORDERED: ACETAMINOPHEN TAB 325 MG TAB ONE (01:55)
[2024-06-27] MEDS ORDERED: QUEtiapine 50 MG TAB ONE (23:18)
[2024-06-27] MEDS ORDERED: LITHIUM CARBONATE 300 MG CAP ONE (23:18)
[2024-06-28] MEDS ORDERED: NICOTINE 14MG/24HR PATCH TRANSDERM ONE (08:02)
[2024-06-28] MEDS ORDERED: LITHIUM CARBONATE ER 450 MG TABLET.ER PO ONE (20:36)
[2024-06-28] MEDS ORDERED: busPIRone HCl 5 MG TAB ONE (20:36)
[2024-06-28] MEDS ORDERED: busPIRone HCl 10 MG TAB ONE (20:37)
[2024-06-28] MEDS ORDERED: traMADol 50 MG TAB ONE (20:37)
[2024-06-28] MEDS ORDERED: traZODone HCL 50 MG TAB ONE (20:38)
[2024-06-28] MEDS ORDERED: HYDROCORTISONE 1% CREAM 30 GM TUBE TOPICAL ONE (23:59)
[2024-06-29] MEDS ORDERED: INSULIN ASPART (NovoLOG) 100 UNIT/ML VIAL SQ ONE (07:46)
[2024-06-29] MEDS ORDERED: busPIRone HCl 10 MG TAB ONE ×2 (09:03→20:20)
[2024-06-29] MEDS ORDERED: busPIRone HCl 5 MG TAB ONE ×2 (09:03→20:20)
[2024-06-29] MEDS ORDERED: LITHIUM CARBONATE ER 450 MG TABLET.ER PO ONE (20:19)
[2024-06-29] MEDS ORDERED: traZODone HCL 100 MG TAB ONE (20:20)
[2024-06-30] MEDS ORDERED: busPIRone HCl 5 MG TAB ONE ×3 (08:02→19:45)
[2024-06-30] MEDS ORDERED: traZODone HCL 100 MG TAB ONE (19:45)
[2024-06-30] MEDS ORDERED: LITHIUM CARBONATE ER 450 MG TABLET.ER PO ONE (19:46)
[2024-07-01] MEDS ORDERED: busPIRone HCl 5 MG TAB ONE ×2 (07:53→19:49)
[2024-07-01] MEDS ORDERED: traZODone HCL 100 MG TAB ONE (19:49)
[2024-07-01] MEDS ORDERED: busPIRone HCl 10 MG TAB ONE (19:49)
[2024-07-01] MEDS ORDERED: LITHIUM CARBONATE ER 450 MG TABLET.ER PO ONE (19:49)
[2024-07-02] MEDS ORDERED: busPIRone HCl 5 MG TAB ONE (08:09)
[2024-07-02] MEDS ORDERED: busPIRone HCl 10 MG TAB ONE (08:09)
== END 2024-07-02 12:08 | disposition home or self-care (01) | DRG 753 ==
LOC: UNDOADMIN 13:26 → 3MHU 13:26 → UNDOADMIN 06-27 22:06 → 3MHU 06-27 22:06 → UNDODISIN 07-02 12:08
PROVIDERS: ADMIT Psychiatry & Neurology Psychiatry; ATTEND Psychiatry & Neurology Psychiatry
DX: F31.9 Bipolar disorder, unspecified (principal); R45.851 Suicidal ideations; F12.10 Cannabis abuse, uncomplicated; T88.7XXA Unspecified adverse effect of drug or medicament, initial encounter; T43.595A Adverse effect of other antipsychotics and neuroleptics, initial encounter; F17.200 Nicotine dependence, unspecified, uncomplicated; F41.9 Anxiety disorder, unspecified; G47.00 Insomnia, unspecified; F51.3 Sleepwalking [somnambulism]; Z79.899 Other long term (current) drug therapy
CPT/HCPCS: 99285

== ENCOUNTER → 2024-11-12 | Outpatient (CLI) | payer OTHER ==
[2024-11-12 15:22] LABS: Basophils # (A) 0.06 X 10*3/uL (0.00-0.10); Basophils % (A) 0.8 %; Eosinophils # (A) 0.19 X 10*3/uL (0.04-0.35); Eosinophils % (A) 2.5 %; HCT 43.2 % (39.6-50.0); HGB 14.5 g/dL (13.0-17.0); Lymphocytes # (A) 1.93 X 10*3/uL (0.90-5.00); Lymphocytes % (A) 25.4 %; MCH 29.5 pg (27.0-32.0); MCHC 33.6 g/dL (32.0-37.0); MCV 87.8 FL (80.0-97.0); Mean Platelet Volume 10.6 FL (9.5-12.2); Monocytes # (A) 0.49 X 10*3/uL (0.20-1.00); Monocytes % (A) 6.5 %; NRBC Per 100 WBC 0 X 10*3/uL (0.00-0.01); Neutrophils % (A) 64.5 %; Platelet Count 279 X 10*3/uL (140-440); RBC 4.92 X 10*6/uL (4.40-5.60); RDW 11.8 % (11.5-14.5); WBC 7.59 X 10*3/uL (4.50-10.00)
[2024-11-12 16:13] LABS: ALT 18 U/L (10-49); AST 14 U/L (14-35); Albumin 4.5 g/dL (3.8-4.9); Albumin/Globulin Ratio 1.67 Ratio (1.60-3.17); Alkaline Phosphatase 71 U/L (41-126); BUN/Creat Ratio 11.11 Ratio (12.00-20.00); Calcium 9.8 mg/dL (8.7-10.3); Carbon Dioxide 25.8 mmol/L (21.6-31.8); Chloride 103 mmol/L (96-109); Chol/HDL Ratio 4.85 Ratio; Globulin 2.7 g/dL (1.6-3.3); Glucose 110 mg/dL (70-110); LDL Cholesterol,Calculated 138.5 mg/dL (0.0-131.0); Magnesium 2.1 mg/dL (1.5-2.4); Potassium 4.4 mmol/L (3.5-5.5); Sodium 140 mmol/L (135-145); Total Bilirubin 0.3 mg/dL (0.3-1.2); Total Protein 7.2 g/dL (6.2-8.2)
== END | disposition home or self-care (01) ==
LOC: LABWHC1 08:11
PROVIDERS: ATTEND Nurse Practitioner Family
DX: E78.5 Hyperlipidemia, unspecified (principal); R79.9 Abnormal finding of blood chemistry, unspecified; R53.83 Other fatigue
CPT/HCPCS: 36415; 80053; 80061; 82306; 83036; 83735; 84443; 85025

== ENCOUNTER → 2024-12-03 | Outpatient (CLI) | payer OTHER ==
[2024-12-03 16:51] LABS: Basophils # (A) 0.07 X 10*3/uL (0.00-0.10); Eosinophils # (A) 0.26 X 10*3/uL (0.04-0.35); Eosinophils % (A) 3.6 %; Lymphocytes # (A) 1.96 X 10*3/uL (0.90-5.00); Lymphocytes % (A) 27.4 %; MCH 29.4 pg (27.0-32.0); MCHC 32.6 g/dL (32.0-37.0); Mean Platelet Volume 11.4 FL (9.5-12.2); Monocytes # (A) 0.44 X 10*3/uL (0.20-1.00); Monocytes % (A) 6.1 %; NRBC Per 100 WBC 0 X 10*3/uL (0.00-0.01); Neutrophils # (A) 4.41 X 10*3/uL (1.80-7.70); Neutrophils % (A) 61.6 %; Platelet Count 222 X 10*3/uL (140-440); RBC 5.11 X 10*6/uL (4.40-5.60); RDW 12.6 % (11.5-14.5); WBC 7.16 X 10*3/uL (4.50-10.00)
== END | disposition home or self-care (01) ==
LOC: LABPAT 07:56
PROVIDERS: ATTEND Surgery
DX: Z01.818 Encounter for other preprocedural examination (principal); K42.9 Umbilical hernia without obstruction or gangrene
CPT/HCPCS: 85025; 86850; 86900; 86901; 93005

== ENCOUNTER → 2024-12-08 | Day surgery (SDC) | payer OTHER ==
[~2024-12-08] MED LIST: DEXAMETHASONE SOD PHOSPHATE 4 MG/ML 1 ML VIAL ONE; GLYCOPYRROLATE 0.2 MG/ML 2 ML VIAL ONE; HYDROmorphone (PF) 1 MG/ML ONE; KETOROLAC 15 MG/ML 1 ML VIAL ONE; LIDOCAINE 1% (10MG/ML) FOR IV START INTRADERMA PRN; LIDOCAINE 1% INJ 10MG/ML (20 ML MDV) ONE; LIDOCAINE 4% LTA KIT (4 ML) TOPICAL ONE; MIDAZOLAM 2 MG/2 ML VIAL ONE; NEOSTIGMINE 1 MG/ML 10 ML VIAL ONE; PHENYLEPHRINE 10 MG/ML VIAL ONE; PROPOFOL 10 MG/ML 20 ML VIAL IV ONE; ROCURONIUM 10 MG/ML (5 ML VIAL) IV ONE; ROPIVACAINE 5 MG/ML 30 ML VIAL ONE; SUCCINYLCHOLINE CHLORIDE 200 MG/10 ML VIAL IV ONE; droPERidol 5 MG/2 ML VIAL IVP ONE; fentaNYL (PF) 50 MCG/ML 2 ML AMP ONE
[2024-12-08] MEDS: IV FLUID CONTINUATION 1,000 ML IV ONE ×2 (09:18→11:26)
[2024-12-08] MEDS: DEXAMETHASONE SOD PHOSPHATE 4 MG/ML 1 ML VIAL IV ONE (09:19)
[2024-12-08] MEDS: MIDAZOLAM 2 MG/2 ML VIAL IV ONE (09:20)
[2024-12-08] MEDS: LACTATED RINGERS 1,000 ML IV SCH (09:20)
[2024-12-08] MEDS: ONDANSETRON 4 MG/2 ML VIAL IVP ONE (09:20)
[2024-12-08] MEDS: ACETAMINOPHEN TAB 500 MG TAB PO PRN (09:22)
[2024-12-08] MEDS: fentaNYL (PF) 50 MCG/ML 2 ML AMP IVP ONE (09:25)
[2024-12-08] MEDS: HEPARIN SODIUM,PORCINE 5,000 UNIT/ML 1 ML VIAL SQ PRN (09:39)
--- NOTE | 2024-12-08 09:42 | P.ANPRN ---
Procedure Note - Anesthesia - Nerve Block Performed Bilateral Erector Spinae Single Time Out Performed: Yes Date of Procedure: 12/08/24 Procedure Start Time: Procedure Stop Time: Location of Patient: PreOp Indication: Acute Post-Operative Pain, Analgesia, Requested by Surgeon Sedation Type: Sedate with meaningful contact maintained Preparation: Sterile Prep Position: Prone Catheter: None Needle Types: Pajunk Needle Gauge: 21 Ultrasound used to visualize needle placement: Yes Ultrasound used to observe medication spread: Yes Injectate: 0.5% Ropivacaine (see comment for volume) (Ropiv 20ml_Decadron4mg, needle level I42---Gakx side.) Blood Aspirated: No Pain Paresthesia on Injection Noted: No Resistance on Injection: Normal Image Stored and Saved: Yes Events: Uneventful and Well Tolerated
[2024-12-08] MEDS: BUPIVACAINE (PF) 0.25% 30 ML VIAL SQ ONE (10:20)
[2024-12-08] MEDS: LACTATED RINGERS 1,000 ML IV ONE (11:05)
[2024-12-08 11:33] VITALS: TEMP 98.6
--- NOTE | 2024-12-08 11:39 | P.OP ---
Date of Procedure: 12/08/24 Preoperative Diagnosis: Right inguinal hernia Umbilical hernia Postoperative Diagnosis: Hernia Umbilical hernia Procedure(s) Performed: Laparoscopic robotic repair of right inguinal hernia Laparoscopic periumbilical hernia Transversus abdominis plane block Excision of right cord lipoma Anesthesia: TENZIN Surgeon: Cb Ferris Estimated Blood Loss (ml): 5 Pathology: other (Right cord lipoma) Condition: stable Disposition: PACU Description of Procedure: M the patient's placed on the operating table in the supine position. The patient received general anesthesia. The patient's abdomen was prepped and draped in usual sterile fashion. The skin was anesthetized 1% local Xylocaine at the incision sites. Using an 11 blade a skin incision was made at the umbilicus. The fascia was grasped with a Bere and then the peritoneal cavity was entered with the Veress needle. Position of the Veress needle was confirmed with a positive drop test. After adequate insufflation a 5 mm trocar was placed into the peritoneal cavity. The Laparoscope was placed the peritoneal cavity. And a robotic 8 mm trocar was placed in the right lateral position and then another 8 mm robotic trochars placed in the left lateral position. The original 5 mm trocar was exchanged for a 12 mm trocar. A four-quadrant transversus abdominis plane block was performed with 1% local Xylocaine. The patient was placed in reverse Trendelenburg and then the patient was docked to the robot. Next the peritoneum over top of the hernia was incised and then using blunt and sharp dissection and electrocautery the hernia sac was dissected free from the floor of the inguinal canal. The cord lipoma was dissected free and sent to pathology. The hernia sac was completely reduced into the peritoneal cavity. And then using the Pro senior sales operations manager mesh the hernia was repaired. The peritoneum was then sutured with 20V lock suture. The camera is then positioned in the left lateral port site. The umbilical trocar was withdrawn. The fascial defect of umbilical hernia was then closed using [id number] 0 Ethibond suture passed with a Wilmer Kay suture passer. The patient was then undocked the robot. The needle was withdrawn from the peritoneal cavity. The umbilical trocar site was closed with 0 Ethibond suture. The skin was closed interrupted 3-0 Monocryl suture. Dermabond dressing was applied. Patient was sent to recovery in stable condition.
[2024-12-08] MEDS: fentaNYL (PF) 50 MCG/ML 2 ML AMP IV PRN (11:57)
[2024-12-08 13:16] VITALS: RESP 14
[2024-12-08 13:33] VITALS: BP 125/74; PULSE 67
== END ==
LOC: OR 06:30
PROVIDERS: ATTEND Surgery
DX: K40.90 Unilateral inguinal hernia, without obstruction or gangrene, not specified as recurrent (principal); K42.9 Umbilical hernia without obstruction or gangrene; U07.0 Vaping-related disorder; F41.9 Anxiety disorder, unspecified; F31.30 Bipolar disorder, current episode depressed, mild or moderate severity, unspecified; F43.10 Post-traumatic stress disorder, unspecified; Z87.442 Personal history of urinary calculi; Z87.09 Personal history of other diseases of the respiratory system; Z88.5 Allergy status to narcotic agent; Z79.899 Other long term (current) drug therapy
CPT/HCPCS: 49591; 49650; S2900; 64999

== ENCOUNTER 2025-01-07 17:26 | Emergency (ER) | payer OTHER ==
[2025-01-07 17:46] VITALS: RESP 18; TEMP 98
--- NOTE | 2025-01-07 19:07 | ED ---
Chest Pain HPI - General Chief Complaint: Chest Pain Stated Complaint: chest pain,ELOINA Time Seen by Provider: 01/07/25 18:30 Source: patient Mode of arrival: ambulatory Limitations: no limitations - History of Present Illness Initial Comments: This patient is a 34-year-old man who presents to have evaluation of tightness across his chest that has been going on for days now. He has also been having some facial numbness bilaterally and tingling to the hands. Patient has not had fever or chills. No cough. No nausea, vomiting, dyspnea, diaphoresis, p alpitations or syncope. MD Complaint: chest pain -: days(s) Onset: during rest Pain Location: left chest, right chest Pain Radiation: none Severity: moderate Quality: tightness Consistency: constant Improves With: nothing Worsens With: nothing - Related Data Home Medications Medication Instructions Recorded Confirmed Acetaminophen Tab [Tylenol Tab] 500 mg PO Q6H PRN 10/23/20 12/08/24 Ergocalciferol [Vitamin D2 (1250 1,250 mcg PO WEEKLY 12/06/24 12/08/24 Mcg = 96006 Iu)] [place] Carbonate [[place] 450 mg PO HS 12/06/24 12/08/24 Carbonate ER] busPIRone HCL 15 mg PO BID 12/06/24 12/08/24 traZODone HCL 200 mg PO HS 12/06/24 12/08/24 Previous Rx's Medication Instructions Recorded Acetaminophen Tab [Tylenol] 650 mg PO Q6H #30 tab 12/08/24 Docusate [Colace] 100 mg PO BID #20 capsule 12/08/24 Ibuprofen [Motrin] 600 mg PO Q6HR PRN #40 tab 12/08/24 oxyCODONE HCL [OxyIR] 5 mg PO Q6H PRN 3 Days #10 tab 12/08/24 Allergies Allergy/AdvReac Type Severity Reaction Status Date / Time morphine Allergy Chest Pain Verified 01/07/25 17:45 Review of Systems ROS Statement: Those systems with pertinent positive or pertinent negative responses have been documented in the HPI. ROS Other: All systems not noted in ROS Statement are negative. Constitutional: Denies: fever, chills, weakness Respiratory: Denies: cough, dyspnea, wheezes Cardiovascular: Reports: as per HPI, chest pain. Denies: palpitations, edema, syncope Gastrointestinal: Denies: abdominal pain, nausea, vomiting Genitourinary: Denies: dysuria, hematuria Musculoskeletal: Denies: back pain Skin: Denies: rash Neurological: Reports: paresthesias. Denies: headache, weakness, numbness Psychiatric: Reports: anxiety EKG Findings - EKG Results: EKG: interpreted by ERMD, sinus rhythm (Rate 67 bpm), normal axis, normal ST/T - Blocks, [place], Hypertrophy, ST Abn: AV and intraventricular conduction: right bundle branch block (fixed/intermittent, complete/incomplete) (Incomplete right bundle branch block) Past Medical History Additional Past Medical History / Comment(s): HX kidney stones, pleurisy, umbilical hernia. Rt inguinal hernia History of Any Multi-Drug Resistant Organisms: None Reported Past Surgical History: Hernia Repair Additional Past Anesthesia/Blood Transfusion Reaction / Comment(s): no anesthesia hx Past Psychological History: Anxiety, Bipolar, Depression, PTSD Smoking Status: Vaper Past Alcohol Use History: None Reported Past Drug Use History: Marijuana - Past Family History Mother Family Medical History: No Reported History General Exam Limitations: no limitations General appearance: alert, in no apparent distress Head exam: Present: atraumatic, normocephalic Eye exam: Present: normal appearance. Absent: scleral icterus, conjunctival injection ENT exam: Present: normal oropharynx Neck exam: Present: normal inspection Respiratory exam: Present: normal lung sounds bilaterally. Absent: respiratory distress, wheezes, rales, rhonchi, stridor, accessory muscle use Cardiovascular Exam: Present: regular rate, normal rhythm, normal heart sounds. Absent: systolic murmur, diastolic murmur, rubs, gallop GI/Abdominal exam: Present: soft. Absent: distended, tenderness, guarding, rebound, rigid, mass Extremities exam: Present: normal inspection, normal capillary refill. Absent: pedal edema, calf tenderness Back exam: Present: normal inspection. Absent: CVA tenderness (R), CVA tenderness (L) Neurological exam: Present: alert, CN II-XII intact. Absent: motor sensory deficit Skin exam: Present: warm, dry, intact, normal color. Absent: rash Course Vital Signs 01/07/25 01/07/25 17:41 20:37 Temperature 98 F Pulse Rate 76 72 Respiratory 18 18 Rate Blood Pressure 137/87 131/87 O2 Sat by Pulse 99 99 Oximetry Chest Pain MDM - MDM The patient had chest x-ray that I interpreted as negative for acute infiltrate, pneumothorax, congestive heart failure Was pt. sent in by a medical professional or institution (TRUDY Resendez, SCOREBOARD OPERATOR, urgent care, hospital, or [place] health care facility...) When possible be specific @ -[No] Did you speak to anyone other than the patient for history (EMS, parent, family, police, friend...)? What history was obtained from this source @ -[No] Did you review nursing and triage notes (agree or disagree)? Why? @ -[I reviewed and agree with nursing and triage notes] Were old charts reviewed (outside hosp., previous admission, EMS record, old EKG, old radiological studies, urgent care reports/EKG's, [place] [facility] facility records)? Report findings @ -[No old charts were reviewed] Differential Diagnosis (chest pain, altered mental status, abdominal pain women, abdominal pain men, vaginal bleeding, weakness, fever, dyspnea, syncope, headache, dizziness, GI bleed, back pain, seizure, CVA, palpatations, mental health, musculoskeletal)? @ -[Differential Chest Pain: Stable Angina, Unstable Angina, STEMI, NSTEMI Aortic Dissection, Pneumothorax, Musculoskeletal, Esophageal Spasm GERD, Cholecystitis, Pancreatitis, Zoster, this is not meant to be an all-inclusive list. EKG interpreted by me (3pts min.). @ -[I interpreted as above] X-rays interpreted by me (1pt min.). @ -[I interpreted as above CT interpreted by me (1pt min.). @ -[None done] U/S interpreted by me (1pt. min.). @ -[None done] What testing was considered but not performed or refused? (CT, X-rays, U/S, labs)? Why? @ -[None] What meds were considered but not given or refused? Why? @ -[None] Did you discuss the management of the patient with other professionals (professionals i.e. TRUDY Resendez, SCOREBOARD OPERATOR, lab, RT, psych nurse, home health care social worker, group fitness assistant department head, teacher, communications officer, high risk case manager)? Give summary @ -[No] Was smoking cessation discussed for >3mins.? @ -[No] Was critical care preformed (if so, how long)? @ -[No] Were there social determinants of health that impacted care today? How? (Homelessness, low income, unemployed, alcoholism, drug addiction, transportation, low edu. Level, literacy, decrease access to med. care, halfway, rehab)? @ -[No] Was there de-escalation of care discussed even if they declined (Discuss DNR or withdrawal of care, Hospice)? DNR status @ -[No] What co-morbidities impacted this encounter? (DM, HTN, Smoking, COPD, CAD, Cancer, CVA, ARF, Chemo, Hep., AIDS, mental health diagnosis, sleep apnea, morbid obesity)? @ -[None] Was patient admitted / discharged? Hospital course, mention meds given and route, prescriptions, significant lab abnormalities, going to OR and other pertinent info. @ -[Patient is a 34-year-old man presenting to have evaluation of chest tightness associated with some paresthesias. The patient's physical exam is benign. His initial workup is unremarkable. At this point patient stable to have further workup as outpatient. Did discuss having stress test. Discussed appropriate further care and follow-up as well as return parameters Undiagnosed new problem with uncertain prognosis? @ -[No] Drug Therapy requiring intensive monitoring for toxicity (Heparin, Nitro, Insulin, Cardizem)? @ -[No] Were any procedures done? @ -[No] Diagnosis/symptom? @ -[Acute chest pain Acute, or Chronic, or Acute on Chronic? @ -[Acute Uncomplicated (without systemic symptoms) or Complicated (systemic symptoms)? @ -[Uncomplicated Side effects of treatment? @ -[No] Exacerbation, Progression, or Severe Exacerbation? @ -[No] Poses a threat to life or bodily function? How? (Chest pain, [place], [place], pneumonia, PE, COPD, DKA, ARF, appy, cholecystitis, CVA, Diverticulitis, Homicidal, Suicidal, threat to staff... and all critical care pts) @ -[No] All treatments are based on ideal body weight as in ED triage Disposition Clinical Impression: Chest pain Disposition: HOME SELF-CARE Condition: Good Instructions (If sedation given, give patient instructions): Chest Pain (ED) Is patient prescribed a controlled substance at d/c from ED?: No Referrals: Buddy Alvarez MD [Primary Care Provider] - 1-2 days
[2025-01-07 19:20] LABS: Basophils % (A) 1 %; Eosinophils # (A) 0.3 k/uL (0-0.7); Eosinophils % (A) 4 %; HCT 43.2 % (39.0-53.0); HGB 15.1 gm/dL (13.0-17.5); Lymphocytes # (A) 2.4 k/uL (1.0-4.8); Lymphocytes % (A) 32 %; MCHC 34.8 g/dL (31.0-37.0); Mean Platelet Volume 7.6; Monocytes # (A) 0.3 k/uL (0-1.0); Monocytes % (A) 4 %; Neutrophils # (A) 4.4 k/uL (1.3-7.7); Neutrophils % (A) 58 %; Platelet Count 236 k/uL (150-450); RBC 5.02 m/uL (4.30-5.90); RDW 12.6 % (11.5-15.5); WBC 7.6 k/uL (3.8-10.6)
--- NOTE | 2025-01-07 19:38 | XR ---
EXAMINATION TYPE: XR chest 2V DATE OF EXAM: 01/07/2025 7:23 PM COMPARISON: 10/28/2020 CLINICAL INDICATION: Male, 34 years old with history of Chest Pain, TECHNIQUE: XR chest 2V view(s) obtained. FINDINGS: The heart size is normal. The pulmonary vasculature is normal. The lungs are clear. Old right eighth rib fracture is present IMPRESSION: 1. No acute pulmonary process. [facility], , 01/07/2025 7:35 PM
[2025-01-07 19:44] LABS: ALT 28 U/L (4-49); AST 27 U/L (17-59); African American GFR (CKD) >90 (>60 ml/min/1.73 sqM); Albumin 4.7 g/dL (3.5-5.0); Alkaline Phosphatase 75 U/L (38-126); Anion Gap 11 mmol/L; Blood Urea Nitrogen 15 mg/dL (9-20); Calcium 9.9 mg/dL (8.4-10.2); Carbon Dioxide 24 mmol/L (22-30); Chloride 103 mmol/L (98-107); Glucose 94 mg/dL (74-99); Magnesium 2.1 mg/dL (1.6-2.3); Non-African American GFR(CKD) >90 (>60 ml/min/1.73 sqM); Potassium 4.3 mmol/L (3.5-5.1); Sodium 138 mmol/L (137-145); Total Bilirubin 0.6 mg/dL (0.2-1.3); Total Protein 7.5 g/dL (6.3-8.2)
[2025-01-07 19:54] LABS: Influenza A Not Detected (Not Detectd); Influenza B Not Detected (Not Detectd); RSV Not Detected (Not Detectd)
[2025-01-07 20:38] VITALS: BP 131/87; PULSE 72
== END 2025-01-07 20:38 | disposition home or self-care (01) ==
LOC: EC 17:26
DX: R07.89 Other chest pain (principal); I45.10 Unspecified right bundle-branch block; F17.290 Nicotine dependence, other tobacco product, uncomplicated; Z88.5 Allergy status to narcotic agent
CPT/HCPCS: 36415; 71046; 80053; 83735; 84484; 85025; 87636; 93005; 99285

== ENCOUNTER 2025-05-05 09:47 | Emergency (ER) | payer OTHER ==
[2025-05-05 09:58] VITALS: BP 129/82; PULSE 80; TEMP 97.8
--- NOTE | 2025-05-05 10:21 | ED ---
ENT HPI - General Chief complaint: ENT Stated complaint: sore throat Time Seen by Provider: 05/05/25 10:04 Source: patient, RN notes reviewed Mode of arrival: ambulatory Limitations: no limitations - History of Present Illness Initial comments: This is a 34-year-old male with history including nephrolithiasis and umbilical hernia presenting for sore throat (03/26) x 8 days. Patient states he was seen at urgent care on Friday and diagnosed with AOM and tonsillitis, receiving amoxicillin which she has been taking for about 1 week with no ongoing ear pain, just ongoing throat pain (03/26). Patient states he feels he has swelling in his throat and is concerned for abscess. Endorses use of Tylenol this morning. Denies fever, chills, dyspnea, trismus, drooling, dysphagia. MD complaint: sore throat Onset/Timin -: days(s) Location: throat Severity scale (1-10): 5 Consistency: constant Worsens with: swallowing Associated Symptoms: pain with swallowing, sore throat - Related Data Home Medications Medication Instructions Recorded Confirmed Acetaminophen Tab [Tylenol Tab] 500 mg PO Q6H PRN 10/23/20 12/08/24 Ergocalciferol [Vitamin D2 (1250 1,250 mcg PO WEEKLY 12/06/24 12/08/24 Mcg = 53443 Iu)] [place] Carbonate [[place] 450 mg PO HS 12/06/24 12/08/24 Carbonate ER] busPIRone HCL 15 mg PO BID 12/06/24 12/08/24 traZODone HCL 200 mg PO HS 12/06/24 12/08/24 Previous Rx's Medication Instructions Recorded Acetaminophen Tab [Tylenol] 650 mg PO Q6H #30 tab 12/08/24 Docusate [Colace] 100 mg PO BID #20 capsule 12/08/24 Ibuprofen [Motrin] 600 mg PO Q6HR PRN #40 tab 12/08/24 oxyCODONE HCL [OxyIR] 5 mg PO Q6H PRN 3 Days #10 tab 12/08/24 predniSONE 50 mg PO DAILY #5 tab 05/05/25 Allergies Allergy/AdvReac Type Severity Reaction Status Date / Time morphine Allergy Chest Pain Verified 05/05/25 09:57 Review of Systems ROS Statement: Those systems with pertinent positive or pertinent negative responses have been documented in the HPI. ROS Other: All systems not noted in ROS Statement are negative. Past Medical History Additional Past Medical History / Comment(s): HX kidney stones, pleurisy, um bilical hernia. Rt inguinal hernia History of Any Multi-Drug Resistant Organisms: None Reported Past Surgical History: Hernia Repair Additional Past Anesthesia/Blood Transfusion Reaction / Comment(s): no anesthesia hx Past Psychological History: Anxiety, Bipolar, Depression, PTSD Smoking Status: Vaper Past Alcohol Use History: None Reported Past Drug Use History: Marijuana - Past Family History Mother Family Medical History: No Reported History General Exam Limitations: no limitations General appearance: alert, in no apparent distress Head exam: Present: atraumatic, normocephalic, normal inspection Eye exam: Present: normal appearance, PERRL, EOMI. Absent: scleral icterus, conjunctival injection, periorbital swelling ENT exam: Present: normal exam, mucous membranes moist, TM's normal bilaterally (Positive bilateral air-fluid levels with no erythema or bulging), other (Oropharynx is mildly erythematous with +1 left tonsillar hypertrophy without exudate. Negative uvular deviation, oropharyngeal edema, elevation of tongue) Neck exam: Present: normal inspection. Absent: tenderness, meningismus, lymphadenopathy Respiratory exam: Present: normal lung sounds bilaterally. Absent: respiratory distress, wheezes, rales, rhonchi, stridor Cardiovascular Exam: Present: regular rate, normal rhythm, normal heart sounds. Absent: systolic murmur, diastolic murmur, rubs, gallop, clicks GI/Abdominal exam: Present: soft, normal bowel sounds. Absent: distended, tenderness, guarding, rebound, rigid Extremities exam: Present: normal inspection, full ROM, normal capillary refill. Absent: tenderness, pedal edema, joint swelling, calf tenderness Back exam: Present: normal inspection Neurological exam: Present: alert, oriented X3, CN II-XII intact Psychiatric exam: Present: normal affect, normal mood Skin exam: Present: warm, dry, intact, normal color. Absent: rash Course Vital Signs 05/05/25 09:55 Temperature 97.8 F Pulse Rate 80 Respiratory 18 Rate Blood Pressure 129/82 O2 Sat by Pulse 99 Oximetry Medical Decision Making - Medical Decision Making Was pt. sent in by a medical professional or institution (, PA, MEDICAL APPOINTMENT SCHEDULER, urgent care, hospital, or senior living...) When possible be specific @ -No Did you speak to anyone other than the patient for history (EMS, parent, family, police, friend...)? What history was obtained from this source @ -No Did you review nursing and triage notes (agree or disagree)? Why? @ -I reviewed and agree with nursing and triage notes Were old charts reviewed (outside hosp., previous admission, EMS record, old EKG, old radiological studies, urgent care reports/EKG's, senior living records)? Report findings @ -No old charts were reviewed Differential Diagnosis (chest pain, altered mental status, abdominal pain women, abdominal pain men, vaginal bleeding, weakness, fever, dyspnea, syncope, headache, dizziness, GI bleed, back pain, seizure, CVA, palpatations, mental health, musculoskeletal)? @ -Differential Fever: Pneumonia, viral URI, endocarditis, myocarditis, pericarditis, otitis, sinusitis, peritonsillar Abscess, retropharyngeal Abscess, epiglottitis, peritonitis, appendicitis, [place] cystitis, diverticulitis, hepatitis, colitis, UTI, PID, TOA, pyelonephritis, prostatitis, epididymitis, meningitis, encephalitis, pulmonary embolism, CVA, thyroid storm, pancreatitis, adrenal crisis, cavernous sinus thrombosis, this is not meant to be an all-inclusive list. EKG interpreted by me (3pts min.). @ -Not done X-rays interpreted by me (1pt min.). @ -None done CT interpreted by me (1pt min.). @ -None done U/S interpreted by me (1pt. min.). @ -None done What testing was considered but not performed or refused? (CT, X-rays, U/S, labs)? Why? @ -None What meds were considered but not given or refused? Why? @ -None Did you discuss the management of the patient with other professionals (professionals i.e. Dr., PA, MEDICAL APPOINTMENT SCHEDULER, lab, RT, psych nurse, director social welfare, runway model, teacher, resident medical officer, case reviewer)? Give summary @ -No Was smoking cessation discussed for >3mins.? @ -No Was critical care preformed (if so, how long)? @ -No Were there social determinants of health that impacted care today? How? (Homelessness, low income, unemployed, alcoholism, drug addiction, transportation, low edu. Level, literacy, decrease access to med. care, half-way, rehab)? @ -No Was there de-escalation of care discussed even if they declined (Discuss DNR or withdrawal of care, Hospice)? DNR status @ -No What co-morbidities impacted this encounter? (DM, HTN, Smoking, COPD, CAD, Cancer, CVA, ARF, Chemo, Hep., AIDS, mental health diagnosis, sleep apnea, morbid obesity)? @ -None Was patient admitted / discharged? Hospital course, mention meds given and route, prescriptions, significant lab abnormalities, going to OR and other pertinent info. @ -Patient given IM Decadron for pain. Strep test negative. Prednisone was sent to patient's pharmacy. Advised supportive care and follow-up with PCP for any ongoing symptoms. Discussed patient with Dr. Monet. Undiagnosed new problem with uncertain prognosis? @ -No Drug Therapy requiring intensive monitoring for toxicity (Heparin, Nitro, Insulin, Cardizem)? @ -No Were any procedures done? @ -No Diagnosis/symptom? @ -Pharyngitis Acute, or Chronic, or Acute on Chronic? @ -Acute Uncomplicated (without systemic symptoms) or Complicated (systemic symptoms)? @ -Uncomplicated Side effects of treatment? @ -No Exacerbation, Progression, or Severe Exacerbation? @ -No Poses a threat to life or bodily function? How? (Chest pain, [place], [place], pneumonia, PE, COPD, DKA, ARF, appy, cholecystitis, CVA, Diverticulitis, Homicidal, Suicidal, threat to staff... and all critical care pts) @ -No - Lab Data Lab Results 05/05/25 Range/Units 10:16 Group A Strep (PCR) NOT DETECTED (Not Detectd) Disposition Clinical Impression: Pharyngitis Disposition: HOME SELF-CARE Condition: Good Instructions (If sedation given, give patient instructions): Pharyngitis (ED) Additional Instructions: Honey, warm fluids, ice chips, popsicles, warm salt water gargles for sore throat. Alternate Tylenol/Motrin every 4 hours for pain. Follow-up with primary care for any ongoing symptoms. Prescriptions: predniSONE 50 mg PO DAILY #5 tab Is patient prescribed a controlled substance at d/c from ED?: No Referrals: Buddy Alvarez MD [Primary Care Provider] - 1-2 days Time of Disposition: 10:45
[2025-05-05] MEDS: DEXAMETHASONE SOD PHOSPHATE 10 MG/ML 1 ML VIAL IM STA (10:43)
[2025-05-05 10:51] VITALS: RESP 16
== END 2025-05-05 10:51 | disposition home or self-care (01) ==
LOC: EC 09:47
DX: J02.9 Acute pharyngitis, unspecified (principal); F17.290 Nicotine dependence, other tobacco product, uncomplicated; Z88.5 Allergy status to narcotic agent
CPT/HCPCS: 87651; 99283; 96372; J1100